=== PATIENT | female | born 1950 | race Caucasian/White ===

== ENCOUNTER → 2024-08-29 | Outpatient (CLI) | payer MEDICARE, OTHER, SELFPAY ==
[2024-08-29 14:13] LABS: Albumin, Serum 4.5 gm/dL (3.4-4.8); Anion Gap 4 (7-16); BUN/Creatinine Ratio 19 Ratio (12-20); Blood Urea Nitrogen 25 mg/dL (9-23); Calcium 9.6 mg/dL (8.3-10.6); Calcium (Corrected) 9.6 mg/dL (8.5-10.1); Carbon Dioxide 30.8 mMol/L (20.0-31.0); Chloride 103 mMol/L (98-107); Creatinine (Component) 1.3 mg/dL (0.6-1.3); Glucose 79 mg/dL (74-106); Osmolality,Calculated 279 (275-295); Phosphorous 4.2 mg/dL (2.4-5.1); Sodium 138 mMol/L (136-145); eGFR 43 See Note
== END | disposition home or self-care (01) ==
LOC: COPL 12:22
PROVIDERS: PCP Nurse Practitioner Family; Referring Provider Internal Medicine; Visit Provider Internal Medicine
DX: I12.9 Hypertensive chronic kidney disease with stage 1 through stage 4 chronic kidney disease, or unspecified chronic kidney disease (principal); N18.31 Chronic kidney disease, stage 3a; D63.1 Anemia in chronic kidney disease; R53.83 Other fatigue; R30.0 Dysuria; R35.0 Frequency of micturition; E55.9 Vitamin D deficiency, unspecified
CPT/HCPCS: 36415; 80069

== ENCOUNTER 2024-09-08 15:54 | Emergency (ER) | payer MEDICARE, OTHER, SELFPAY ==
[2024-09-08 15:56] VITALS: BMI 25.6
[2024-09-08 16:04] VITALS: BP 152/81; PULSE 66; RESP 20; TEMP 36.8; O2SAT 95
[2024-09-08 16:25] VITALS: BP 147/97; PULSE 60; RESP 15; TEMP 37; O2SAT 97
--- NOTE | 2024-09-08 16:28 | EDNOTE_ITS ---
ED Dizzyness RME/HPI General Chief Complaint: Dizziness Stated Complaint: Dizziness/weakness Time Seen by Provider: 09/08/24 16:12 Arrival date/time: 09/08/24 15:54 Limitations: no limitations RME / HPI RME / HPI Narrative: Patient has no significant complaints today. States she has not been resting much lately due to her needing surgery. Today came back to the care home facility that her and her reside and by mistake went into another patient's bathroom to make a phone call, thinking that is her 's bathroom. The care home facility nursing staff decided to route her to emergency department for evaluation. Patient states she suffers from chronic left-sided abdominal pain, but it is not bothering her. Also has orthostatic dizziness which is chronic as well and has not changed. I took over the care from Dr. Barba at 6 PM on 09/08/2024, see his notes for complete H&P and ED course. I reviewed all diagnostic test results. My interpretation of the EKG is sinus rhythm with nonspecific ST-T changes. My interpretation of the chest x-ray is no acute findings. My review of the head CT report is no acute findings. Blood tests and urine tests are unremarkable. Patient remained stable. Recommended more outpatient workup. Based on my best medical judgment, made decision no further evaluation or treatment indicated at this time. Patient understands and agrees to the discharge instructions customized and printed, see below. Simeon Hart MD Related Data Home Medications ?Medication ?Instructions ?Recorded ?Confirmed folic acid 1 mg tablet 1 mg PO QDAY SUPPLEMENT #0 tabs 10/25/13 07/17/24 hydrocodone 10 mg-acetaminophen 1 tab PO Q6H PRN Pain ##180 04/11/17 07/17/24 325 mg tablet levothyroxine 75 mcg tablet 75 mcg PO QDAY ##0 04/13/17 07/17/24 (Synthroid) tiotropium bromide 18 mcg capsule 1 cap inhalation QDAY #0 puffs 08/03/17 07/17/24 with inhalation device (Spiriva with HandiHaler) fentanyl 50 mcg/hr transdermal 50 mcg topical Q72H 06/25/18 07/17/24 patch fluoxetine 40 mg capsule (Prozac) 60 mg PO QDAY 02/28/19 07/17/24 amlodipine 10 mg tablet 5 mg PO QDAY 01/11/20 07/17/24 docusate sodium 100 mg tablet 100 mg PO QDAY 07/17/24 07/17/24 ergocalciferol (vitamin D2) 1,250 1,250 mcg PO QMONTH 07/17/24 07/17/24 mcg (50,000 unit) capsule (Drisdol) lubiprostone 24 mcg capsule 24 mcg PO BID PRN Constipation 07/17/24 07/17/24 Allergies Allergy/AdvReac Type Severity Reaction Status Date / Time Cephalosporins Allergy Severe Rash Verified 09/08/24 16:01 iodine Allergy Severe RASH, HIVES Verified 09/08/24 16:01 levofloxacin Allergy Severe DESTROYS Verified 09/08/24 16:01 FEET TENDONS Penicillins Allergy Severe Rash Verified 09/08/24 16:01 Sulfa (Sulfonamide Allergy Severe Rash Verified 09/08/24 16:01 Antibiotics) cefazolin Allergy Unknown RASH, Verified 09/08/24 16:01 DIFFICULTY BREATHING Review of Systems Review of Systems Systems Reviewed: All systems reviewed, normal except as documented Past Medical History Past Medical History NEUROLOGIC: Positive Neurological Disorders, Transient Ischemic Attacks (TIA) and Peripheral Neuropathy CARDIAC: Positive Cardiac Disorders, Cardiac Arrhythmia, Hypercholesterolemia, Congestive Heart Failure (CHF but per pt, it's gone away now; i don't take meds for it. ), Edema, Deep Vein Thrombosis and Hypertension RESPIRATORY: Positive Chronic Obstructive Pulmonary Disease (COPD), Asthma (COPD), Bronchitis and Pneumonia GASTROINTESTINAL: Positive Gastrointestinal Disorders, Diverticulitis, Diverticulosis, Obstructive Bowel and Gastroesophageal Reflux Disease GENITOURINARY: Positive Genitourinary Disorders and Renal Disease (stage 3/4 kidney disease) REPRODUCTIVE: Positive Previous Pregnancies MUSCULOSKELETAL: Positive Musculoskeletal Disorders ENT: Positive Cataracts and Deafness (pt uses hearing aid bilaterally) ENDOCRINE: Positive Endocrine Disorders and Hypothyroidism HEMATOLOGIC: Positive Clotting Problems PSYCHO/SOCIAL: Positive Depression and Anxiety OTHER HISTORY: Positive Hospitalization, Falls and Measles Family History FAMILY HISTORY: Positive Family Respiratory Disorders, Family Cardiac Disorders, Family Endocrine Disorders (per pt, my grandmother had diabetes. ) and Family Cancer (per pt , my sisters had uterine cancer. ) Surgical History SURGICAL: Positive Pacemaker, Abdominal Surgery, Bowel Surgery, Lumpectomy and Hysterectomy Social History SMOKING STATUS: Never smoker SUBSTANCE USE: does not use ED Exam General Limitations: Present no limitations General appearance: Present alert and in no apparent distress Head Head exam: Present atraumatic, normocephalic and normal inspection Eye Eye exam: Present normal appearance, PERRL and EOMI ENT ENT exam: Present normal exam and normal oropharynx Neck Neck exam: Present normal inspection and full ROM Chest Chest inspection: Present normal inspection and symmetric chest wall rise Respiratory Respiratory exam: Present normal lung sounds bilaterally Cardiovascular Cardiovascular exam: Present regular rate and normal rhythm Abdominal Exam Abdominal exam: Present soft and normal bowel sounds Extremities Exam Extremities exam: Present normal inspection and full ROM Back Exam Back exam: Present normal inspection and full ROM Neurological Exam Neurological exam: Present alert, CN II-XII intact and normal gait Psychiatric Psychiatric exam: Present normal affect and normal mood Skin Skin exam: Present warm and dry Course Course Course Narrative: 1800: Patient signed out to Dr. Hart, pending labs and final disposition. Quality Measures none Orders Category Date Time Status CT Screening NOW Care 09/08/24 18:53 Active It Lead STAT Care 09/08/24 16:32 Completed Continuous Pulse Oximetry ONCE Care 09/08/24 16:32 Active EKG (ED ONLY) *Do not use* NOW Care 09/08/24 16:32 Completed Insert IV STAT Care 09/08/24 16:32 Active Straight [In and Out Catheter] X1 Care 09/08/24 18:[address] head/brain w con Stat Exams 09/08/24 18:[address] head/brain wo con Stat Exams 09/08/24 20:14 Completed EKG (ED Only) Stat Exams 09/08/24 16:32 Draft XR chest 1V portable Stat Exams 09/08/24 16:32 Completed B-Type Natriuretic Peptide Stat Lab 09/08/24 17:40 Completed CBC Stat Lab 09/08/24 17:40 Completed Comprehensive Metabolic Panel Stat Lab 09/08/24 17:40 Completed Drug Screen,Urine Stat Lab 09/08/24 19:00 Completed Magnesium Stat Lab 09/08/24 17:40 Completed Troponin I Stat Lab 09/08/24 17:40 Completed VBG [Venous Blood Gas] Stat Lab 09/08/24 17:40 Completed Vital Signs Vital signs: Vital Signs Temperature 98.2 F 09/08/24 16:04 Pulse Rate 66 09/08/24 16:04 Respiratory Rate 20 09/08/24 16:04 Blood Pressure 152/81 H 09/08/24 16:04 Pulse Oximetry (%) 95 09/08/24 16:04 Oxygen Delivery Method Room Air 09/08/24 16:04 Pulse ox is 95% on room air which is adequate. Dizziness MDM Narrative MDM Narrative:: Catie Rosales am scribing for and in the presence of Dr. Barba. Patient data External records reviewed:: [facility] previous records (I reviewed ED visit on 08/15/2024) Clinical information provided by:: patient Social determinants that could affect healthcare access:: none Patient has the following chronic illnesses:: diverticulosis with multiple abdominal surgeries, hypertension, hyperlipidemia, DVT of left upper extremity, COPD, chronic pain, hypothyroidism How is presenting disease/condition affected by chronic disease/condition?: exacerbated by Evaluation data The following diagnostics were reviewed and interpreted by me:: lab results, radiology exam(s) and EKG tracing(s) (Atrial paced rhythm, rate 65, nonspecific ST and T-wave changes ) Lab and/or radiology exams considered but not ordered:: None Interpretation Summary: CBC within normal limits. Remainder of labs pending during sign out Medications / Prescriptions Medications or Prescriptions considered but not ordered:: None Medication administrations:: See above Consultations Consultation(s) initiated? (list below): No Diagnosis Most likely diagnosis given after review of the tests above:: Dizziness Admission Indicated Admission indicated?: not indicated Explain why admission is indicated or not indicated:: 1800: Patient signed out to Dr. Hart, pending labs and final disposition. Admission Request Was there a request for admission?: No Disposition Plan Disposition Plan: other (specify) (Patient signed out to Dr. Hart ) Discharge Plan Plan Patient Disposition: HOME (Self Care) Prescriptions/Referrals Prescriptions/Med Rec: No Action folic acid 1 MG tablet 1 mg PO QDAY Qty: 0 hydrocodone-acetaminophen 10-325 mg Tablet 1 tab PO Q6H PRN (Reason: Pain) Qty: 180 Hold Instructions: Resume on 07/18/24. levothyroxine [Synthroid] 75 mcg Tablet 75 mcg PO QDAY Qty: 0 tiotropium bromide [Spiriva with HandiHaler] 18 mcg Capsule, W/Inhalation Device 1 cap INHALATION QDAY Qty: 0 fentanyl 50 mcg/hr Patch 72 Hour 50 mcg Topical Q72H amlodipine 10 mg tablet 5 mg PO QDAY fluoxetine [Prozac] 40 mg Capsule 60 mg PO QDAY ergocalciferol (vitamin D2) [Drisdol] 1,250 mcg (50,000 unit) Capsule 1,250 mcg PO QMONTH docusate sodium 100 mg Tablet 100 mg PO QDAY lubiprostone 24 mcg Capsule 24 mcg PO BID PRN (Reason: Constipation) Referrals: No Primary/Family,Physician [Referring Provider] - In 1 week Problem List Clinical Impression: Dizziness Patient/Caregiver Discharge Instructions Discharge Activity: activity as tolerated Education Materials: ED Dizziness, Uncertain Cause Additional Instructions: Discharge instructions from Dr. Hart: 1. You were evaluated here today because the hospital nursing staff thought you seemed confused. 2. After extensive evaluation, there is no life-threatening condition. Such as stroke or heart attack. And the blood and urine test were completely normal. 3. See a private doctor on 09/11/2024 for recheck and further care. Ask for help with more investigation not available here, such as brain MRI and referrals to see specialists (such as neurologist). 4. Seek immediate medical care with any concerns. Print Language: Hungarian Stand Alone Forms: [facility] Award Info., Patient Portal Info Letter
[2024-09-08 16:29] VITALS: BP 125/75; BP 130/75; BP 141/71; PULSE 60; PULSE 67
--- NOTE | 2024-09-08 16:32 | EKG_ITS ---
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
--- NOTE | 2024-09-08 16:32 | XR_ITS ---
Examination: AP chest single view Technique: AP portable upright chest single view Exam date and time: September 08, 2024 1648 hrs. Comparison January 11, 2020 Indications: Onset chest pain today Findings: Normal heart size Mild to moderate elevation right hemidiaphragm Mild vascular congestion No lobar pneumonia or pulmonary edema Right subclavian Port-A-Cath tip SVC Cardiac leads satisfactory position Impression: Mild vascular congestion
[2024-09-08 17:54] LABS: Base Excess, Venous 0 (-3-3); O2 Saturation, Venous 76 % (96-97); PCO2, Venous 47 mmHg (36-56); PO2, Venous 40 mmHg (15-58); pH, Venous 7.35 (7.33-7.66)
[2024-09-08 17:58] LABS: Basophils # (Auto) 0.1 Thou/mm3 (0.0-0.2); Basophils % (Auto) 1 % (0-2.5); Eosinophils % (Auto) 1 % (0-10); Hematocrit 39.1 % (36.0-46.0); Hemoglobin 13.2 g/dL (12.0-16.0); Immature Granulocytes % (Auto) 0 % (0-0); Immature Granulocytes Auto 0.02 Thou/mm3 (0.00-0.00); Lymphocytes # (Auto) 2.5 Thou/mm3 (1.0-4.8); Lymphocytes % (Auto) 31 % (10-50); Mean Corpuscular HGB Conc 33.8 g/dl (31.0-37.0); Mean Corpuscular Hemoglobin 32.5 pg (25.0-35.0); Mean Corpuscular Volume 96 fL (80-100); Monocytes # (Auto) 0.8 Thou/mm3 (0.0-0.8); Monocytes % (Auto) 9 % (0-12); Neutrophils # (Auto) 4.7 Thou/mm3 (1.8-7.7); Neutrophils % (Auto) 59 % (37-80); Nucleated Red Blood Cell % 0 /100 WBC (0); Platelet Count 253 Thou/mm3 (140-440); RDW Standard Deviation 47.5 fL (36.4-46.3); Red Blood Count 4.06 Miln/mm3 (4.00-5.20)
[2024-09-08 18:09] VITALS: BP 157/83; PULSE 64; RESP 16; TEMP 36.6; O2SAT 99
[2024-09-08 18:16] LABS: B-Type Natriuretic Peptide 137 pg/mL (0-100)
[2024-09-08 18:19] LABS: Alanine Aminotransferase 15 U/L (10-49); Albumin, Serum 4.8 gm/dL (3.4-4.8); Albumin/Globulin Ratio 1.8 (1.2-2.2); Alkaline Phosphatase 93 U/L (46-116); Anion Gap 7 (7-16); Aspartate Amino Transferase 38 U/L (0-34); BUN/Creatinine Ratio 14 Ratio (12-20); Bilirubin,Total 0.6 mg/dL (0.3-1.2); Blood Urea Nitrogen 20 mg/dL (9-23); Calcium 9.9 mg/dL (8.3-10.6); Calcium (Corrected) 9.9 mg/dL (8.5-10.1); Carbon Dioxide 25.8 mMol/L (20.0-31.0); Chloride 105 mMol/L (98-107); Creatinine (Component) 1.4 mg/dL (0.6-1.3); Estimated Creatinine Clearance 30.9 mL/min (>60); Globulin 2.7 gm/dL (2.3-3.5); Glucose 101 mg/dL (74-106); Osmolality,Calculated 278 (275-295); Potassium 5.3 mMol/L (3.4-5.1); Sodium 138 mMol/L (136-145); Total Protein 7.5 gm/dL (5.7-8.2); Troponin I < 0.020 ng/mL (0.0-0.045); eGFR 39 See Note
[2024-09-08 18:52] VITALS: BP 133/81; PULSE 89; RESP 20; TEMP 36.8; O2SAT 95
[2024-09-08 19:58] LABS: Amphetamine/Methamp Scrn,U Negative (Negative); Barbiturate Screen,Urine Negative (Negative); Benzodiazepines Screen,Urine Negative (Negative); Benzoylecgonine Screen, Ur Negative (Negative); Fentanyl Screen,Urine Positive (Negative); Opiate Screen,Urine Positive (Negative); THC Screen,Urine Negative (Negative)
--- NOTE | 2024-09-08 20:14 | XR_ITS ---
Examination: CT brain head without contrast. 2-D sagittal coronal reconstructions Date and time of exam:September 08, 2024 2049 hrs. Indications: Onset dizziness altered mental status weakness today CTDI: vol (mGy):45.3 DLP: (mGycm):887 Technique: Multiple CT axial sections of the brain have been obtained, 5 mm slice thickness. Contrast has not been administered. 2-D sagittal, coronal reconstructions have been obtained Low dose protocols were performed. One or more of the following dose reduction techniques were used; automated exposure control, adjustment of the mA and/or KV according to patient size, use of iterative reconstruction technique. Findings: No significant ventricular enlargement. Intra-axial or extra-axial hemorrhage density is not seen. No mass effect or midline shift Basal cisterns are not remarkable. Fourth ventricle is midline. Cranial vault intact. Impression: Negative for acute hemorrhage, mass effect or midline shift Advise clinical correlation and follow-up accordingly
[2024-09-08 21:27] VITALS: BP 143/82; PULSE 14; PULSE 66; RESP 97; TEMP 37.1; O2SAT 96
== END 2024-09-08 21:58 | disposition home or self-care (01) ==
PROVIDERS: Emergency Medicine; Emergency Provider Emergency Medicine; PCP Family Medicine
DX: R42 Dizziness and giddiness (principal); R53.1 Weakness; I45.89 Other specified conduction disorders; Z95.0 Presence of cardiac pacemaker; E78.00 Pure hypercholesterolemia, unspecified; I50.9 Heart failure, unspecified; I11.0 Hypertensive heart disease with heart failure
CPT/HCPCS: 36415; 70450; 71045; 80053; 80307; 82803; 83735; 83880; 84484; 85025; 93005; 99284

== ENCOUNTER 2024-09-11 14:20 | Outpatient (RCR) | payer MEDICARE, OTHER, SELFPAY | END 2024-09-16 23:59 | disposition home or self-care (01) | LOC: SCTC 14:20 | PROVIDERS: PCP Family Medicine; Referring Provider Family Medicine; Visit Provider Internal Medicine Hematology & Oncology | DX: Z45.2 Encounter for adjustment and management of vascular access device (principal); Z86.718 Personal history of other venous thrombosis and embolism | CPT/HCPCS: 96523; A4216; J1642 ==

== ENCOUNTER 2024-09-21 21:02 | Emergency (ER) | payer MEDICARE, OTHER, SELFPAY ==
[2024-09-21 21:04] VITALS: BP 163/96; PULSE 72; RESP 17; TEMP 37.6; O2SAT 97
[2024-09-21 21:57] VITALS: PULSE 106; RESP 18; O2SAT 98; BMI 25.4
[2024-09-21 22:11] VITALS: BP 195/107; PULSE 71; RESP 18; TEMP 36.8; O2SAT 96
[2024-09-21 23:39] VITALS: BP 185/101; PULSE 80; RESP 18; O2SAT 99
--- NOTE | 2024-09-21 23:41 | EDNOTE_ITS ---
Lower Extremity Injury RME/HPI General Chief Complaint: Extremity Injury, Lower Stated Complaint: ABD PAIN Arrival date/time: 09/21/24 21:02 Limitations: no limitations RME / HPI RME / HPI Narrative: Dr. Cortés's Main ED Evaluation: 73yo female presents to the ED for a chief complaint of burning pain to her BLE. Patient has a history of nerve damage and normally takes 4 Norcos daily, but states she ran out. She states she had given her Norcos due to him being in severe pain before he was admitted to the hospital. She states she was spacing out her Norcos and has only been taking one per day. She states she doesn't have a f/u appointment with her pain provider until 09/29/24. Denies any falls, injuries or loss of consciousness. She denies any fever, chills, cough, chest pain or any other associated symptoms. She notes she is staying with a friend. PMHx: diverticulosis with multiple abdominal surgeries, hypertension, hyperlipidemia, DVT of left upper extremity, COPD, chronic pain, hypothyroidism Related Data Home Medications ?Medication ?Instructions ?Recorded ?Confirmed folic acid 1 mg tablet 1 mg PO QDAY SUPPLEMENT #0 tabs 10/25/13 07/17/24 hydrocodone 10 mg-acetaminophen 1 tab PO Q6H PRN Pain ##180 04/11/17 07/17/24 325 mg tablet levothyroxine 75 mcg tablet 75 mcg PO QDAY ##0 04/13/17 07/17/24 (Synthroid) tiotropium bromide 18 mcg capsule 1 cap inhalation QDAY #0 puffs 08/03/17 07/17/24 with inhalation device (Spiriva with HandiHaler) fentanyl 50 mcg/hr transdermal 50 mcg topical Q72H 06/25/18 07/17/24 patch fluoxetine 40 mg capsule (Prozac) 60 mg PO QDAY 02/28/19 07/17/24 amlodipine 10 mg tablet 5 mg PO QDAY 01/11/20 07/17/24 docusate sodium 100 mg tablet 100 mg PO QDAY 07/17/24 07/17/24 ergocalciferol (vitamin D2) 1,250 1,250 mcg PO QMONTH 07/17/24 07/17/24 mcg (50,000 unit) capsule (Drisdol) lubiprostone 24 mcg capsule 24 mcg PO BID PRN Constipation 07/17/24 07/17/24 Allergies Allergy/AdvReac Type Severity Reaction Status Date / Time Cephalosporins Allergy Severe Rash Verified 09/08/24 16:01 iodine Allergy Severe RASH, HIVES Verified 09/08/24 16:01 levofloxacin Allergy Severe DESTROYS Verified 09/08/24 16:01 FEET TENDONS Penicillins Allergy Severe Rash Verified 09/08/24 16:01 Sulfa (Sulfonamide Allergy Severe Rash Verified 09/08/24 16:01 Antibiotics) cefazolin Allergy Unknown RASH, Verified 09/08/24 16:01 DIFFICULTY BREATHING Review of Systems Review of Systems Systems Reviewed: All systems reviewed, normal except as documented Past Medical History Past Medical History NEUROLOGIC: Positive Neurological Disorders, Transient Ischemic Attacks (TIA) and Peripheral Neuropathy; Negative Seizures CARDIAC: Positive Cardiac Disorders, Cardiac Arrhythmia, Hypercholesterolemia, Edema, Deep Vein Thrombosis and Hypertension; Negative Congestive Heart Failure RESPIRATORY: Positive Asthma, Bronchitis and Pneumonia; Negative Chronic Obstructive Pulmonary Disease (COPD) GASTROINTESTINAL: Positive Gastrointestinal Disorders, Diverticulitis, Diverticulosis, Obstructive Bowel and Gastroesophageal Reflux Disease GENITOURINARY: Positive Genitourinary Disorders and Renal Disease REPRODUCTIVE: Positive Previous Pregnancies MUSCULOSKELETAL: Positive Musculoskeletal Disorders ENT: Positive Cataracts and Deafness ENDOCRINE: Positive Endocrine Disorders and Hypothyroidism; Negative Diabetes Mellitus Type 1 or Diabetes Mellitus Type 2 HEMATOLOGIC: Positive Clotting Problems; Negative Blood Disorders or Sickle Cell Disease PSYCHO/SOCIAL: Positive Depression and Anxiety OTHER HISTORY: Positive Hospitalization, Falls and Measles; Negative Shingles, Blood Transfusions, Anesthesia Reactions or Cancer Family History FAMILY HISTORY: Positive Family Respiratory Disorders, Family Cardiac Disorders and Family Cancer Surgical History SURGICAL: Positive Pacemaker, Abdominal Surgery, Bowel Surgery, Lumpectomy and Hysterectomy Social History SMOKING STATUS: Never smoker SUBSTANCE USE: does not use ED Exam General Limitations: Present no limitations General appearance: Present alert, in no apparent distress, anxious and other (is pacing around the room and is upset) Head Head exam: Present atraumatic Eye Eye exam: Present normal appearance, PERRL and EOMI ENT ENT exam: Present normal exam, normal oropharynx and mucous membranes moist Neck Neck exam: Present normal inspection, full ROM and trachea midline Chest Chest inspection: Present normal inspection and symmetric chest wall rise Respiratory Respiratory exam: Present normal lung sounds bilaterally Cardiovascular Cardiovascular exam: Present regular rate, normal rhythm and normal heart sounds Abdominal Exam Abdominal exam: Present soft, normal bowel sounds and other (large); Absent tenderness Extremities Exam Extremities exam: Present full ROM and other (has varicose veins to her BLE, nonbulging); Absent tenderness or pedal edema Back Exam Back exam: Present full ROM and other (kyphotic) Neurological Exam Neurological exam: Present alert, oriented X3 and CN II-XII intact Psychiatric Psychiatric exam: Present normal affect and normal mood Skin Skin exam: Present warm, dry, intact and normal color Course Quality Measures none Orders Category Date Time Status BMP [Basic Metabolic Panel] Stat Lab 09/21/24 23:52 Completed CBC Stat Lab 09/21/24 23:52 Completed HYDROcodone/APAP 10/325 [[place] 10/325] Med 09/21/24 23:42 Discontinued 1 tab PO X1 ONE Morphine Inj Med 09/22/24 00:20 Discontinued 4 mg IVP X1 ONE Morphine Inj [Morphine Sulf Inj] Med 09/21/24 23:52 Active 4 mg IVP Q1H PRN Morphine Inj [Morphine Sulf Inj] Med 09/22/24 00:08 Active 4 mg IVP Q1H PRN Ondansetron Inj [Zofran Inj] Med 09/21/24 23:50 Discontinued 4 mg IV X1 ONE Sodium Chloride 0.9% 500 ml [Ns] 500 ml Med 09/21/24 23:50 Discontinued IV 999 mls/hr fentaNYL (Patch) [Duragesic] Med 09/21/24 23:41 Discontinued 25 mcg TOP X1 ONE Vital Signs Vital signs: Vital Signs Temperature 99.6 F 09/21/24 21:04 Pulse Rate 72 09/21/24 21:04 Respiratory Rate 17 09/21/24 21:04 Blood Pressure 163/96 H 09/21/24 21:04 Pulse Oximetry (%) 97 09/21/24 21:04 Oxygen Delivery Method Room Air 09/21/24 21:04 Pulse ox is 97% on room air, which is normal according to my interpretation. Extremity Injury, Lower Patient data External records reviewed:: [facility] previous records (Per chart review, patient was seen here on 09/08/24 for dizziness.) Clinical information provided by:: patient Social determinants that could affect healthcare access:: none Patient has the following chronic illnesses:: diverticulosis with multiple abdominal surgeries, hypertension, hyperlipidemia, DVT of left upper extremity, COPD, chronic pain, hypothyroidism How is presenting disease/condition affected by chronic disease/condition?: caused by Evaluation data The following diagnostics were reviewed and interpreted by me:: lab results Lab and/or radiology exams considered but not ordered:: none Interpretation Summary: CBC is normal, BMP is normal, according to my interpretation. Medications / Prescriptions Medications or Prescriptions considered but not ordered:: none Medication administrations:: Medication Administration History Morphine Sulfate (Morphine Sulf Inj 4 Mg/Ml Vial) 4 mg IVP Q1H PRN PRN Reason: PAIN Morphine Sulfate (Morphine Sulf Inj 4 Mg/Ml Vial) 4 mg IVP Q1H PRN PRN Reason: LEG CRAMPS Discontinued Medications Hydrocodone Bitart/Acetaminophen (Hydrocodone/Apap 10/325 Tab) 1 tab PO X1 ONE Stop: 09/21/24 23:43 Last Admin: 09/22/24 00:41 Dose: 1 tab Documented By: NOELLE Fentanyl (Fentanyl 25 Mcg Transdermal Patch) 25 mcg TOP X1 ONE; Protocol Stop: 09/21/24 23:42 Last Admin: 09/22/24 02:05 Dose: 25 mcg Documented By: NOELLE Sodium Chloride (Ns) 500 mls @ 999 mls/hr IV .Q31M ONE Stop: 09/22/24 00:20 Last Infusion: 09/22/24 02:13 Dose: Infused Documented By: Admin: 09/22/24 00:31 Dose: 999 mls/hr Documented By: NOELLE Morphine Sulfate (Morphine Sulf Inj 10 Mg/Ml Vial) 4 mg IVP X1 ONE Stop: 09/22/24 00:21 Last Admin: 09/22/24 00:30 Dose: 4 mg Documented By: NOELLE Ondansetron HCl (Ondansetron Inj 2 Mg/Ml Inj 2 Ml) 4 mg IV X1 ONE; Protocol Stop: 09/21/24 23:51 Last Admin: 09/22/24 00:31 Dose: 4 mg Documented By: NOELLE see above Consultations Consultation(s) initiated? (list below): No Diagnosis Extremity Injury, Lower Differential Diagnosis: other (pain control, anxiety, worsening of underlying condition, recurrent DVT) Most likely diagnosis given after review of the tests above:: see below Admission Indicated Admission indicated?: not indicated Admission Request Was there a request for admission?: No Disposition Plan Disposition Plan: Discharge Discharge Attestation Discharge Attestation: The patient and all family members were given an opportunity to ask questions and understood the discharge instructions. Discharge instructions specifically effects, indications for sooner follow up or return to the emergency department, and the expected course of current diagnosis. Patient condition: Stable Discharge Plan Plan Patient Disposition: HOME (Self Care) Patient condition on transfer: Stable Prescriptions/Referrals Prescriptions/Med Rec: No Action folic acid 1 MG tablet 1 mg PO QDAY Qty: 0 hydrocodone-acetaminophen 10-325 mg Tablet 1 tab PO Q6H PRN (Reason: Pain) Qty: 180 Hold Instructions: Resume on 07/18/24. levothyroxine [Synthroid] 75 mcg Tablet 75 mcg PO QDAY Qty: 0 tiotropium bromide [Spiriva with HandiHaler] 18 mcg Capsule, W/Inhalation Device 1 cap INHALATION QDAY Qty: 0 fentanyl 50 mcg/hr Patch 72 Hour 50 mcg Topical Q72H amlodipine 10 mg tablet 5 mg PO QDAY fluoxetine [Prozac] 40 mg Capsule 60 mg PO QDAY ergocalciferol (vitamin D2) [Drisdol] 1,250 mcg (50,000 unit) Capsule 1,250 mcg PO QMONTH docusate sodium 100 mg Tablet 100 mg PO QDAY lubiprostone 24 mcg Capsule 24 mcg PO BID PRN (Reason: Constipation) Referrals: Moon Loyola DOCUMENTATION BILLING CLERK [Primary Care Provider] - In 1 week Problem List Clinical Impression: Chronic pain syndrome Patient/Caregiver Discharge Instructions Education Materials: ED Chronic Pain Print Language: Luxembourgish Stand Alone Forms: [facility] Award Info., Patient Portal Info Letter
[2024-09-22] MEDS: MORPHINE SULF INJ 10 MG/ML VIAL 4 MG IVP ×2 (00:30→05:09)
[2024-09-22] MEDS: ONDANSETRON INJ 2 MG/ML INJ 2 ML 4 MG IV (00:31)
[2024-09-22] MEDS: SODIUM CHLORIDE 0.9% 500 ML 500 ML 999 ML IV (00:31)
[2024-09-22 00:34] LABS: Basophils # (Auto) 0.1 Thou/mm3 (0.0-0.2); Basophils % (Auto) 1 % (0-2.5); Eosinophils # (Auto) 0.2 Thou/mm3 (0.0-0.5); Eosinophils % (Auto) 2 % (0-10); Hematocrit 44.2 % (36.0-46.0); Hemoglobin 14.8 g/dL (12.0-16.0); Immature Granulocytes % (Auto) 0 % (0-0); Immature Granulocytes Auto 0.02 Thou/mm3 (0.00-0.00); Lymphocytes # (Auto) 1.9 Thou/mm3 (1.0-4.8); Lymphocytes % (Auto) 23 % (10-50); Mean Corpuscular HGB Conc 33.5 g/dl (31.0-37.0); Mean Corpuscular Hemoglobin 32.5 pg (25.0-35.0); Mean Corpuscular Volume 97 fL (80-100); Monocytes # (Auto) 0.7 Thou/mm3 (0.0-0.8); Monocytes % (Auto) 8 % (0-12); Neutrophils # (Auto) 5.8 Thou/mm3 (1.8-7.7); Neutrophils % (Auto) 67 % (37-80); Nucleated Red Blood Cell % 0 /100 WBC (0); Platelet Count 279 Thou/mm3 (140-440); RDW Standard Deviation 47.9 fL (36.4-46.3); Red Blood Count 4.56 Miln/mm3 (4.00-5.20); White Blood Count 8.6 Thou/mm3 (3.6-11.0)
[2024-09-22] MEDS: HYDROcodone/APAP 10/325 TAB PO (00:41)
[2024-09-22 00:42] LABS: Anion Gap 8 (7-16); BUN/Creatinine Ratio 14 Ratio (12-20); Blood Urea Nitrogen 17 mg/dL (9-23); Calcium 10.2 mg/dL (8.3-10.6); Chloride 104 mMol/L (98-107); Creatinine (Component) 1.2 mg/dL (0.6-1.3); Estimated Creatinine Clearance 35.9 mL/min (>60); Glucose 115 mg/dL (74-106); Osmolality,Calculated 281 (275-295); Potassium 4.2 mMol/L (3.4-5.1); Sodium 140 mMol/L (136-145); eGFR 48 See Note
[2024-09-22] MEDS: fentaNYL 25 mCg TRANSDERMAL PATCH TOP (02:05)
[2024-09-22 02:14] VITALS: BP 158/82; PULSE 86; RESP 18; TEMP 36.6; O2SAT 97
[2024-09-22 02:46] VITALS: BP 121/68; PULSE 64; RESP 16; O2SAT 95
[2024-09-22 04:05] VITALS: BP 120/73; PULSE 72; RESP 18; TEMP 36.6; O2SAT 95
[2024-09-22 04:48] VITALS: BP 113/67; PULSE 69; RESP 18; TEMP 36.6; O2SAT 94
--- NOTE | 2024-09-22 04:49 | PC.NURSE ---
Pt asleep. Arouses easily. once awaken pt states she is still haveing pain and is asking for another pain shot.
== END 2024-09-22 05:26 | disposition home or self-care (01) ==
PROVIDERS: Emergency Provider Emergency Medicine; PCP Nurse Practitioner Family
DX: M79.605 Pain in left leg (principal); M79.604 Pain in right leg; G89.4 Chronic pain syndrome
CPT/HCPCS: 36415; 80048; 85025; 96374; 96375; 99284; J2270; J2405; J7040; A9270

== ENCOUNTER 2024-11-14 14:00 | Outpatient (RCR) | payer MEDICARE, OTHER, SELFPAY | END 2024-11-17 23:59 | disposition home or self-care (01) | LOC: SCTC 14:00 | PROVIDERS: PCP Nurse Practitioner Family; Referring Provider Nurse Practitioner Family; Visit Provider Internal Medicine Hematology & Oncology | DX: Z45.2 Encounter for adjustment and management of vascular access device (principal); Z86.718 Personal history of other venous thrombosis and embolism | CPT/HCPCS: 36591; A4216; J1642 ==

== ENCOUNTER → 2024-12-06 | Outpatient (CLI) | payer MEDICARE, OTHER, SELFPAY ==
[2024-12-06 16:56] LABS: Albumin, Serum 4.3 gm/dL (3.4-4.8); Anion Gap 9 (7-16); BUN/Creatinine Ratio 18 Ratio (12-20); Blood Urea Nitrogen 22 mg/dL (9-23); Calcium 9.6 mg/dL (8.3-10.6); Calcium (Corrected) 9.6 mg/dL (8.5-10.1); Carbon Dioxide 29.4 mMol/L (20.0-31.0); Chloride 103 mMol/L (98-107); Creatinine (Component) 1.2 mg/dL (0.6-1.3); Glucose 95 mg/dL (74-106); Osmolality,Calculated 284 (275-295); Phosphorous 3.9 mg/dL (2.4-5.1); Potassium 5.1 mMol/L (3.4-5.1); Sodium 141 mMol/L (136-145); eGFR 47 See Note
== END | disposition home or self-care (01) ==
PROVIDERS: PCP Internal Medicine; Referring Provider Internal Medicine; Visit Provider Internal Medicine
DX: I12.9 Hypertensive chronic kidney disease with stage 1 through stage 4 chronic kidney disease, or unspecified chronic kidney disease (principal); N18.31 Chronic kidney disease, stage 3a; D63.1 Anemia in chronic kidney disease; R30.0 Dysuria; R53.83 Other fatigue; R35.0 Frequency of micturition; E55.9 Vitamin D deficiency, unspecified
CPT/HCPCS: 36415; 80069

== ENCOUNTER → 2025-03-07 | Outpatient (CLI) | payer MEDICARE, OTHER, SELFPAY ==
[2025-03-07 15:59] LABS: Collection Type, Urine Clean Catch
[2025-03-07 16:49] LABS: Basophils # (Auto) 0.1 Thou/mm3 (0.0-0.2); Basophils % (Auto) 1 % (0-2.5); Eosinophils # (Auto) 0.3 Thou/mm3 (0.0-0.5); Eosinophils % (Auto) 3 % (0-10); Hematocrit 39.9 % (36.0-46.0); Hemoglobin 13.2 g/dL (12.0-16.0); Immature Granulocytes % (Auto) 0 % (0-0); Immature Granulocytes Auto 0.03 Thou/mm3 (0.00-0.00); Lymphocytes # (Auto) 2.3 Thou/mm3 (1.0-4.8); Lymphocytes % (Auto) 27 % (10-50); Mean Corpuscular HGB Conc 33.1 g/dl (31.0-37.0); Mean Corpuscular Volume 97 fL (80-100); Monocytes # (Auto) 0.6 Thou/mm3 (0.0-0.8); Monocytes % (Auto) 8 % (0-12); Neutrophils # (Auto) 5.1 Thou/mm3 (1.8-7.7); Neutrophils % (Auto) 60 % (37-80); Nucleated Red Blood Cell % 0 /100 WBC (0); Platelet Count 268 Thou/mm3 (140-440); RDW Standard Deviation 44.4 fL (36.4-46.3); Red Blood Count 4.12 Miln/mm3 (4.00-5.20); White Blood Count 8.5 Thou/mm3 (3.6-11.0)
[2025-03-07 16:55] LABS: Bilirubin,Urine Negative (Negative); Blood,Urine Negative (Negative); Clarity,Urine Clear (Clear/Hazy); Color,Urine Lt-Yellow (Lt Yel-Yel); Culture Indicated,Urine Not Indicated; Glucose, Urine Negative (Negative); Hyaline Casts,Urine < 1 /hpf (0-1); Ketones,Urine Negative (Negative); Leukocyte Esterase,Urine Negative (Negative); Nitrite,Urine Negative (Negative); PH,Urine 7.5 (5.0-7.0); Protein,Urine Trace (Neg - Trace); RBC,Urine 1 /hpf (0-3); Specific Gravity,Urine 1.019 (1.001-1.035); Squamous Epithelial Cell,Urine < 1 /hpf (0-5); Urobilinogen,Urine Negative mg/dL (0.0-1.0); WBC,Urine < 1 /hpf (0-5)
[2025-03-07 17:21] LABS: Alanine Aminotransferase 10 U/L (10-49); Albumin, Serum 4.4 gm/dL (3.4-4.8); Albumin/Globulin Ratio 1.6 (1.2-2.2); Alkaline Phosphatase 95 U/L (46-116); Anion Gap 8 (7-16); Aspartate Amino Transferase 27 U/L (0-34); BUN/Creatinine Ratio 15 Ratio (12-20); Bilirubin,Total 0.5 mg/dL (0.3-1.2); Blood Urea Nitrogen 19 mg/dL (9-23); Calcium 8.9 mg/dL (8.3-10.6); Calcium (Corrected) 8.9 mg/dL (8.5-10.1); Carbon Dioxide 30.4 mMol/L (20.0-31.0); Cardiac Risk Estimate 4.4 RATIO (3.7-5.6); Chloride 102 mMol/L (98-107); Cholesterol 233 mg/dL (132-200); Creatinine (Component) 1.3 mg/dL (0.6-1.3); Globulin 2.7 gm/dL (2.3-3.5); Glucose 94 mg/dL (74-106); HDL Cholesterol 53 mg/dL (40-60); LDL Cholesterol,Calculated 135 mg/dL (0-130); Osmolality,Calculated 281 (275-295); Phosphorous 3.6 mg/dL (2.4-5.1); Sodium 140 mMol/L (136-145); Thyroid Stimulating Hormone 7.26 uIU/mL (0.55-4.78); Total Protein 7.1 gm/dL (5.7-8.2); Triglycerides 227 mg/dL (30-150); eGFR 43 See Note
== END | disposition home or self-care (01) ==
LOC: COPL 15:38
PROVIDERS: PCP Nurse Practitioner Family; Referring Provider Internal Medicine; Visit Provider Internal Medicine
DX: Z00.00 Encounter for general adult medical examination without abnormal findings (principal); E03.9 Hypothyroidism, unspecified; I12.9 Hypertensive chronic kidney disease with stage 1 through stage 4 chronic kidney disease, or unspecified chronic kidney disease; N18.31 Chronic kidney disease, stage 3a; D63.1 Anemia in chronic kidney disease; E55.9 Vitamin D deficiency, unspecified; R35.0 Frequency of micturition; R53.83 Other fatigue; R30.0 Dysuria
CPT/HCPCS: 36415; 80053; 80061; 81001; 84100; 84443; 85025

== ENCOUNTER 2025-03-19 14:31 | Outpatient (RCR) | payer MEDICARE, OTHER, SELFPAY ==
[2025-03-19 16:29] LABS: Basophils # (Auto) 0.1 Thou/mm3 (0.0-0.2); Basophils % (Auto) 1 % (0-2.5); Eosinophils # (Auto) 0.3 Thou/mm3 (0.0-0.5); Eosinophils % (Auto) 5 % (0-10); Hematocrit 37.5 % (36.0-46.0); Hemoglobin 12.8 g/dL (12.0-16.0); Immature Granulocytes % (Auto) 0 % (0-0); Immature Granulocytes Auto 0.02 Thou/mm3 (0.00-0.00); Lymphocytes # (Auto) 1.9 Thou/mm3 (1.0-4.8); Lymphocytes % (Auto) 30 % (10-50); Mean Corpuscular HGB Conc 34.1 g/dl (31.0-37.0); Mean Corpuscular Hemoglobin 32.7 pg (25.0-35.0); Mean Corpuscular Volume 96 fL (80-100); Monocytes # (Auto) 0.6 Thou/mm3 (0.0-0.8); Monocytes % (Auto) 9 % (0-12); Neutrophils # (Auto) 3.5 Thou/mm3 (1.8-7.7); Neutrophils % (Auto) 55 % (37-80); Nucleated Red Blood Cell % 0 /100 WBC (0); Platelet Count 256 Thou/mm3 (140-440); RDW Standard Deviation 44.5 fL (36.4-46.3); Red Blood Count 3.91 Miln/mm3 (4.00-5.20); White Blood Count 6.3 Thou/mm3 (3.6-11.0)
[2025-03-19 16:51] LABS: Alanine Aminotransferase 12 U/L (10-49); Albumin, Serum 4.2 gm/dL (3.4-4.8); Albumin/Globulin Ratio 1.8 (1.2-2.2); Alkaline Phosphatase 92 U/L (46-116); Anion Gap 12 (7-16); Aspartate Amino Transferase 25 U/L (0-34); BUN/Creatinine Ratio 17 Ratio (12-20); Bilirubin,Total 0.3 mg/dL (0.3-1.2); Blood Urea Nitrogen 22 mg/dL (9-23); Calcium 8.7 mg/dL (8.3-10.6); Calcium (Corrected) 8.7 mg/dL (8.5-10.1); Carbon Dioxide 29.5 mMol/L (20.0-31.0); Chloride 103 mMol/L (98-107); Creatinine (Component) 1.3 mg/dL (0.6-1.3); Globulin 2.4 gm/dL (2.3-3.5); Glucose 101 mg/dL (74-106); Osmolality,Calculated 290 (275-295); Potassium 4.1 mMol/L (3.4-5.1); Sodium 144 mMol/L (136-145); Total Protein 6.6 gm/dL (5.7-8.2); eGFR 43 See Note
--- NOTE | 2025-03-22 09:57 | CTCFLWUP_ITS ---
Patient: APRIL ESPINOSA : 1950 Page 2 of 2 FOLLOW UP NOTE DATE OF SERVICE: 03/20/2025 NAME: APRIL ESPINOSA ACCOUNT: [id number] : 1950 AGE: 74 INTERVAL HISTORY: No new complaints ONCOLOGY HISTORY: DIAGNOSIS: unprovoked left proximal upper extremity DVT (09/01/2019). Started on Eliquis which was discontinued on 08/27/2021 History of right upper extremity DVT 10 years ago. Patient is allergic to iodine. Ms. Espinosa has pacemaker in place currently being followed by Dr. Martinez. REASON FOR TODAY?S VISIT: This is office follow-up visit. Ms. Espinosa is here at [facility] ([facility]] cancer Center. She is clinically doing well. Denies any new complaints. Denies any cough, chest pain, abdominal pain or leg cramps. Did not have any new DVT since last visit. Has good appetite and good energy levels. Ambulating well without any help. HISTORY OF PRESENT ILLNESS: April Espinosa is a 74-year-old ENG speaking female with following history. 2009: Patient developed unprovoked right upper extremity DVT. She was treated with clot busters here at [facility]. After that she was treated with warfarin for about 5 years. 09/01/2019: Left upper extremity pain and swelling. Doppler ultrasound of the left upper extremity?occlusive deep vein thrombosis in the entire basilic vein. Brachial, cephalic, subclavian, axillary, jugular veins are open. She was treated with alteplase and discharged home on Eliquis. 09/02/2019: Unilateral left leg duplex scan?negative for DVT. During the VQ study on the same day patient developed chest pain with difficulty breathing. The study was discontinued. CODE MARIUSZ was called. Patient was transferred to telemetry. As per discharge summary patient was thought to have a panic attack. 02/06/2020: CT scan of the neck, chest, abdomen and pelvis without contrast. Patient is allergic to iodine. 03/13/2020: Right breast ultrasound did not show any solid mass. 05/10/2020: Factor V Leyden mutation negative, prothrombin 2020 mutation negative, protein C, protein S, Antithrombin III activity and antigen levels are in the normal range. 05/10/2020: Left upper extremity ultrasound 05/10/2020: Right breast diagnostic mammogram showed a 6 mm well marginated oval mass in the upper outer quadrant of right breast. 01/21/2021: Left upper extremity venous Doppler ultrasound? 08/22/2020: Left upper extremity Doppler ultrasound study? 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 amlodipine - 5 mg 1 tab Daily 2. fentanyl - 25 mcg/hr 1 Patch Every 72 Hours 3. folic acid - 1 mg 1 tab Daily 4. levothyroxine - 75 mcg 1 tab Daily 5. lubiprostone - 24 mcg 1 Capsule Twice a Day 6. Nasonex - 50 mcg/actuation 2 spray Daily 7. nitroglycerin - 0.4 mg 1 tab As directed 8. Iliff - 10-325 mg 1 tab Every 6 Hours 9. ondansetron - 8 mg 1 tab Every 12 Hours 10. PROzac - 40 mg 1 Capsule Daily 11. valACYclovir - 500 mg 2 tab Twice a Day Medications Last Reconciled by Matilde Mendoza MA on 03/20/2024 ALLERGIES: PENICILLINS; SULFA(SULFONAMIDE ANTIBIOTICS); CEPHALOSPORINS; iodine; levofloxacin REVIEW OF SYSTEMS: A complete 14-point review of systems was performed and is negative except as noted in interval history. PHYSICAL EXAMINATION: VITAL SIGNS: PAIN: 0 - No pain ECOG Performance Status: 0 - Asymptomatic and fully active GENERAL APPEARANCE: Appears well, in no apparent distress, appropriately interactive. HEENT: Normocephalic, no temporal wasting, normal conjunctiva, no scleral icterus, normal hearing, lips without lesions, neck normal range of motion. CARDIOVASCULAR: Not assessed. PULMONARY: Normal respiratory effort, no respiratory distress or use of accessory muscles, speaking in full sentences, no tachypnea. EXTREMITIES: No pedal edema or cyanosis. SKIN: Normal skin appearance. NEUROLOGIC: Alert and oriented x4. PSHYCHIATRIC: Appropriate affect, mood normal, behavior normal, intact thought and speech. LABORATORY DATA: I have personally reviewed and interpreted each of the patient?s relevant lab tests, abnormal findings are below: Date 03/07/25 03/19/25 ??WHITE?BLOOD?COUNT?(Thou/mm3) 8.5 6.3 ??RED?BLOOD?COUNT?(Miln/mm3) 4.12 3.91?L ??HEMOGLOBIN?(gm/dl) 13.2 12.8 ??HEMATOCRIT?(%) 39.9 37.5 ??PLATELET?COUNT?(Thou/mm3) 268 256 ??NEUTROPHILS?%,?AUTO?(%) 60 55 ??LYMPH?%,?AUTO?(%) 27 30 ??NEUTROPHILS,?AUTO?(Thou/mm3) 5.1 3.5 ??GLUCOSE,RANDOM?(mg/dL) 94 101 ??BLOOD?UREA?NITROGEN?(mg/dL) 19 22 ??CREATININE?(mg/dL) 1.30 1.30 ??SODIUM?(mmol/L) 140 144 ??POTASSIUM?(mmol/L) 5.0 4.1 ??CHLORIDE?(mmol/L) 102 103 ??CrCl?(CandG)?(ml/min) 36.68 35.88 ??AST/SGOT?(Unit/L) 27 25 ??ALT/SGPT?(Unit/L) 10 12 ??ALKALINE?PHOSPHATASE?(Unit/L) 95 92 ??BILIRUBIN,?TOTAL?(mg/dL) 0.5 0.3 ??PROTEIN?TOTAL?(gm/dl) 7.1 6.6 ??ALBUMIN,?SERUM?(gm/dl) 4.4 4.2 ??GLOBULIN?(gm/dl) 2.7 2.4 ??ALBUMIN/GLOBULIN?RATIO 1.6 1.8 ??CALCIUM,?SERUM?(mg/dL) 8.9 8.7 ??CALCIUM?SERUM?(CORRECTED)?(mg/dL) 8.9 8.7 ASSESSMENT/PLAN: 1. History of left upper extremity DVT (09/01/2019) treated with Eliquis for about 2 years. Eliquis was discontinued on 08/27/2021 History of right upper extremity DVT unprovoked about 10 years ago treated with what appears to be Alteplase followed by warfarin and aspirin. Patient took warfarin for about 5 years and stopped that medication. History of multiple abdominal surgeries. Last surgery was done about 10 years ago. No specific intervention today. I will see her back in clinic in 1 year for follow-up. ORDERS: Order # Description [id number] Geodetic Technician RETURN TO CLINIC: BILLING AND COMPLIANCE: I reviewed external records from providers outside my specialty as summarized above. I spent a total of 50 minutes on this patient?s care on the day of their visit excluding time spent related to any billed procedures. This time includes time spent with the patient as well as time spent documenting in the medical record, reviewing patients records and tests, obtaining history, placing orders, communicating with other healthcare professionals, counseling the patient, family or caregiver, and/or care coordination for the diagnoses above. Electronically Signed by: Gurmeet Rivas MD T: 9:55 AM CC: PCP: Osvaldo Villalba Referring: Osvaldo Villalba This document was completed utilizing speech recognition software. Grammatical errors, random word insertions, pronoun errors, and incomplete sentences are an occasional consequence of this system due to software limitations, ambient noise, and hardware issues. Any formal questions or concerns about the content, text or information contained within the body of this dictation should be directly addressed to the provider for clarification.
== END 2025-04-16 23:59 | disposition home or self-care (01) ==
LOC: SCTC 14:31
PROVIDERS: PCP Nurse Practitioner Family; Referring Provider Internal Medicine; Visit Provider Internal Medicine Hematology & Oncology
DX: Z09 Encounter for follow-up examination after completed treatment for conditions other than malignant neoplasm (principal); Z86.718 Personal history of other venous thrombosis and embolism
CPT/HCPCS: 36591; 80053; 85025; A4216; J1642

== ENCOUNTER → 2025-03-22 | Outpatient (CLI) | payer MEDICARE, OTHER, SELFPAY ==
--- NOTE | 2025-03-22 15:11 | XR_ITS ---
Examination: Thoracic spine 3 views Technique one AP lateral coned lateral upper dorsal spine 3 views Date and time: March 22, 2025 1521 hours INDICATIONS: Back pain beginning 2 months ago. FINDINGS: Significant osteopenia Thoracic dextroscoliosis 10 degrees Moderate diffuse thoracic disc narrowing No acute thoracic fracture Intact pedicles IMPRESSION: Moderate diffuse thoracic degenerative disc disease
== END | disposition home or self-care (01) ==
LOC: CDIM 15:00
PROVIDERS: PCP Family Medicine; Referring Provider Nurse Practitioner Family; Visit Provider Nurse Practitioner Family
DX: M51.34 Other intervertebral disc degeneration, thoracic region (principal)
CPT/HCPCS: 72070

== ENCOUNTER 2025-04-17 12:55 | Outpatient (RCR) | payer MEDICARE, OTHER, SELFPAY | END 2025-05-17 23:59 | disposition home or self-care (01) | LOC: SCTC 12:55 | PROVIDERS: PCP Family Medicine; Referring Provider Family Medicine; Visit Provider Internal Medicine Hematology & Oncology | DX: Z86.718 Personal history of other venous thrombosis and embolism (principal); Z95.0 Presence of cardiac pacemaker | CPT/HCPCS: 99424; 99425 ==

== ENCOUNTER 2025-04-20 18:37 | Emergency (ER) | payer MEDICARE, OTHER, SELFPAY ==
[2025-04-20 18:48] VITALS: BP 166/98; PULSE 91; RESP 18; TEMP 37.1; O2SAT 96; BMI 24.5
--- NOTE | 2025-04-20 19:03 | PD.EDBACK ---
ED Back Injury Pain RME/HPI General Chief Complaint: Back Pain/Injury Stated Complaint: Legs are burning X 2 weeks, back pain Time Seen by Provider: 04/20/25 18:41 Arrival date/time: 04/20/25 18:37 RME / HPI RME / HPI Narrative: This section includes all my notes and documentations, including HPI, PE, and ED course. Simeon Hart MD HPI: 74 y/o female with Hx of Anxiety, TIA, Peripheral Neuropathy, DVT, HTN here with severe pain. Has chronic pain. But in the past couple weeks, she reports severe low back pain and burning pain in the legs (L > R). Reports numbness and tingling in the legs. Can't walk anymore. Uncertain about paralysis in the lower extremities. Reports losing control of the bladder and bowels. No other complaints. ROS: All negative except as documented in HPI. Physical Exam: General: Alert and oriented. In severe pain. Eyes: Conjunctivae and lids clear. ENT: No nasal congestion. Neck: Supple. Heart: RRR. Lungs: No respiratory distress. Good air movement. No rhonchi, wheezing, rales. Abdomen: Soft and nontender. Normal bowel sounds. No distension. No rebound or guarding. Back: Equivocal lumbar spinal tenderness. Legs: No clubbing, cyanosis, edema. Skin: Warm and dry. Neuro: Alert and oriented X 3. Equivocal left foot drop. I reviewed all diagnostic test results: My interpretation of the CXR is NAD. My review of the L-Spine CT report is: L5-S1 3 mm and lumbar disc bulge with significant bilateral neural foraminal stenosis, moderate left and advanced right L5 ganglionic compression. Suspicious for discitis osteomyelitis at the L2-L3 level. My review of the T-Spine CT report is no acute findings. Blood tests and urine tests unremarkable. At this point, diagnoses include: Lumbar spinal stenosis, Osteomyelitis of the lumber spine, and intractable pain. Treatment here included: IVF, Zofran, Diazepam, Dilaudid, and Vancomycin. At 6 AM on 04/21/2025, the care of the patient was transferred to Dr. Barba. Simeon Hart MD Related Data Home Medications ?Medication ?Instructions ?Recorded ?Confirmed folic acid 1 mg tablet 1 mg PO QDAY SUPPLEMENT #0 tabs 10/25/13 07/17/24 hydrocodone 10 mg-acetaminophen 1 tab PO Q6H PRN Pain ##180 04/11/17 07/17/24 325 mg tablet Held on 07/17/24. Instructions: Resume on 07/18/24. levothyroxine 75 mcg tablet 75 mcg PO QDAY ##0 04/13/17 07/17/24 (Synthroid) tiotropium bromide 18 mcg capsule 1 cap inhalation QDAY #0 puffs 08/03/17 07/17/24 with inhalation device (Spiriva with HandiHaler) fentanyl 50 mcg/hr transdermal 50 mcg topical Q72H 06/25/18 07/17/24 patch fluoxetine 40 mg capsule (Prozac) 60 mg PO QDAY 02/28/19 07/17/24 amlodipine 10 mg tablet 5 mg PO QDAY 01/11/20 07/17/24 docusate sodium 100 mg tablet 100 mg PO QDAY 07/17/24 07/17/24 ergocalciferol (vitamin D2) 1,250 1,250 mcg PO QMONTH 07/17/24 07/17/24 mcg (50,000 unit) capsule (Drisdol) lubiprostone 24 mcg capsule 24 mcg PO BID PRN Constipation 07/17/24 07/17/24 Previous Rx's ?Medication ?Instructions ?Recorded hydrocodone 10 mg-acetaminophen 1 tab PO Q6H PRN pain #20 tabs 09/22/24 325 mg tablet Allergies Allergy/AdvReac Type Severity Reaction Status Date / Time Cephalosporins Allergy Severe Rash Verified 04/20/25 18:44 iodine Allergy Severe RASH, HIVES Verified 04/20/25 18:44 levofloxacin Allergy Severe DESTROYS Verified 04/20/25 18:44 FEET TENDONS Penicillins Allergy Severe Rash Verified 04/20/25 18:44 Sulfa (Sulfonamide Allergy Severe Rash Verified 04/20/25 18:44 Antibiotics) cefazolin Allergy Unknown RASH, Verified 04/20/25 18:44 DIFFICULTY BREATHING Review of Systems Review of Systems Systems Reviewed: All systems reviewed, normal except as documented Past Medical History Past Medical History NEUROLOGIC: Positive Neurological Disorders, Transient Ischemic Attacks (TIA) and Peripheral Neuropathy CARDIAC: Positive Cardiac Disorders, Cardiac Arrhythmia, Hypercholesterolemia, Edema, Deep Vein Thrombosis and Hypertension RESPIRATORY: Positive Asthma, Bronchitis and Pneumonia GASTROINTESTINAL: Positive Diverticulitis, Diverticulosis, Obstructive Bowel and Gastroesophageal Reflux Disease GENITOURINARY: Positive Genitourinary Disorders and Renal Disease REPRODUCTIVE: Positive Previous Pregnancies MUSCULOSKELETAL: Positive Musculoskeletal Disorders ENT: Positive Cataracts and Deafness ENDOCRINE: Positive Endocrine Disorders and Hypothyroidism HEMATOLOGIC: Positive Clotting Problems PSYCHO/SOCIAL: Positive Depression and Anxiety OTHER HISTORY: Positive Hospitalization, Falls and Measles Family History FAMILY HISTORY: Positive Family Respiratory Disorders, Family Cardiac Disorders and Family Cancer Surgical History SURGICAL: Positive Pacemaker, Abdominal Surgery, Bowel Surgery, Lumpectomy and Hysterectomy ED Exam Narrative Physical exam: Refer to HPI above Course Quality Measures none Orders Category Date Time Status May Access Port-A-Cath NOW Care 04/20/25 20:00 Ordered Saline [Insert IV] NOW Care 04/20/25 19:[address] lumbar spine wo con Stat Exams 04/20/25 19:[address] thoracic spine wo con Stat Exams 04/20/25 19:10 Completed XR chest 1V portable Stat Exams 04/20/25 21:11 Completed Amylase Stat Lab 04/20/25 20:11 Completed Bilirubin,Direct Stat Lab 04/20/25 20:11 Completed Blood Culture (Lab) Stat Lab 04/20/25 22:02 Received C-Reactive Protein Stat Lab 04/20/25 20:11 Completed CBC Stat Lab 04/20/25 20:11 Completed CMP [Comprehensive Metabolic Panel] Stat Lab 04/20/25 20:11 Completed ESR [Sed Rate (ESR)] Stat Lab 04/20/25 20:11 Completed Lactate (Lactic Acid) Stat Lab 04/20/25 22:02 Completed Lipase Stat Lab 04/20/25 20:11 Completed Magnesium Stat Lab 04/20/25 20:11 Completed PT [Prothrombin Time with INR] Stat Lab 04/20/25 20:11 Completed PTT [Partial Thromboplastin Time] Stat Lab 04/20/25 20:11 Completed Procalcitonin Stat Lab 04/20/25 20:11 Completed UA, C/S IF [Urinalysis, C/S if Indicated] Stat Lab 04/20/25 19:17 Completed Diazepam Inj [Valium Inj] Med 04/20/25 19:11 Discontinued 2.5 mg IVP X1 ONE Diazepam Inj [Valium Inj] Med 04/20/25 23:51 Discontinued 5 mg IVP X1 ONE HYDROmorphone INJ [Dilaudid Inj] Med 04/20/25 20:55 Discontinued 1 mg IVP X1 ONE HYDROmorphone INJ [Dilaudid Inj] Med 04/21/25 00:48 Discontinued 1 mg IVP X1 ONE Ondansetron Inj [Zofran Inj] Med 04/20/25 19:11 Discontinued 4 mg IVP X1 ONE Sodium Chloride 0.9% 1000 ml [Ns] 1,000 ml Med 04/20/25 19:11 Active IV 100 mls/hr Vancomycin Inj 1,000 mg Med 04/20/25 21:09 Discontinued Sodium Chloride 0.9% 500 ml [Ns] 500 ml IV X1 Vital Signs Vital signs: Vital Signs Temperature 98.7 F 04/20/25 18:48 Pulse Rate 91 04/20/25 18:48 Respiratory Rate 18 04/20/25 18:48 Blood Pressure 166/98 H 04/20/25 18:48 Pulse Oximetry (%) 96 04/20/25 18:48 Oxygen Delivery Method Room Air 04/20/25 18:48 Back Pain / Injury MDM Narrative MDM Narrative:: Scribe Attestation: Susi Rosales am scribing for and in the presence of Dr. Hart. Provider Notation: Although this document has been carefully reviewed, there may still be some phonetic and other typographical errors.? These errors are purely grammatical due to imperfections in the software program and should not be construed in any way to? compromise the substance of the patient's medical care during this visit. 74 y/o female with Hx of Anxiety, TIA, Peripheral Neuropathy, DVT, HTN here with severe pain. Has chronic pain. But in the past couple weeks, she reports severe low back pain and burning pain in the legs (L > R). Reports numbness and tingling in the legs. Can't walk anymore. Uncertain about paralysis in the lower extremities. Reports losing control of the bladder and bowels. No other complaints. Patient data External records reviewed:: [facility] previous records (Reviewed prior ED records from . Patient was seen for Chronic pain syndrome.) Clinical information provided by:: patient Social determinants that could affect healthcare access:: none Patient has the following chronic illnesses:: Transient Ischemic Attacks (TIA), Peripheral Neuropathy, Cardiac Arrhythmia, Hypercholesterolemia, Edema, Deep Vein Thrombosis, Hypertension, Asthma, Bronchitis, Diverticulitis, Diverticulosis, Obstructive Bowel, Gastroesophageal Reflux Disease, Renal Disease, Cataracts, Deafness, Hypothyroidism, Depression and Anxiety How is presenting disease/condition affected by chronic disease/condition?: exacerbated by Evaluation data The following diagnostics were reviewed and interpreted by me:: lab results and radiology exam(s) Lab and/or radiology exams considered but not ordered:: None Interpretation Summary: I reviewed all diagnostic test results: My interpretation of the CXR is NAD. My review of the L-Spine CT report is: L5-S1 3 mm and lumbar disc bulge with significant bilateral neural foraminal stenosis, moderate left and advanced right L5 ganglionic compression. Suspicious for discitis osteomyelitis at the L2-L3 level. My review of the T-Spine CT report is no acute findings. Blood tests and urine tests unremarkable. Medications / Prescriptions Medications or Prescriptions considered but not ordered:: None Medication administrations:: Medication Administration History Sodium Chloride (Ns) 1,000 mls @ 100 mls/hr IV .Q10H ONE Stop: 04/21/25 05:10 Last Admin: 04/20/25 20:13 Dose: 100 mls/hr Documented By: BD Discontinued Medications Diazepam (Diazepam Inj 5 Mg/Ml Vial 2 Ml) 2.5 mg IVP X1 ONE Stop: 04/20/25 19:12 Last Admin: 04/20/25 20:13 Dose: 2.5 mg Documented By: BD Diazepam (Diazepam Inj 5 Mg/Ml Vial 2 Ml) 5 mg IVP X1 ONE Stop: 04/20/25 23:52 Last Admin: 04/21/25 00:08 Dose: 5 mg Documented By: BD Hydromorphone HCl (Hydromorphone Inj 2 Mg/Ml Vial) 1 mg IVP X1 ONE Stop: 04/20/25 20:56 Last Admin: 04/20/25 21:32 Dose: 1 mg Documented By: BD Hydromorphone HCl (Hydromorphone Inj 2 Mg/Ml Vial) 1 mg IVP X1 ONE Stop: 04/21/25 00:49 Last Admin: 04/21/25 02:20 Dose: 1 mg Documented By: BD Vancomycin HCl 1,000 mg/ (Sodium Chloride) 500 mls @ 150 mls/hr IV X1 ONE Stop: 04/21/25 00:28 Last Infusion: 04/21/25 01:00 Dose: Infused Documented By: Admin: 04/20/25 21:31 Dose: 150 mls/hr Documented By: BD Ondansetron HCl (Ondansetron Inj 2 Mg/Ml Inj 2 Ml) 4 mg IVP X1 ONE; Protocol Stop: 04/20/25 19:12 Last Admin: 04/20/25 20:13 Dose: 4 mg Documented By: BD Treatment here included: IVF, Zofran, Diazepam, Dilaudid, and Vancomycin. Consultations Consultation(s) initiated? (list below): No Diagnosis Differential diagnosis back pain/injury: lumbar radiculopathy, sciatica, strain of lumbar region, pyelonephritis, thoracic back pain, AAA and discitis Most likely diagnosis given after review of the tests above:: At this point, diagnoses include: Lumbar spinal stenosis, Osteomyelitis of the lumber spine, and intractable pain. Admission Indicated Admission indicated?: not indicated Explain why admission is indicated or not indicated:: Pending MRI. Admission Request Was there a request for admission?: No Disposition Plan Disposition Plan: other (specify) (At 6 AM on 04/21/2025, the care of the patient was transferred to Dr. Barba. ) Discharge Plan Prescriptions/Referrals Prescriptions/Med Rec: No Action folic acid 1 MG tablet 1 mg PO QDAY Qty: 0 hydrocodone-acetaminophen 10-325 mg Tablet 1 tab PO Q6H PRN (Reason: Pain) Qty: 180 levothyroxine [Synthroid] 75 mcg Tablet 75 mcg PO QDAY Qty: 0 tiotropium bromide [Spiriva with HandiHaler] 18 mcg Capsule, W/Inhalation Device 1 cap INHALATION QDAY Qty: 0 fentanyl 50 mcg/hr Patch 72 Hour 50 mcg Topical Q72H amlodipine 10 mg tablet 5 mg PO QDAY fluoxetine [Prozac] 40 mg Capsule 60 mg PO QDAY ergocalciferol (vitamin D2) [Drisdol] 1,250 mcg (50,000 unit) Capsule 1,250 mcg PO QMONTH docusate sodium 100 mg Tablet 100 mg PO QDAY lubiprostone 24 mcg Capsule 24 mcg PO BID PRN (Reason: Constipation) hydrocodone-acetaminophen 10-325 mg tablet 1 tab PO Q6H MDD 4 PRN (Reason: pain) Qty: 20 0RF Referrals: Apoorva Diggs MD [Primary Care Provider] - In 1 week Problem List Clinical Impression: Intractable pain, Lumbar spinal stenosis, Osteomyelitis of lumbar spine Patient/Caregiver Discharge Instructions Print Language: Congolese
--- NOTE | 2025-04-20 19:10 | XR_ITS ---
Examination: CT thoracic spine. Without contrast. 2-D sagittal reconstructions. 2-D coronal reconstructions. 3-D reconstructions. Date and time of exam: April 20, 2025 1928 hours INDICATIONS: Severe back pain radiating down the left leg CTDI: vol (mGy):19 DLP: (mGycm):627 Technique: Multiple 1.25 mm axial sections of the thoracic spine intravenous contrast have been obtained. 2-D sagittal and coronal reconstructions have been obtained. 3-D reconstructions have been obtained. Low dose protocols were performed. One or more of the following dose reduction techniques were used; automated exposure control, adjustment of the mA and/or KV according to patient size, use of iterative reconstruction technique. Findings: Severe osteopenia No thoracic vertebral body compression fracture Thoracic pedicles laminae transverse and posterior spinous processes intact Mild diffuse thoracic disc narrowing Axial images demonstrate no focal thoracic disc protrusion IMPRESSION: Mild diffuse thoracic degenerative disc disease No focal thoracic disc protrusion
--- NOTE | 2025-04-20 19:11 | XR_ITS ---
Examination: CT lumbar spine, without contrast. 2-D sagittal reconstructions. 2-D coronal reconstructions. 3-D reconstructions. Date and time of exam:Reviewed hours INDICATIONS: Low back pain with left foot drop beginning 2 weeks ago CTDI: vol (mGy):19 DLP: (mGycm):607 Technique: Multiple 1.25 mm axial sections of the lumbar spine without intravenous contrast have been obtained. 2-D sagittal and coronal reconstructions have been obtained. 3-D reconstructions have been obtained. Low dose protocols were performed. One or more of the following dose reduction techniques were used; automated exposure control, adjustment of the mA and/or KV according to patient size, use of iterative reconstruction technique. Findings: Prominent osteopenia Significant disc narrowing L2-L3 with cortical erosions involving contiguous endplates L2-L3 no disc protrusion L1-L2 no disc protrusion with cortical erosions contiguous margins Lumbar pedicles lamina transverse and posterior spinous processes intact L5-S1 3 mm central lumbar disc bulge with significant bilateral neural foraminal stenosis, moderate left and advanced right L5 ganglionic compression L4-L5 no disc protrusion L3-L4 no disc protrusion L2-L3 no disc protrusion IMPRESSION: L5-S1 3 mm and lumbar disc bulge with significant bilateral neural foraminal stenosis, moderate left and advanced right L5 ganglionic compression Suspicious for discitis osteomyelitis at the L2-L3 level
--- NOTE | 2025-04-20 19:16 | PC.NURSE ---
pt did not need in and out was able to urinate on own
[2025-04-20 19:27] LABS: Collection Type, Urine Clean Catch
[2025-04-20 19:38] LABS: Bilirubin,Urine Negative (Negative); Blood,Urine Negative (Negative); Clarity,Urine Clear (Clear/Hazy); Color,Urine Colorless (Lt Yel-Yel); Culture Indicated,Urine Not Indicated; Glucose, Urine Negative (Negative); Ketones,Urine Negative (Negative); Leukocyte Esterase,Urine Negative (Negative); Nitrite,Urine Negative (Negative); PH,Urine 7.0 (5.0-7.0); Protein,Urine 1+ (Neg - Trace); RBC,Urine < 1 /hpf (0-3); Specific Gravity,Urine 1.010 (1.001-1.035); Squamous Epithelial Cell,Urine 1 /hpf (0-5); Urobilinogen,Urine Negative mg/dL (0.0-1.0); WBC,Urine < 1 /hpf (0-5)
--- NOTE | 2025-04-20 19:51 | PC.NURSE ---
pt not wanting iv wants to access port a cath notified
[2025-04-20] MEDS: ONDANSETRON INJ 2 MG/ML INJ 2 ML 4 MG IVP (20:13)
[2025-04-20] MEDS: DIAZEPAM INJ 5 MG/ML VIAL 2 ML 2.5 MG IVP (20:13)
[2025-04-20] MEDS: SODIUM CHLORIDE 0.9% 1000 ML 1,000 ML 100 ML IV (20:13)
[2025-04-20 20:34] LABS: Basophils # (Auto) 0.1 Thou/mm3 (0.0-0.2); Basophils % (Auto) 1 % (0-2.5); Eosinophils # (Auto) 0.1 Thou/mm3 (0.0-0.5); Eosinophils % (Auto) 1 % (0-10); Hematocrit 38.8 % (36.0-46.0); Hemoglobin 13.0 g/dL (12.0-16.0); Immature Granulocytes Auto 0.02 Thou/mm3 (0.00-0.00); Lymphocytes # (Auto) 2.5 Thou/mm3 (1.0-4.8); Lymphocytes % (Auto) 27 % (10-50); Mean Corpuscular HGB Conc 33.5 g/dl (31.0-37.0); Mean Corpuscular Hemoglobin 31.9 pg (25.0-35.0); Mean Corpuscular Volume 95 fL (80-100); Monocytes # (Auto) 0.8 Thou/mm3 (0.0-0.8); Monocytes % (Auto) 8 % (0-12); Neutrophils # (Auto) 5.7 Thou/mm3 (1.8-7.7); Neutrophils % (Auto) 62 % (37-80); Nucleated Red Blood Cell # 0.00 Thou/mm3 (0.00-0.00); Nucleated Red Blood Cell % 0 /100 WBC (0); Platelet Count 246 Thou/mm3 (140-440); RDW Standard Deviation 45.0 fL (36.4-46.3); Red Blood Count 4.07 Miln/mm3 (4.00-5.20); White Blood Count 9.1 Thou/mm3 (3.6-11.0)
[2025-04-20 20:55] LABS: INR 1.0 (0.9-1.3); Partial Thromboplastin Time 29.6 Seconds (22.0-36.0); Prothrombin Time 10.5 Seconds (9.0-12.2)
[2025-04-20 21:08] LABS: Alanine Aminotransferase 8 U/L (10-49); Albumin, Serum 4.5 gm/dL (3.4-4.8); Anion Gap 7 (7-16); Aspartate Amino Transferase 26 U/L (0-34); BUN/Creatinine Ratio 15 Ratio (12-20); Bilirubin,Direct 0.1 mg/dL (0.0-0.3); Bilirubin,Total 0.4 mg/dL (0.3-1.2); Blood Urea Nitrogen 18 mg/dL (9-23); Calcium 9.6 mg/dL (8.3-10.6); Calcium (Corrected) 9.6 mg/dL (8.5-10.1); Carbon Dioxide 26.7 mMol/L (20.0-31.0); Chloride 107 mMol/L (98-107); Creatinine (Component) 1.2 mg/dL (0.6-1.3); Estimated Creatinine Clearance 33.4 mL/min (>60); Globulin 2.8 gm/dL (2.3-3.5); Glucose 100 mg/dL (74-106); Magnesium 2.4 mg/dL (1.6-2.6); Osmolality,Calculated 283 (275-295); Potassium 4.8 mMol/L (3.4-5.1); Sodium 141 mMol/L (136-145); Total Protein 7.3 gm/dL (5.7-8.2); eGFR 47 See Note
[2025-04-20 21:09] LABS: Albumin/Globulin Ratio 1.6 (1.2-2.2); Alkaline Phosphatase 95 U/L (46-116); Lipase 58 U/L (12-53)
--- NOTE | 2025-04-20 21:11 | XR_ITS ---
Examination: AP chest single view Technique one AP portable upright chest single view April 20, 2025 2118 hours INDICATIONS: Shortness of breath today. FINDINGS: Normal heart size Minor atelectasis left base No pneumonia or pulmonary edema Cardiac satisfactory position Right subclavian Port-A-Cath tip satisfactory position IMPRESSION: No pneumonia or pulmonary edema
[2025-04-20 21:14] VITALS: BP 171/101; PULSE 67; RESP 19; TEMP 37.1; O2SAT 100
[2025-04-20 21:29] LABS: Sed Rate (ESR) 20 mm/hr (0-30)
[2025-04-20] MEDS: Vancomycin Inj 1,000 MG in SODIUM CHLORIDE 0.9% 500 ML 500 ML 150 MG IV (21:31)
[2025-04-20] MEDS: HYDROmorphone INJ 2 MG/ML VIAL 1 MG IVP (21:32)
[2025-04-20 22:14] LABS: Lactate (Lactic Acid) 1.1 mMol/L (0.4-2.0)
[2025-04-20 22:16] LABS: Procalcitonin 0.09 ng/ml (0.0-0.49)
--- NOTE | 2025-04-20 23:45 | PC.NURSE ---
PT WAS REQUESTING PAIN MEDICATION AND ANXIETY MEDICATION AND IF SHE CAN HAVE IT SCHEDULED AND HOW OFTEN SHE CAN GET IT ADVISED DR. LIZARRAGA PT IS REQUESTING MEDICATION
[2025-04-20 23:50] LABS: Amylase 100 U/L (30-118); C-Reactive Protein < 0.5 mg/dL (0.0-0.9)
[2025-04-21] VITALS (10 sets, daily range): BP systolic 128–185; BP diastolic 59–94; PULSE 62–107; RESP 16–20; TEMP 36.7–36.9; O2SAT 93–100
[2025-04-21] MEDS: DIAZEPAM INJ 5 MG/ML VIAL 2 ML IVP (00:08)
--- NOTE | 2025-04-21 00:30 | PC.NURSE ---
PATIENT SCREAMING AND YELLING FROM ROOM, I ATTEMPTED TO GO INTO THE ROOM 4 DIFFERENT TIMES WHILE PRIMARY NURSE WAS IN ANOTHER ROOM DOING CONSCIOUS SEDATION. PT REFUSED TO TALK TO ME OR ANSWER MY QUESTIONS. I EXPLAINED HER THAT SHE NEED TO TELL ME WHATS GOING ON SO I CAN HELP HER. PT DID NOT GIVE ANY VERBAL RESPONSE OTHER THAN YELLING AND MOANING. PRIMARY RN MADE AWARE
[2025-04-21] MEDS: HYDROmorphone INJ 2 MG/ML VIAL 1 MG IVP ×2 (02:20→15:34)
--- NOTE | 2025-04-21 02:25 | PC.NURSE ---
WENT IN TO CHECK PT SHE WAS YELLING OUT THE DOOR, SHE STATED THAT SHE WAS YELLING EARLIER AND NO ONE CAME IN TO CHECK ON HER ADVISED THAT NURSES CAME IN TO CHECK ON HER SHE WAS CRYING AND YET SHE REFUSED TO COMMUNICATE WITH OTHER NURSE WHEN ASKED WHAT SHE WAS NEEDING. AT THIS TIME PT WAS REQUESTING PAIN MEDICATION ADVISED THAT I WILL GET HER PAIN MEDICATION.
--- NOTE | 2025-04-21 04:04 | PC.NURSE ---
WHILE ON LUNCH PT ASKED RN FOR PAIN MEDS ASIA ADVISED PT THAT PAIN MEDS WERE GIVEN PRIOR TO ME GOING TO LUNCH, PT CONTINUED TO STATE THAT WAS NOT GIVEN. I WENT IN TO CHECK PT ADVISED THAT PAIN MEDICATIONS WERE GIVEN SHE STATED YOU WENT TO GET THEM BUT DID NOT GIVEN THEM ADVISED THAT I GAVE THEM PRIOR TO LUNCH, SHE CONTINUED TO ASK FOR THE MEDICATION ADVISED THAT IT WAS GIVEN IN PORT A CATH PRIOR TO LUNCH.
[2025-04-21] MEDS: HYDROmorphone INJ 2 MG/ML VIAL IVP ×2 (05:04→12:06)
--- NOTE | 2025-04-21 05:10 | PC.NURSE ---
GAVE PT PAIN MEDICATION WITH ALEX OLMSTEAD PRESENT AT BEDSIDE
--- NOTE | 2025-04-21 07:55 | PC.NURSE ---
Pt awake/alert, denies any pain at this time, vss on tele. Called MRI at this time, they will come get pt for img.
--- NOTE | 2025-04-21 08:43 | PC.NURSE ---
COPY OF PACEMAKER CARD WAS GIVEN TO MERI IN MRI SO HE CAN GET CLEARANCE FROM DR DURAN TO DO MRI.
--- NOTE | 2025-04-21 10:19 | PC.CC ---
Addendum entered by Anna Adames RN 04/21/25 17:52: Connected Dr. Barba to [facility], made aware by Charge Nurse Charlee that transfer is no longer needed and is cancelled Addendum entered by Anna Adames RN 04/21/25 17:00: [facility] has asked Dr. Disla to preform more test and give results will wait for call back Addendum entered by Anna Adames RN 04/21/25 15:53: Rossana from [facility] called back to speak to Dr. Disla Addendum entered by Anna Adames RN 04/21/25 15:21: Spoke to Genoveva at [facility] she states Dr. Davila declined patient due to needing a higher level of care. Addendum entered by Anna Adames RN 04/21/25 15:13: Spoke to Rossana at [facility] transfer center, chart faxed, images shared, call transferred to Dr. Disla Addendum entered by Anna Adames RN 04/21/25 15:05: Spoke to ER charge nurse who states Lori said patient can be seen outpatient, Dr. Disla still wants to transfer patient and said he did nt talk to [facility], called [facility] and left Addendum entered by Anna Adames RN 04/21/25 13:27: Angela from [facility] called back and asked to connect with the ER doctor so he could talk to Neurosurgery Addendum entered by Anna Adames RN 04/21/25 12:25: Genoveva called back from [facility] and is speaking to Dr. Hart Addendum entered by Anna Adames RN 04/21/25 11:54: Spoke to Genoveva at [facility], chart faxed will wait for call back Addendum entered by Anna Adames RN 04/21/25 11:51: [id number] called back at this time and said they have no beds available and patient will be put on wait list Addendum entered by Anna Adames RN 04/21/25 11:13: Clinicals given to Angela at this time Original Note: 1012- Spoke to Henry at [facility], face sheet faxed will wait for call back 1000- Dr. Hart asked for patient to be transferred for HLOC for Neurosurgery for Dx: Lumbar spinal stenosis with foot drop and lumbar osteomyelitis, patient unable to get MRI due to pacemaker.
--- NOTE | 2025-04-21 11:26 | EDNOTE_ITS ---
Emergency Room Addendum <Tameka Wallace - Last Filed: 04/21/25 12:05> Addendum Narrative: I took over the care on 04/05/2025.? See previous notes for complete H & P and ED course. I reviewed all diagnostic test results: My interpretation of the CXR is NAD. My review of the L-Spine CT report is: L5-S1 3 mm and lumbar disc bulge with significant bilateral neural foraminal stenosis, moderate left and advanced right L5 ganglionic compression. Suspicious for discitis osteomyelitis at the L2-L3 level. My review of the T-Spine CT report is no acute findings. Blood tests and urine tests unremarkable. At this point, diagnoses include Lumbar spinal stenosis, Osteomyelitis of the lumber spine, and intractable pain. Treatment here included: IVF, Zofran, Diazepam, Dilaudid, and Vancomycin. Significant improvement Patient signed out to Dr. Barba at 1230 hours, pending MRI. Simeon Hart MD <Simeon Hart MD - Last Filed: 04/21/25 12:14> Addendum Narrative: I reviewed all diagnostic test results: My interpretation of the CXR is NAD. My review of the L-Spine CT report is: L5-S1 3 mm and lumbar disc bulge with si gnificant bilateral neural foraminal stenosis, moderate left and advanced right L5 ganglionic compression. Suspicious for discitis osteomyelitis at the L2-L3 level. My review of the T-Spine CT report is no acute findings. Blood tests and urine tests unremarkable. Diagnoses include Lumbar spinal stenosis, Osteomyelitis of the lumber spine, and intractable pain. Treatment here included: IVF, Zofran, Diazepam, Dilaudid, and Vancomycin. Patient needs MRI but her pacemaker not compatible with our MRI. Our transfer nurse is looking for a facility for the patient. At 12:30 PM, the care of the patient was transferred to Dr. Barba. Simeon Hart MD
--- NOTE | 2025-04-21 12:17 | PC.NURSE ---
PT WAS COMPLAINING OF PAIN, THIS RN REQUEST PAIN MED FROM MD, GAVE VERBAL FOR 2MG OF DILAUDID. PT MEDICATED, PT REPORTS HER FENTANYL PATCH FELL OFF, THIS RN LOOKED FOR IT, TURNED PT LOOKED UNDER HER NO PATCH FOUND.
--- NOTE | 2025-04-21 12:24 | EDNOTE_ITS ---
Emergency Room Addendum <Tameka Wallace - Last Filed: 04/21/25 12:24> Addendum Narrative: 1230: Care assumed from Dr. Hart, the previous shift emergency physician. Past medical, surgical, social and family history reviewed. Vitals and home medications reviewed. I will assume the care of the patient at this time. Please refer to the emergency department record for history and examination from initial visit.? Physical exam by me shows patient under no acute distress at this time. <Brian Barba MD - Last Filed: 04/21/25 13:44> Addendum Narrative: 1230: Care assumed from Dr. Hart, the previous shift emergency physician. Past medical, surgical, social and family history reviewed. Vitals and home medications reviewed. I will assume the care of the patient at this time. Please refer to the emergency department record for history and examination from initial visit.? Physical exam by me shows patient under no acute distress at this time. DW patient. Her back symptoms are chronic. She has been referred to neurosurgery as out patient by her PCP. Neurosurgeon at [facility] stated that this condition does not require immadiate surgical intervention. Patient states her pacemaker is compatible with MRI. In that case prior arrangements should be planned as out patient. At this time the patient is stable for DC.
[2025-04-21 12:49] LABS: Basophils # (Auto) 0.1 Thou/mm3 (0.0-0.2); Basophils % (Auto) 1 % (0-2.5); Eosinophils # (Auto) 0.2 Thou/mm3 (0.0-0.5); Eosinophils % (Auto) 3 % (0-10); Hematocrit 35.9 % (36.0-46.0); Hemoglobin 12.1 g/dL (12.0-16.0); Immature Granulocytes Auto 0.01 Thou/mm3 (0.00-0.00); Lymphocytes # (Auto) 2.2 Thou/mm3 (1.0-4.8); Lymphocytes % (Auto) 32 % (10-50); Mean Corpuscular HGB Conc 33.7 g/dl (31.0-37.0); Mean Corpuscular Hemoglobin 32.6 pg (25.0-35.0); Mean Corpuscular Volume 97 fL (80-100); Monocytes # (Auto) 0.7 Thou/mm3 (0.0-0.8); Monocytes % (Auto) 11 % (0-12); Neutrophils # (Auto) 3.8 Thou/mm3 (1.8-7.7); Neutrophils % (Auto) 54 % (37-80); Nucleated Red Blood Cell # 0.00 Thou/mm3 (0.00-0.00); Nucleated Red Blood Cell % 0 /100 WBC (0); Platelet Count 175 Thou/mm3 (140-440); RDW Standard Deviation 46.8 fL (36.4-46.3); Red Blood Count 3.71 Miln/mm3 (4.00-5.20); White Blood Count 7.0 Thou/mm3 (3.6-11.0)
[2025-04-21 13:22] LABS: Alanine Aminotransferase 10 U/L (10-49); Albumin, Serum 4.0 gm/dL (3.4-4.8); Albumin/Globulin Ratio 1.7 (1.2-2.2); Alkaline Phosphatase 80 U/L (46-116); Anion Gap 11 (7-16); Aspartate Amino Transferase 25 U/L (0-34); BUN/Creatinine Ratio 13 Ratio (12-20); Bilirubin,Total 0.5 mg/dL (0.3-1.2); Blood Urea Nitrogen 15 mg/dL (9-23); Calcium 9.0 mg/dL (8.3-10.6); Calcium (Corrected) 9.0 mg/dL (8.5-10.1); Carbon Dioxide 25.6 mMol/L (20.0-31.0); Chloride 109 mMol/L (98-107); Creatinine (Component) 1.2 mg/dL (0.6-1.3); Estimated Creatinine Clearance 33.4 mL/min (>60); Globulin 2.4 gm/dL (2.3-3.5); Glucose 88 mg/dL (74-106); Osmolality,Calculated 290 (275-295); Potassium 4.3 mMol/L (3.4-5.1); Sodium 146 mMol/L (136-145); Total Protein 6.4 gm/dL (5.7-8.2); eGFR 47 See Note
--- NOTE | 2025-04-21 17:22 | PC.NURSE ---
MD REQUESTED PRE AND POST VOID BLADDER SCAN, OF RIGHT NOW PT DOES NOT FEEL THE URGE TO PEE, PROVIDER WANTED ONE NOW, PT HAS 57ML IN BLADDER CURRENTLY AT THIS TIME, MD UPDATED.
--- NOTE | 2025-04-21 18:22 | PC.NURSE ---
THIS RN WENT IN TO DISCHARGE PT, PT REQUEST FENTANYL PATCH TO BE APPLIED PRIOR TO DISCHARGE, THIS RN CALLED PHARMACY, PHARMACY STATED IS IS AGAINST POLICY TO GIVE IT PRIOR TO DISCHARGE, ONLY IF SHE WERE TO BE ADMITTED WOULD THEY BE ABLE TO DISPENSE IT. PT UPSET AND REFUSING TO LEAVE, STATES YOU HAVE TO ADMIT ME THEN THIS RN TOLD , WENT AND SPOKE TO PT WELL AND TOLD HER HE CANNOT ADMIT HER AT THIS TIME, AND HE CANNOT GIVE HER THE PATCH, IT IS PROTOCOL. PT CONTINUES TO REFUSE TO DISCHARGE. AGRICULTURAL ADVISER MADE AWARE, REPORTS PT CAN HAVE A FEW MINUTES TO PROCESS SHE IS BEING DISCHARGED. THIS RN ASKED MD FOR HEP TO DE-ACCESS PORT, PROVIDER TO PUT IN NEW ORDER
--- NOTE | 2025-04-21 18:40 | PC.NURSE ---
PT CRYING LOUDLY, BECAUSE SHE CANNOT GET HER FENTANYL PATCH.
--- NOTE | 2025-04-21 19:38 | PC.NURSE ---
called house sup fentanyl patch
--- NOTE | 2025-04-21 19:42 | PC.NURSE ---
called pharmacy to verify use of heparin advised it was for her port a cath
[2025-04-21] MEDS: HEPARIN SOD LOCK SYR 100 UNIT/ML 500 UNIT IV (19:45)
[2025-04-21] MEDS: fentaNYL 25 mCg TRANSDERMAL PATCH TOP (20:38)
--- NOTE | 2025-04-21 21:49 | PC.NURSE ---
PT LEFT NORCO BOTTLE IN ROOM CALLED HE WILL COME TO GET MEDICATION
== END 2025-04-21 20:43 | disposition home or self-care (01) ==
PROVIDERS: Emergency Medicine; Emergency Provider Emergency Medicine; PCP Family Medicine
DX: M48.061 Spinal stenosis, lumbar region without neurogenic claudication (principal); M46.26 Osteomyelitis of vertebra, lumbar region; M51.372 Other intervertebral disc degeneration, lumbosacral region with discogenic back pain and lower extremity pain; G95.29 Other cord compression; R06.02 Shortness of breath; M54.6 Pain in thoracic spine
CPT/HCPCS: 36415; 71045; 72128; 72131; 80053; 81001; 82150; 82248; 83605; 83690; 83735; 84145; 85025; 85610; 85652; 85730; 86140; 87040; 96361; 96365; 96366; 96375; 96376; 99285; J1171; J1642; J2405; J3360; J3370; J7030; J7999

== ENCOUNTER 2025-04-25 13:26 | Inpatient (IN) | payer MEDICARE, OTHER, SELFPAY ==
[2025-04-25 14:09] VITALS: PULSE 70; RESP 18; O2SAT 98; BMI 24.1
[2025-04-25 14:13] VITALS: BP 189/98; PULSE 69; RESP 18; TEMP 37; O2SAT 99
--- NOTE | 2025-04-25 14:13 | EKG_ITS ---
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: : 1950 Requested By: ED Temporary Provider Order Number: [id number] Reading MD: ED Temporary Provider Measurements Intervals [place] Rate: 66 P: 136 IA: 178 QRS: -48 QRSD: 128 T: 9 QT: 456 QTc: 479 Interpretive Statements ELECTRONIC ATRIAL PACEMAKER LEFT ANTERIOR FASCICULAR BLOCK [QRS AXIS <= -45, QR IN I, RS IN II] MODERATE VOLTAGE CRITERIA FOR LVH, CONSIDER NORMAL VARIANT [MEETS CRITERIA IN ONE OF: R(aVL), S(V1), R(V5), R(V5/V6)+S(V1)] Compared to ECG 09/08/2024 17:18:40 Left anterior fascicular block now present Intraventricular conduction delay no longer present Myocardial infarct finding no longer present /store/S0/[id number].pdf
--- NOTE | 2025-04-25 14:53 | EKG_ITS ---
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1950 Requested By: Gideon Trimble Order Number: [id number] Reading MD: Gideon Trimble Measurements Intervals [place] Rate: 68 P: 152 NE: 175 QRS: -50 QRSD: 129 T: 23 QT: 453 QTc: 482 Interpretive Statements ELECTRONIC ATRIAL PACEMAKER LEFT ANTERIOR FASCICULAR BLOCK [QRS AXIS <= -45, QR IN I, RS IN II] MODERATE VOLTAGE CRITERIA FOR LVH, CONSIDER NORMAL VARIANT [MEETS CRITERIA IN ONE OF: R(aVL), S(V1), R(V5), R(V5/V6)+S(V1)] POSSIBLE LATERAL MYOCARDIAL INFARCTION , OF INDETERMINATE AGE [30 ms Q WAVE IN I/aVL/V5/V6] Compared to ECG 09/08/2024 17:18:40 Left anterior fascicular block now present Intraventricular conduction delay no longer present Myocardial infarct finding still present /store/S0/[id number].pdf
--- NOTE | 2025-04-25 14:55 | PD.EDABDPN ---
ED Abdominal Pain RME/HPI General Chief Complaint: Abdominal Pain Stated complaint: ABDOMINAL PAIN Time seen by provider: 04/25/25 14:30 Arrival date/time: 04/25/25 13:26 This is a case of 74-year-old female with Hx of Anxiety, TIA, Peripheral Neuropathy, DVT, HTN pacemaker 3 abdominal surgeries secondary to diverticulitis and small bowel obstruction came in in the emergency room due to abdominal pain for 2 days with nausea vomiting denies any constipation diarrhea or blood in stool denies any chest pain no shortness of breath persistence of the symptoms this patient decided to start consult here in the emergency room Limitations: no limitations Related Data Home Medications ?Medication ?Instructions ?Recorded ?Confirmed folic acid 1 mg tablet 1 mg PO QDAY SUPPLEMENT #0 tabs 10/25/13 07/17/24 hydrocodone 10 mg-acetaminophen 1 tab PO Q6H PRN Pain ##180 04/11/17 07/17/24 325 mg tablet Held on 07/17/24. Instructions: Resume on 07/18/24. levothyroxine 75 mcg tablet 75 mcg PO QDAY ##0 04/13/17 07/17/24 (Synthroid) tiotropium bromide 18 mcg capsule 1 cap inhalation QDAY #0 puffs 08/03/17 07/17/24 with inhalation device (Spiriva with HandiHaler) fentanyl 50 mcg/hr transdermal 50 mcg topical Q72H 06/25/18 07/17/24 patch fluoxetine 40 mg capsule (Prozac) 60 mg PO QDAY 02/28/19 07/17/24 amlodipine 10 mg tablet 5 mg PO QDAY 01/11/20 07/17/24 docusate sodium 100 mg tablet 100 mg PO QDAY 07/17/24 07/17/24 ergocalciferol (vitamin D2) 1,250 1,250 mcg PO QMONTH 07/17/24 07/17/24 mcg (50,000 unit) capsule (Drisdol) lubiprostone 24 mcg capsule 24 mcg PO BID PRN Constipation 07/17/24 07/17/24 Previous Rx's ?Medication ?Instructions ?Recorded hydrocodone 10 mg-acetaminophen 1 tab PO Q6H PRN pain #20 tabs 09/22/24 325 mg tablet clindamycin HCl 300 mg capsule 300 mg PO Q6H #30 caps 04/21/25 Allergies Allergy/AdvReac Type Severity Reaction Status Date / Time Cephalosporins Allergy Severe Rash Verified 04/20/25 18:44 iodine Allergy Severe RASH, HIVES Verified 04/20/25 18:44 levofloxacin Allergy Severe DESTROYS Verified 04/20/25 18:44 FEET TENDONS Penicillins Allergy Severe Rash Verified 04/20/25 18:44 Sulfa (Sulfonamide Allergy Severe Rash Verified 04/20/25 18:44 Antibiotics) cefazolin Allergy Unknown RASH, Verified 04/20/25 18:44 DIFFICULTY BREATHING Review of Systems Review of Systems Systems Reviewed: All systems reviewed, normal except as documented Constitutional Constitutional: Reports system reviewed and no additional complaints, except as documented, Reports as per HPI, Denies anorexia, Denies body ache(s), Denies chills and Denies fever(s) ENT Ears, Nose, Mouth, and Throat: Denies dysphagia and Denies odynophagia Cardiovascular Cardiovascular: Reports system reviewed and no additional complaints, except as documented, Reports as per HPI, Denies chest pain and Denies dyspnea Respiratory Respiratory: Reports system reviewed and no additional complaints, except as documented, Reports as per HPI and Denies dyspnea Gastrointestinal Gastrointestinal: Reports system reviewed and no additional complaints, except as documented, Reports as per HPI, Reports abdominal pain, Denies belching, Denies bloating, Denies change in bowel habits, Denies change in stool character, Denies coffee ground emesis, Denies constipation, Denies cramping, Denies diarrhea, Denies dyspepsia, Denies dysphagia, Denies early satiety, Denies excessive flatus, Denies fecal incontinence, Denies heartburn, Denies hematemesis, Denies hematochezia, Denies loose stools, Denies melena, Reports nausea, Denies odynophagia, Denies tenesmus and Reports vomiting Genitourinary Genitourinary: Reports system reviewed and no additional complaints, except as documented and Denies dysuria Musculoskeletal Musculoskeletal: Reports system reviewed and no additional complaints, except as documented and Reports as per HPI Neurologic Neurologic: Reports as per HPI Past Medical History Past Medical History NEUROLOGIC: Positive Neurological Disorders, Transient Ischemic Attacks (TIA) and Peripheral Neuropathy; Negative Seizures CARDIAC: Positive Cardiac Disorders, Cardiac Arrhythmia, Hypercholesterolemia, Edema, Deep Vein Thrombosis and Hypertension; Negative Congestive Heart Failure RESPIRATORY: Positive Asthma, Bronchitis and Pneumonia; Negative Chronic Obstructive Pulmonary Disease (COPD) GASTROINTESTINAL: Positive Gastrointestinal Disorders, Diverticulitis, Diverticulosis, Obstructive Bowel and Gastroesophageal Reflux Disease GENITOURINARY: Positive Genitourinary Disorders and Renal Disease REPRODUCTIVE: Positive Previous Pregnancies MUSCULOSKELETAL: Positive Musculoskeletal Disorders ENT: Positive Cataracts and Deafness ENDOCRINE: Positive Endocrine Disorders and Hypothyroidism; Negative Diabetes Mellitus Type 1 or Diabetes Mellitus Type 2 HEMATOLOGIC: Positive Clotting Problems; Negative Blood Disorders or Sickle Cell Disease PSYCHO/SOCIAL: Positive Depression and Anxiety OTHER HISTORY: Positive Hospitalization, Falls and Measles; Negative Shingles, Blood Transfusions, Anesthesia Reactions or Cancer Family History FAMILY HISTORY: Positive Family Respiratory Disorders, Family Cardiac Disorders and Family Cancer Surgical History SURGICAL: Positive Pacemaker, Abdominal Surgery, Bowel Surgery, Lumpectomy and Hysterectomy Social History SMOKING STATUS: Unknown if ever smoked SUBSTANCE USE: does not use ED Exam General Limitations: Present no limitations General appearance: Present alert, in no apparent distress and other (Patient is awake alert oriented not in distress nontoxic looking well-hydrated well nourished) Head Head exam: Present atraumatic and normocephalic Eye Eye exam: Present normal appearance, PERRL and EOMI ENT ENT exam: Present normal exam, normal oropharynx and mucous membranes moist Neck Neck exam: Present normal inspection, full ROM and trachea midline; Absent tenderness, meningismus, lymphadenopathy or thyromegaly Chest Chest inspection: Present normal inspection and symmetric chest wall rise Respiratory Respiratory exam: Present normal lung sounds bilaterally; Absent respiratory distress, wheezes, stridor, accessory muscle use or prolonged expiratory phase Cardiovascular Cardiovascular exam: Present regular rate, normal rhythm and normal heart sounds; Absent bradycardia, tachycardia, irregular rhythm, systolic murmur or diastolic murmur Abdominal Exam Abdominal exam: Present soft, tenderness (Mild tenderness periumbilical area and epigastric area patient have a surgical scar midline of the abdomen no CVA tenderness) and normal bowel sounds; Absent distention, guarding, rebound, rigidity, diminished bowel sounds, hyperactive bowel sounds, hypoactive bowel sounds, organomegaly, psoas sign, obturator sign, Hernandez's sign, Rovsing's sign, tenderness at McBurney's Point or hernia Extremities Exam Extremities exam: Present normal inspection and full ROM Back Exam Back exam: Present normal inspection and full ROM Neurological Exam Neurological exam: Present alert, oriented X3, CN II-XII intact, normal gait and reflexes normal; Absent motor sensory deficit Psychiatric Psychiatric exam: Present normal affect and normal mood Skin Skin exam: Present warm, dry, intact and normal color Course Quality Measures none Orders Category Date Time Status COVID-19 Screening Questionnaire NOW Care 04/25/25 19:[address] Screening NOW Care 04/25/25 14:53 Active Decision to Admit X1 Care 04/25/25 19:27 Active EKG (ED ONLY) *Do not use* NOW Care 04/25/25 14:13 Completed EKG (ED ONLY) *Do not use* NOW Care 04/25/25 14:53 Completed Consult to Cardiology Stat Cons 04/25/25 19:[address] abdomen pelvis wo con Stat Exams 04/25/25 16:51 Completed EKG (ED Only) Stat Exams 04/25/25 14:13 Draft EKG (ED Only) Stat Exams 04/25/25 14:53 Ordered US gall bladder Stat Exams 04/25/25 19:31 Ordered Amylase Stat Lab 04/25/25 15:08 Completed BNP [B-Type Natriuretic Peptide] Stat Lab 04/25/25 17:45 Completed CBC Stat Lab 04/25/25 15:08 Completed Comprehensive Metabolic Panel Stat Lab 04/25/25 15:08 Completed Lactic Acid [Lactate (Lactic Acid)] Stat Lab 04/25/25 15:08 Completed Lactic Acid, 3 HR Stat Lab 04/25/25 18:40 Completed Lipase Stat Lab 04/25/25 15:08 Completed Troponin I Routine Lab 04/25/25 17:45 Completed Troponin I Stat Lab 04/25/25 15:08 Completed Urinalysis Stat Lab 04/25/25 15:37 Completed Aspirin Med 04/25/25 15:54 Discontinued 325 mg PO X1 ONE Morphine Inj Med 04/25/25 17:30 Active 2 mg IVP Q30M PRN Morphine Inj Med 04/25/25 14:53 Discontinued 2 mg IVP X1 ONE Ondansetron Inj [Zofran Inj] Med 04/25/25 14:53 Discontinued 4 mg IVP X1 ONE Pantoprazole Inj [Protonix Inj] Med 04/26/25 09:00 Active 40 mg IVP QDAY Sodium Chloride 0.9% 1000 ml [Ns] 1,000 ml Med 04/25/25 14:54 Discontinued IV 999 mls/hr Vital Signs Vital signs: Vital Signs Temperature 98.6 F 04/25/25 14:13 Pulse Rate 69 04/25/25 14:13 Respiratory Rate 18 04/25/25 14:13 Blood Pressure 189/98 H 04/25/25 14:13 Pulse Oximetry (%) 99 04/25/25 14:13 Oxygen Delivery Method Room Air 04/25/25 14:13 Patient is afebrile not tachycardic not tachypneic patient blood pressure is 189/98 oxygen saturation is 99% in room air Abdominal Pain MDM MDM Narrative MDM Narrative:: This is a case of 74-year-old female with Hx of Anxiety, TIA, Peripheral Neuropathy, DVT, HTN pacemaker 3 abdominal surgeries secondary to diverticulitis and small bowel obstruction came in in the emergency room due to abdominal pain for 2 days with nausea vomiting denies any constipation diarrhea or blood in stool denies any chest pain no shortness of breath persistence of the symptoms this patient decided to start consult here in the emergency room physical examination patient is awake alert oriented not in distress nontoxic looking vital signs stable except blood pressure noted to be 189/89 not tachycardic not tachypneic not hypoxic and afebrile lungs sound is clear no crackles no rales no retraction no stridor heart normal rate regular rhythm no murmur abdomen mild tenderness in the epigastric area periumbilical area no guarding no rebound no rigidity negative psoas negative straight or negative Rovsing's negative McBurney's negative Hernandez sign negative CVA tenderness there is a scar midline on the abdomen secondary to the abdominal surgery the rest of the physical examination and neurological exam is normal and unremarkable initial impression was gastritis test patient was given Zofran and Pepcid patient also was given total of morphine 4 mg for pain blood test showed leukocytosis at 13.3 thus lactic acid was ordered it was noted to be 2.2 troponin was elevated noted 1.290-second troponin is 3.387 and BNP is 501 lipase is slightly elevated at 6.5 EKG is showed a pacing no ST elevation CT scan showed distended gallbladder and nephrolithiasis pending ultrasound of the gallbladder based on my physical examination history result of the blood test and the imaging decision to admit the patient was made I spoke to the vice president of software development on-call Dr. Martinez discussed patient condition history and physical examination results of the troponin and the rest of the blood test I was told to place the patient on heparin drip admit as myocardial infarction and call hospitalist to admit the patient spoke to Dr. Samuel discussed patient condition history and physical examination relayed the result in order of Dr. Martinez accept patient admission discussed with the treatment plan with the patient and agreed with admission Patient data External records reviewed:: [facility] previous records Clinical information provided by:: patient and family Social determinants that could affect healthcare access:: none Patient has the following chronic illnesses:: None How is presenting disease/condition affected by chronic disease/condition?: no chronic disease Evaluation data The following diagnostics were reviewed and interpreted by me:: lab results and radiology exam(s) Lab and/or radiology exams considered but not ordered:: Reviewed Interpretation Summary: Reviewed Medications / Prescriptions Medications or Prescriptions considered but not ordered:: Given Medication administrations:: Medication Administration History Morphine Sulfate (Morphine Sulf Inj 10 Mg/Ml Vial) 2 mg IVP Q30M PRN PRN Reason: ABDOMINAL CRAMPING Last Admin: 04/25/25 18:35 Dose: 2 mg Documented By: EF Pantoprazole Sodium (Pantoprazole Inj 40 Mg Vial) 40 mg IVP QDAY KATI Stop: 05/26/25 08:59 Discontinued Medications Aspirin (Aspirin 325 Mg Tablet) 325 mg PO X1 ONE Stop: 04/25/25 15:55 Last Admin: 04/25/25 16:16 Dose: 325 mg Documented By: EF Sodium Chloride (Ns) 1,000 mls @ 999 mls/hr IV .Q1H1M ONE Stop: 04/25/25 15:54 Last Infusion: 04/25/25 16:38 Dose: Infused Documented By: Admin: 04/25/25 15:37 Dose: 999 mls/hr Documented By: EF Morphine Sulfate (Morphine Sulf Inj 10 Mg/Ml Vial) 2 mg IVP X1 ONE Stop: 04/25/25 14:54 Last Admin: 04/25/25 15:37 Dose: 2 mg Documented By: EF Ondansetron HCl (Ondansetron Inj 2 Mg/Ml Inj 2 Ml) 4 mg IVP X1 ONE; Protocol Stop: 04/25/25 14:54 Last Admin: 04/25/25 15:36 Dose: 4 mg Documented By: EF Given Consultations Consultation(s) initiated? (list below): No Consultation #1 (Physician, Specialty, Details): Spoke to Dr. Martinez discussed patient condition history and physical examination relayed the EKG and troponin result ordered to admit the patient by hospitalist and start the patient on heparin drip Consultation #2 (Physician, Specialty, Details): Dr Samuel hospitalist accept patient admission Diagnosis Differential diagnosis abdominal pain: abdominal pain, acute appendicitis, calculus of kidney, diverticulitis, gastroenteritis, pancreatitis and small bowel obstruction Most likely diagnosis given after review of the tests above:: Abdominal pain myocardial infarction Admission Indicated Admission indicated?: indicated Explain why admission is indicated or not indicated:: Myocardial infarction Admission Request Was there a request for admission?: Yes Admission Attestation Admission request attestation: Discussed case with [] from Hospitalist service regarding admission. Discussed patients ED course, exam findings, labs, and radiology results. The Hospitalist [agrees,declines] to accept the patient for admission. Disposition Plan Disposition Plan: Admit Discharge Plan Plan Patient Disposition: Admit Acute Care w/in Hospital Prescriptions/Referrals Prescriptions/Med Rec: No Action folic acid 1 MG tablet 1 mg PO QDAY Qty: 0 hydrocodone-acetaminophen 10-325 mg Tablet 1 tab PO Q6H PRN (Reason: Pain) Qty: 180 levothyroxine [Synthroid] 75 mcg Tablet 75 mcg PO QDAY Qty: 0 tiotropium bromide [Spiriva with HandiHaler] 18 mcg Capsule, W/Inhalation Device 1 cap INHALATION QDAY Qty: 0 fentanyl 50 mcg/hr Patch 72 Hour 50 mcg Topical Q72H amlodipine 10 mg tablet 5 mg PO QDAY fluoxetine [Prozac] 40 mg Capsule 60 mg PO QDAY ergocalciferol (vitamin D2) [Drisdol] 1,250 mcg (50,000 unit) Capsule 1,250 mcg PO QMONTH docusate sodium 100 mg Tablet 100 mg PO QDAY lubiprostone 24 mcg Capsule 24 mcg PO BID PRN (Reason: Constipation) hydrocodone-acetaminophen 10-325 mg tablet 1 tab PO Q6H MDD 4 PRN (Reason: pain) Qty: 20 0RF clindamycin HCl 300 mg capsule 300 mg PO Q6H Qty: 30 0RF Referrals: Moon Loyola, [employer] [Primary Care Provider] - In 1 week Problem List Clinical Impression: Abdominal pain, Elevated troponin, Myocardial infarction, Nephrolithiasis Patient/Caregiver Discharge Instructions Education Materials: Abdominal Pain, Identifying Kidney Stones, Your Heart Is at Risk Print Language: Kinyarwanda Stand Alone Forms: [place] Award Info., Patient Portal Info Letter WM/LIFESTYLE CONSULTANT Supervising Physician PA/LIFESTYLE CONSULTANT Supervising Physician: Dr cuello
[2025-04-25 15:18] LABS: Lactate (Lactic Acid) 2.1 mMol/L (0.4-2.0)
[2025-04-25 15:21] LABS: Basophils # (Auto) 0.1 Thou/mm3 (0.0-0.2); Basophils % (Auto) 0 % (0-2.5); Eosinophils # (Auto) 0.0 Thou/mm3 (0.0-0.5); Eosinophils % (Auto) 0 % (0-10); Hematocrit 40.6 % (36.0-46.0); Hemoglobin 14.0 g/dL (12.0-16.0); Immature Granulocytes Auto 0.04 Thou/mm3 (0.00-0.00); Lymphocytes # (Auto) 1.5 Thou/mm3 (1.0-4.8); Lymphocytes % (Auto) 12 % (10-50); Mean Corpuscular HGB Conc 34.5 g/dl (31.0-37.0); Mean Corpuscular Hemoglobin 33.1 pg (25.0-35.0); Mean Corpuscular Volume 96 fL (80-100); Monocytes # (Auto) 0.6 Thou/mm3 (0.0-0.8); Monocytes % (Auto) 5 % (0-12); Neutrophils # (Auto) 11.0 Thou/mm3 (1.8-7.7); Neutrophils % (Auto) 83 % (37-80); Nucleated Red Blood Cell # 0.00 Thou/mm3 (0.00-0.00); Nucleated Red Blood Cell % 0 /100 WBC (0); Platelet Count 301 Thou/mm3 (140-440); RDW Standard Deviation 45.7 fL (36.4-46.3); Red Blood Count 4.23 Miln/mm3 (4.00-5.20); White Blood Count 13.3 Thou/mm3 (3.6-11.0)
[2025-04-25 15:28] VITALS: BP 177/99; PULSE 68; RESP 18; TEMP 36.6; O2SAT 98
[2025-04-25] MEDS: ONDANSETRON INJ 2 MG/ML INJ 2 ML 4 MG IVP ×2 (15:36→20:50)
[2025-04-25] MEDS: MORPHINE SULF INJ 10 MG/ML VIAL 2 MG IVP ×4 (15:37→20:49)
[2025-04-25] MEDS: SODIUM CHLORIDE 0.9% 1000 ML 1,000 ML 999 ML IV (15:37)
[2025-04-25 15:42] LABS: Collection Type, Urine Clean Catch
[2025-04-25 15:48] LABS: Alanine Aminotransferase 32 U/L (10-49); Albumin, Serum 4.8 gm/dL (3.4-4.8); Albumin/Globulin Ratio 1.7 (1.2-2.2); Alkaline Phosphatase 97 U/L (46-116); Amylase 73 U/L (30-118); Anion Gap 12 (7-16); Aspartate Amino Transferase 100 U/L (0-34); BUN/Creatinine Ratio 10 Ratio (12-20); Bilirubin,Total 0.5 mg/dL (0.3-1.2); Blood Urea Nitrogen 12 mg/dL (9-23); Calcium 9.4 mg/dL (8.3-10.6); Calcium (Corrected) 9.4 mg/dL (8.5-10.1); Carbon Dioxide 25.4 mMol/L (20.0-31.0); Chloride 101 mMol/L (98-107); Creatinine (Component) 1.2 mg/dL (0.6-1.3); Estimated Creatinine Clearance 33.2 mL/min (>60); Globulin 2.9 gm/dL (2.3-3.5); Glucose 141 mg/dL (74-106); Lipase 65 U/L (12-53); Osmolality,Calculated 277 (275-295); Potassium 4.5 mMol/L (3.4-5.1); Sodium 138 mMol/L (136-145); Total Protein 7.7 gm/dL (5.7-8.2); eGFR 47 See Note
[2025-04-25 15:50] LABS: Troponin I 1.290 ng/mL (0.0-0.045)
[2025-04-25 15:54] LABS: Bilirubin,Urine Negative (Negative); Blood,Urine 2+ (Negative); Clarity,Urine Clear (Clear/Hazy); Color,Urine Lt-Yellow (Lt Yel-Yel); Glucose, Urine Negative (Negative); Hyaline Casts,Urine < 1 /hpf (0-1); Ketones,Urine Trace (Negative); Leukocyte Esterase,Urine Negative (Negative); Nitrite,Urine Negative (Negative); PH,Urine 7.5 (5.0-7.0); Protein,Urine 3+ (Neg - Trace); RBC,Urine 1 /hpf (0-3); Specific Gravity,Urine 1.018 (1.001-1.035); Squamous Epithelial Cell,Urine 1 /hpf (0-5); Urobilinogen,Urine Negative mg/dL (0.0-1.0); WBC,Urine 3 /hpf (0-5)
--- NOTE | 2025-04-25 16:51 | XR_ITS ---
Examination: CT abdomen and pelvis without contrast. Coronal 3-D reconstructions. Sagittal 2-D reconstructions. Date and time of exam:April 25, 2025, 1855 hours Comparison August 15, 2024. INDICATIONS: Generalized abdominal pain beginning 2 days ago CTDI: vol (mGy): 6.80 DLP: (mGycm): 375 Technique: Axial images of the abdomen have been obtained, 3 mm slice thickness Intravenous contrast material has not been administered. Low dose protocols were performed. One or more of the following dose reduction techniques were used; automated exposure control, adjustment of the mA and/or KV according to patient size, use of iterative reconstruction technique. Findings: Mild pneumonia left base No focal liver lesions Distended gallbladder no gallstones noted, gallbladder wall does not appear thickened Spleen is not enlarged No pancreatic or adrenal mass Moderate renal parenchymal scar formation with perinephric stranding 2 mm calculus lower pole right kidney, no hydronephrosis or ureteral calculi No pericecal inflammatory change No bowel obstruction Colonic sutures in the sigmoid region Colonic diverticulosis, no diverticulitis Absent uterus No pelvic mass Prominent osteopenia, significant degenerative disc disease L2-3 Intact urinary bladder Moderate narrowing hip joints IMPRESSION: Distended gallbladder, recommend gallbladder sonography follow-up Moderate renal parenchymal scar formation Perinephric stranding, consider urinary tract infection 2 mm lower pole nonobstructing right renal calculus, hydronephrosis or ureteral calculi No CT findings of appendicitis bowel obstruction or diverticulitis
[2025-04-25 18:07] VITALS: BP 185/100; PULSE 73; RESP 18; TEMP 36.6; O2SAT 95
[2025-04-25 18:14] LABS: Reflex Lactate? Y
[2025-04-25 18:33] LABS: B-Type Natriuretic Peptide 501 pg/mL (0-100)
[2025-04-25 18:35] LABS: Troponin I 3.387 ng/mL (0.0-0.045)
[2025-04-25 18:51] LABS: Lactic Acid, 3 HR 2.2 mMol/L (0.4-2.0)
--- NOTE | 2025-04-25 19:31 | XR_ITS ---
Examination: Abdomen sonogram, Limited Date and time of exam: April 25, 2025 2010 hours INDICATIONS: Epigastric pain and vomiting beginning 2 days ago Technique: Real-time jasso scale transabdominal sonographic images of the upper abdomen obtained. Findings: Distended gallbladder No gallstones Gallbladder wall 0.43 cm no edema Common bile duct 0.5 cm Pancreatic head 2.6 cm Liver 12 .6 cm no liver lesions Normal hepatopedal portal venous flow Patent IVC IMPRESSION: Negative for gallstones Gallbladder wall is thickened, clinical correlation is advised, consider HIDA scan or MRCP follow-up to exclude cholecystitis
--- NOTE | 2025-04-25 19:55 | PD.RESHP ---
Documentation for date of: 04/25/25 HPI History of Present Illness Chief complaint: Chest and abdominal discomfort History of present illness: 74-year-old female with past medical history pacemaker placement for bradycardia, PAD, hypertension, hypothyroidism, anxiety/depression presenting to the ED with episode of chest discomfort and abdominal pain radiating to the flank on the right. Patient's is bedside and provided additional history regarding the patient's status. She states that earlier in the morning of 04/25 she felt a sharp hammer like sensation in her chest which only lasted for several minutes but has been mildly persistent since coming to the ED. She has also been having some abdominal discomfort with some nausea but denies having any hematemesis, melena or hematochezia. Patient follows Dr. Martinez outpatient and had a pacemaker placed. Patient also had PAD workup with angioplasty; ever, she states that her left leg has been troublesome as of late and she has difficulty ambulating. Medical history: As stated above Surgical history: Pacemaker placement, angioplasty of lower extremity, Hysterectomy and hernia repair Allergies: Cephalosporin, penicillin causes rash, iodine and levofloxacin, sulfa, cefazolin causes rash and difficulty breathing Medications: Pending official med rec Family history: Noncontributory Social history: Patient lives with in [place], denies any alcohol, tobacco or illicit drug use ROS: All 12 systems assessed and the patient denies unless otherwise stated in the HPI In the ED, patient presented in hypertensive emergency blood pressure 189/98, heart rate of 69, respiratory 18, afebrile satting 99 on room air. Pertinent lab findings include WBC of 13.3, hemoglobin 14, BUN 12, creatinine 1.24 glucose 141, lactic acid 2.4 magnesium 2.4, AST 100, ALT 32, troponin initially 1.29 increased to 3.387 increased to 5.723, BNP 501, TSH 2.74. Urinalysis shows no signs of urinary tract infection. EKG shows atrially pacemaker, left anterior fascicular block but no concerning ST changes noted. CT abdomen pelvis showed distended gallbladder, moderate renal parenchymal scar formation, mild perinephric stranding, 2 mm lower pole nonobstructing right kidney renal calculi and gallbladder ultrasound showed no gallstones but there is some wall thickening. Patient will be admitted for NSTEMI type I with cardiology consultation and IV heparin drip, possible left heart catheterization for coronary artery disease. Exam Vital Signs Temp Pulse Resp BP Pulse Ox O2 Del Method 97.9 F 73 18 185/100 H 95 Room Air 04/25/25 18:07 04/25/25 18:07 04/25/25 18:07 04/25/25 18:07 04/25/25 18:07 04/25/25 18:07 Narrative Exam Physical Exam: GENERAL: Awake, answering questions appropriately, appears stated age, frail appearing HEENT: NC/AT. Moist mucosa. PERRLA/EOMI. CARDIO: Heart RRR, no obvious murmurs, no JVD. PULM: No coughing or visible SOB. Lungs CTA B/L. GI: Abdomen soft, tenderness to palpation on right upper quadrant and epigastric region, no guarding or rebound tenderness. [place]gmi apparent SKIN/MSK/EXT: No wounds/discoloration/rashes/edema/amputations. +Pedal pulses present B/L. NEURO: Oriented x3, Moves extremities x4, no focal neurologic deficits noted Results: Labs 04/25/25 15:08 04/25/25 15:08 Labs: Short CBC 04/25/25 Range/Units 15:08 WBC 13.3 H D (3.6-11.0) Thou/mm3 Hgb 14.0 (12.0-16.0) g/dL Hct 40.6 (36.0-46.0) % Plt Count 301 D (140-440) Thou/mm3 BMP 04/25/25 15:08 Sodium 138 Potassium 4.5 Chloride 101 Carbon Dioxide 25.4 BUN 12 Creatinine 1.2 Glucose 141 H Calcium 9.4 Cardiac Enzymes 04/25/25 04/25/25 Range/Units 15:08 17:45 Troponin I 1.290 H* 3.387 H* D (0.0-0.045) ng/mL Liver Function 04/25/25 Range/Units 15:08 Total Bilirubin 0.5 (0.3-1.2) mg/dL AST 100 H (0-34) U/L ALT 32 (10-49) U/L Alkaline Phosphatase 97 (46-116) U/L Albumin 4.8 (3.4-4.8) gm/dL Urine 04/25/25 Range/Units 15:37 Urine Color Lt-Yellow (Lt Yel-Yel) Urine Clarity Clear (Clear/Hazy) Urine pH 7.5 H (5.0-7.0) Ur Specific [place] 1.018 (1.001-1.035) Urine Protein 3+ A (Neg - Trace) Urine Glucose (UA) Negative (Negative) Quality Measures Quality Measures none Advance care planning discussed with:: patient Medications Home Medications and Allergies Home Medications ?Medication ?Instructions ?Recorded ?Confirmed ?Type folic acid 1 mg tablet 1 mg PO QDAY SUPPLEMENT #0 tabs 10/25/13 07/17/24 History hydrocodone 10 mg-acetaminophen 1 tab PO Q6H PRN Pain ##180 04/11/17 07/17/24 History 325 mg tablet Held on 07/17/24. Instructions: Resume on 07/18/24. levothyroxine 75 mcg tablet 75 mcg PO QDAY ##0 04/13/17 07/17/24 History (Synthroid) tiotropium bromide 18 mcg capsule 1 cap inhalation QDAY #0 puffs 08/03/17 07/17/24 History with inhalation device (Spiriva with HandiHaler) fentanyl 50 mcg/hr transdermal 50 mcg topical Q72H 06/25/18 04/25/25 History patch fluoxetine 40 mg capsule (Prozac) 60 mg PO QDAY 02/28/19 07/17/24 History amlodipine 10 mg tablet 5 mg PO QDAY 01/11/20 07/17/24 History docusate sodium 100 mg tablet 100 mg PO QDAY 07/17/24 07/17/24 History ergocalciferol (vitamin D2) 1,250 1,250 mcg PO QMONTH 07/17/24 07/17/24 History mcg (50,000 unit) capsule (Drisdol) lubiprostone 24 mcg capsule 24 mcg PO BID PRN Constipation 07/17/24 07/17/24 History Allergies Allergy/AdvReac Type Severity Reaction Status Date / Time Cephalosporins Allergy Severe Rash Verified 04/20/25 18:44 iodine Allergy Severe RASH, HIVES Verified 04/20/25 18:44 levofloxacin Allergy Severe DESTROYS Verified 04/20/25 18:44 FEET TENDONS Penicillins Allergy Severe Rash Verified 04/20/25 18:44 Sulfa (Sulfonamide Allergy Severe Rash Verified 04/20/25 18:44 Antibiotics) cefazolin Allergy Unknown RASH, Verified 04/20/25 18:44 DIFFICULTY BREATHING Visit Medications Acetaminophen (Acetaminophen 325 Mg Tablet) 650 mg PO Q6H PRN PRN Reason: Pain 1-3 and/or Fever >100.1 Stop: 05/25/25 19:48 Hydrocodone Bitart/Acetaminophen (Hydrocodone/Apap 10/325 Tab) 1 tab PO Q4H PRN PRN Reason: PAIN SCALE 4-6 (Moderate Stop: 04/30/25 19:48 Aspirin (Aspirin Ec 81 Mg Tabec) 81 mg PO QDAY KATI Stop: 05/26/25 08:59 Clopidogrel Bisulfate (Clopidogrel Bisulfate 75 Mg Tablet) 300 mg PO X1 ONE Stop: 04/25/25 19:50 Clopidogrel Bisulfate (Clopidogrel Bisulfate 75 Mg Tablet) 75 mg PO QDAY [facility] Stop: 05/26/25 08:59 Heparin Sodium (Porcine) (Heparin Sod Inj 5000 Unit/Ml Vial) 3,500 unit 60 unit/kg (3500 unit) IV X1 ONE; Protocol Stop: 04/25/25 19:50 Heparin Sodium/Dextrose (Heparin In D5w Ivpb) 25,000 unit in 250 mls @ 6.967 mls/hr IV .Q24H KATI; Protocol Stop: 05/09/25 19:59 Morphine Sulfate (Morphine Sulf Inj 10 Mg/Ml Vial) 2 mg IVP Q30M PRN PRN Reason: ABDOMINAL CRAMPING Last Admin: 04/25/25 19:32 Dose: 2 mg Morphine Sulfate (Morphine Sulf Inj 10 Mg/Ml Vial) 1 mg IVP Q6H PRN PRN Reason: PAIN SCALE 7-10 (Severe Stop: 04/30/25 19:48 Ondansetron HCl (Ondansetron Inj 2 Mg/Ml Inj 2 Ml) 4 mg IVP Q6H PRN; Protocol PRN Reason: NAUSEA OR VOMITING Stop: 05/25/25 19:48 Pantoprazole Sodium (Pantoprazole Inj 40 Mg Vial) 40 mg IVP QDAY KATI Stop: 05/26/25 08:59 Sennosides (Senna Tablet) 1 tab PO QDAY PRN; Protocol PRN Reason: constipation Stop: 05/25/25 19:48 Discontinued Medications Aspirin (Aspirin 325 Mg Tablet) 325 mg PO X1 ONE Stop: 04/25/25 15:55 Last Admin: 04/25/25 16:16 Dose: 325 mg Sodium Chloride (Ns) 1,000 mls @ 999 mls/hr IV .Q1H1M ONE Stop: 04/25/25 15:54 Last Infusion: 04/25/25 16:38 Dose: Infused Morphine Sulfate (Morphine Sulf Inj 10 Mg/Ml Vial) 2 mg IVP X1 ONE Stop: 04/25/25 14:54 Last Admin: 04/25/25 15:37 Dose: 2 mg Ondansetron HCl (Ondansetron Inj 2 Mg/Ml Inj 2 Ml) 4 mg IVP X1 ONE; Protocol Stop: 04/25/25 14:54 Last Admin: 04/25/25 15:36 Dose: 4 mg Assessment & Plan Plan 74-year-old female with past medical history pacemaker placement for bradycardia, PAD, hypertension, hypothyroidism, anxiety/depression presenting to the ED with episode of chest discomfort and abdominal pain radiating to the flank on the right will be admitted for NSTEMI type I with cardiology consultation and IV heparin drip, possible left heart catheterization for coronary artery disease. #NSTEMI type I #Pacemaker placement #History of PAD As noted above, patient has history of vasculopathy as noted by peripheral artery disease Follows with Dr. Martinez outpatient and has had angioplasty in the past, pacemaker placement for bradycardia Presenting with chest/abdominal pain with NBA score of 98?points 4?% Probability of from admission to 6 months Presented in hypertensive emergency as noted below with troponin leak, troponin initially 1.29 increased to 3.387 increased to 5.723, BNP 501 EKG shows atrially pacemaker, left anterior fascicular block but no concerning ST changes noted. Dr. Martinez was consulted in the ED and requested admission Plan: IV heparin drip DAPT with aspirin and Plavix Beta-jessee initiated, metoprolol tartrate 25 mg p.o. twice daily Will keep n.p.o. for possible left heart catheterization Morphine initiated as the patient is having active chest pain Continue trending troponin Nitro PRN TTE ordered #Hypertension #Hypertensive emergency As noted above patient presented with blood pressure 189/98; given IV Lopressor 5 mg x 1 There is evidence of endorgan dysfunction with a troponin leak Patient is on home antihypertensives, pending med rec Plan: Initiated beta-jessee therapy Restart home medications when appropriate #Gallbladder wall thickening #Possible cholecystitis? #Urinary tract infection? As noted above patient has some abdominal pain, lower back pain with no CVA tenderness Mild leukocytosis with a WBC of 13.3, lactic acid 2.4 but no fever or symptoms of dysuria, increased urinary frequency U/A unremarkable CT abdomen pelvis showed distended gallbladder, moderate renal parenchymal scar formation, mild perinephric stranding, 2 mm lower pole nonobstructing right kidney renal calculi and gallbladder ultrasound showed no gallstones but there is some wall thickening. Plan: Started patient on IV ceftriaxone 1 g daily and Flagyl 500 p.o. every 12 to cover for both urinary and intra-abdominal infection Follow-up on HIDA scan #Hypothyroidism Chronic medical problem, pending official med rec Plan: Restart patient's home medication #Anxiety/depression Chronic medical problem, pending official med rec Plan: Restart patient's home medication Health Maintenance: Lines: PIV Diet: N.p.o. after midnight Bowel: Not needed GI prophylaxis: Protonix DVT prophylaxis: On IV heparin drip Dispo: Pending cardiology consultation for NSTEMI, possible left heart cath Code: Full Patient seen and assessed with attending Dr. Carmen Wolf DO PGY-2 Internal Medicine - [facility] Attending Provider Attestation/Addendum After examination of the patient and review of the clinical data I feel that this patient needs admission to the hospital for further treatment/evaluation. I have discussed and was present for the essential components of the history, physical examination, diagnosis, and treatment plan with the resident. I agree with the patient's care as documented by the resident and amended herein by me. Eladio Morales DO. Although this document has been carefully reviewed, there may still be some phonetic and other typographical errors. These errors are purely grammatical due to imperfections in the software program and should not be construed in any way to compromise the substance of the patient's medical care during this visit. Patient seen and evaluated in the ED. Patient is a 74-year-old female with a significant past medical history of DVT, anxiety, TIA, peripheral neuropathy, hypertension, has a pacemaker, history of SBO and diverticulitis, presented to the ED for chest discomfort, and right-sided abdominal pain radiating to the flank. Patient subsequently admitted for NSTEMI, possible urinary tract infection, possible cholecystitis and hypertensive emergency. In the ED, BP was 189/98, patient was afebrile, on room air SpO2 99%. WBC was 13.3, sodium 138, potassium 4.5, bicarb 25.4, A1c 4.7, lactic acid 2.4, troponin elevated at 5.723, BNP 501, LDL 101, lipase 65, TSH WNL. UA significant for 2+ blood, 3+ protein. Initial EKG demonstrated a paced rhythm, a CTAP was performed demonstrating a distended gallbladder, perinephric stranding, and a 2 mm lower pole nonobstructing right renal calculus, no hydronephrosis seen. No pelvic masses were noted. A gallbladder ultrasound was also obtained, was negative for gallstones however did also demonstrate a thickened gallbladder wall. Cardiology, Dr. Martinez was consulted from the ED. Patient was given a liter of fluids, morphine, and aspirin 325 mg in the ED as well. Patient admitted to telemetry for type I NSTEMI, possible complicated UTI, possible cholecystitis and hypertensive emergency which has improved. For the patient's NSTEMI, the patient was started on a heparin drip, cardiology has been consulted, continue aspirin, the patient placed on Plavix, statin and beta-jessee. Will trend the patient's troponin which has been increasing steadily, the latest is 5.5. Monitor the patient's BP allowing for a max of 25% decrease in MAP over the first 24 hours. Echo has been ordered, as needed morphine and sublingual nitro also ordered. Patient n.p.o. after midnight for any possible PCI, unclear if cath will be performed tomorrow however. Patient has also been started on ceftriaxone and Flagyl will cover both a possible urine source of infection and/or cholecystitis. UA was negative however imaging did demonstrate perinephric stranding and the patient did have some flank pain. Pain source could be renal related or possible from the gallbladder. A HIDA scan has been ordered and is pending. Will continue to monitor closely
[2025-04-25] MEDS: CLOPIDOGREL BISULFATE 75 MG TABLET 300 MG PO (20:49)
[2025-04-25 21:56] VITALS: BP 168/106; PULSE 79; RESP 17; O2SAT 95
[2025-04-25 22:01] VITALS: BP 168/104; PULSE 80
[2025-04-25] MEDS: METOPROLOL TARTRATE INJ 1 MG/ML AMP 5 ML 5 MG IVP (22:01)
[2025-04-25] MEDS: ATORVASTATIN CALCIUM 20 MG TABLET 80 MG PO (22:01)
--- NOTE | 2025-04-25 22:32 | XR_ITS ---
Examination: LORY, hepatobiliary radioisotope scan Gallbladder ejection fraction study. Date and time of exam: April 26, 2025 1028 hours INDICATIONS: Upper abdominal pain this week, thickened gallbladder wall on gallbladder sonogram April 25, 2025 Technique: 5.5 mCi of 99M Hepatolite administered. Serial imaging then obtained from immediate through 60 minutes. 1.2 mcg selective catheter Kinevac administered for gallbladder ejection fraction study. Findings: Radioisotope activity within the liver is reasonably homogenous. Gallbladder, common bile duct small bowel activity noted Impression: Gallbladder activity Abnormal gallbladder ejection fraction, 3%, normal greater than 35%
[2025-04-25 22:34] LABS: Lactate (Lactic Acid) 2.4 mMol/L (0.4-2.0)
[2025-04-25 22:48] LABS: Partial Thromboplastin Time 20.5 Seconds (22.0-36.0)
[2025-04-25 22:55] LABS: Troponin I 5.723 ng/mL (0.0-0.045)
[2025-04-25 23:22] LABS: Cardiac Risk Estimate 2.9 RATIO (3.7-5.6); Cholesterol 186 mg/dL (132-200); HDL Cholesterol 64 mg/dL (40-60); LDL Cholesterol,Calculated 101 mg/dL (0-130); Thyroid Stimulating Hormone 2.74 uIU/mL (0.55-4.78); Triglycerides 103 mg/dL (30-150)
[2025-04-25 23:33] LABS: Glucose Estimated Average 88 mg/dL (80-131); Hemoglobin A1C 4.7 % Hgb (4.8-6.0)
[2025-04-25] MEDS: HEPARIN SOD INJ 5000 UNIT/ML VIAL 3500 UNIT IV (23:39)
[2025-04-25] MEDS: Heparin/D5w 25K 250 ML Ivpb 25,000 UNIT/250 ML BAG 6.967 UNIT IV (23:45)
[2025-04-26] VITALS (10 sets, daily range): BP systolic 101–170; BP diastolic 52–106; PULSE 64–82; RESP 16–93; TEMP 36.1–37.1; O2SAT 94–97
--- NOTE | 2025-04-26 00:37 | PC.NURSE ---
Was contacted by pharmacy to verify if would like the patient have Ceftriaxone given due to the patient having a cephalosporins allergy. Per patient, she tends to get a rash when she receives any medication that falls into the cephalosporins class. Nurse contacted hospitalist Dr. Samuel and notified him regarding pharmacies concerns regarding give the ceftriaxone medication to patient. Per Dr. Samuel even though she may get a rash it is alright to give medication. Dr. Samuel educated nurse that although rash is an allergy they are looking more symptoms such as if it causes anaphylaxis. Nurse contacted pharmacy after talking to doctor and made them aware of MD decision.
--- NOTE | 2025-04-26 00:45 | PC.NURSE ---
During admission the nurse asked patient if she knew her medication by heart. Patient replied yes to nurse and nurse proceeded to do med rec conciliation. When nurse was going through the patient medications, the patient was unaware of the dosage of her medication. Per Patient, she would have her son come to the hospital in the morning and bring her medications to be reconciled.
[2025-04-26 01:29] LABS: Reflex Lactate? Y
[2025-04-26 02:03] LABS: Lactic Acid, 3 HR 1.7 mMol/L (0.4-2.0)
[2025-04-26] MEDS: MORPHINE SULF INJ 10 MG/ML VIAL 2 MG IVP ×2 (02:05→04:50)
[2025-04-26 03:17] LABS: Troponin I 6.396 ng/mL (0.0-0.045)
--- NOTE | 2025-04-26 03:23 | PC.NURSE ---
Contacted MD. Dr. Samuel regarding patient's criticial level of troponin. Also notified Jimmie Moore of uptrending troponin.
--- NOTE | 2025-04-26 03:58 | PC.NURSE ---
late entry, Dr. Samuel and Dr. Amaral arrived on unit and saw patient.
[2025-04-26] MEDS: NITROGLYCERIN 0.4 MG SUBL BTL #25 SL ×2 (04:32→06:58)
--- NOTE | 2025-04-26 04:33 | EKG_ITS ---
[facility] Test Date: 2025-04-26 Pat Name: APRIL ESPINOSA Department: Room: S261A Gender: Female Grab Operator: KATRINA : 1950 Requested By: Neri Wolf Order Number: [id number] Reading MD: Neri Wolf Measurements Intervals [place] Rate: 76 P: 63 NM: 159 QRS: -64 QRSD: 128 T: -64 QT: 506 QTc: 572 Interpretive Statements SINUS RHYTHM LEFT ANTERIOR FASCICULAR BLOCK MODERATE VOLTAGE CRITERIA FOR LVH, CONSIDER NORMAL VARIANT MODERATE T-WAVE ABNORMALITY, CONSIDER ANTEROLATERAL ISCHEMIA MODERATE T-WAVE ABNORMALITY, CONSIDER INFERIOR ISCHEMIA Compared to ECG 04/25/2025 14:13:42 T-wave abnormality now present Possible ischemia now present Atrial-paced complex(es) or rhythm no longer present /store/S0/[id number]/ecg/[id number].pdf
--- NOTE | 2025-04-26 04:45 | PD.RESEVENT ---
Documentation for date of: 04/26/25 Event Note Event Note: 04/26/2025: Rapid response called sometime around 4:30 AM for patient in room 261. Patient exhibiting chest pain secondary to NSTEMI type I. Patient's airway/breathing/circulation assessed and is currently intact. Patient states that she has substernal pressure without any radiation. Blood pressure was 160/90 with heart rate in the 70s; will not add antihypertensive as patient in hypertensive emergency. Patient continues to be on heparin drip for NSTEMI type I. Ordered EKG which shows new T wave inversions in leads V4?V6. Patient given sublingual nitroglycerin and has IV morphine if pain persists. Will continue to monitor for any acute changes and expect left heart catheterization to take place when cardiology assesses. Neri Wolf, DO PGY-2 Internal Medicine - [facility]
[2025-04-26] MEDS: ONDANSETRON INJ 2 MG/ML INJ 2 ML 4 MG IVP ×2 (04:51→12:43)
[2025-04-26 06:38] LABS: Basophils # (Auto) 0.0 Thou/mm3 (0.0-0.2); Basophils % (Auto) 0 % (0-2.5); Eosinophils # (Auto) 0.0 Thou/mm3 (0.0-0.5); Eosinophils % (Auto) 0 % (0-10); Hematocrit 40.7 % (36.0-46.0); Hemoglobin 14.2 g/dL (12.0-16.0); Immature Granulocytes Auto 0.06 Thou/mm3 (0.00-0.00); Lymphocytes # (Auto) 2.3 Thou/mm3 (1.0-4.8); Lymphocytes % (Auto) 18 % (10-50); Mean Corpuscular HGB Conc 34.9 g/dl (31.0-37.0); Mean Corpuscular Hemoglobin 32.6 pg (25.0-35.0); Mean Corpuscular Volume 93 fL (80-100); Monocytes # (Auto) 1.4 Thou/mm3 (0.0-0.8); Monocytes % (Auto) 10 % (0-12); Neutrophils # (Auto) 9.4 Thou/mm3 (1.8-7.7); Neutrophils % (Auto) 71 % (37-80); Nucleated Red Blood Cell # 0.00 Thou/mm3 (0.00-0.00); Nucleated Red Blood Cell % 0 /100 WBC (0); Platelet Count 266 Thou/mm3 (140-440); RDW Standard Deviation 45.1 fL (36.4-46.3); Red Blood Count 4.36 Miln/mm3 (4.00-5.20); White Blood Count 13.2 Thou/mm3 (3.6-11.0)
[2025-04-26 06:59] LABS: Partial Thromboplastin Time 76.5 Seconds (22.0-36.0)
[2025-04-26 07:11] LABS: Alanine Aminotransferase 29 U/L (10-49); Albumin, Serum 4.4 gm/dL (3.4-4.8); Albumin/Globulin Ratio 1.6 (1.2-2.2); Alkaline Phosphatase 94 U/L (46-116); Anion Gap 15 (7-16); Aspartate Amino Transferase 89 U/L (0-34); BUN/Creatinine Ratio 13 Ratio (12-20); Bilirubin,Total 0.8 mg/dL (0.3-1.2); Blood Urea Nitrogen 17 mg/dL (9-23); Calcium 9.2 mg/dL (8.3-10.6); Calcium (Corrected) 9.2 mg/dL (8.5-10.1); Carbon Dioxide 25.1 mMol/L (20.0-31.0); Chloride 101 mMol/L (98-107); Creatinine (Component) 1.3 mg/dL (0.6-1.3); Estimated Creatinine Clearance 30.9 mL/min (>60); Globulin 2.8 gm/dL (2.3-3.5); Glucose 112 mg/dL (74-106); Magnesium 1.5 mg/dL (1.6-2.6); Osmolality,Calculated 283 (275-295); Phosphorous 4.3 mg/dL (2.4-5.1); Potassium 3.9 mMol/L (3.4-5.1); Sodium 141 mMol/L (136-145); Total Protein 7.2 gm/dL (5.7-8.2); eGFR 43 See Note
[2025-04-26 07:14] LABS: Troponin I 8.266 ng/mL (0.0-0.045)
--- NOTE | 2025-04-26 08:13 | PD.IMCONS ---
HPI Data of Consult Requesting Physician: Ángel Morales DO Primary Care Provider: Moon Loyola NP Consult Narrative History of present illness: This is a 74-year-old female with past medical history pacemaker placement for bradycardia, PAD, hypertension, hypothyroidism, anxiety/depression Patient seen in the emergency room with a complaint of lower retrosternal epigastric pain radiating towards the back and flank on the right side Initial EKG did not show any acute ST-T wave changes Subsequently troponin was positive Today morning it peaked at 8.5 cardiology consultation requested Patient is seen in the telemetry today she appears comfortably lying in bed complains of pain in the back and in the left sided back region EKG repeat shows nonspecific ST-T wave changes Currently patient is being treated with heparin aspirin Plavix cc:: cc: Ángel Morales DO Meds Home Medications and Allergies Home Medications ?Medication ?Instructions ?Recorded ?Confirmed ?Type folic acid 1 mg tablet 1 mg PO QDAY SUPPLEMENT #0 tabs 10/25/13 07/17/24 History hydrocodone 10 mg-acetaminophen 1 tab PO Q6H PRN Pain ##180 04/11/17 07/17/24 History 325 mg tablet Held on 07/17/24. Instructions: Resume on 07/18/24. levothyroxine 75 mcg tablet 75 mcg PO QDAY ##0 04/13/17 07/17/24 History (Synthroid) tiotropium bromide 18 mcg capsule 1 cap inhalation QDAY #0 puffs 08/03/17 07/17/24 History with inhalation device (Spiriva with HandiHaler) fentanyl 50 mcg/hr transdermal 50 mcg topical Q72H 06/25/18 04/25/25 History patch fluoxetine 40 mg capsule (Prozac) 60 mg PO QDAY 02/28/19 07/17/24 History amlodipine 10 mg tablet 5 mg PO QDAY 01/11/20 07/17/24 History docusate sodium 100 mg tablet 100 mg PO QDAY 07/17/24 07/17/24 History ergocalciferol (vitamin D2) 1,250 1,250 mcg PO QMONTH 07/17/24 07/17/24 History mcg (50,000 unit) capsule (Drisdol) lubiprostone 24 mcg capsule 24 mcg PO BID PRN Constipation 07/17/24 07/17/24 History Allergies Allergy/AdvReac Type Severity Reaction Status Date / Time Cephalosporins Allergy Severe Rash Verified 04/20/25 18:44 iodine Allergy Severe RASH, HIVES Verified 04/20/25 18:44 levofloxacin Allergy Severe DESTROYS Verified 04/20/25 18:44 FEET TENDONS Penicillins Allergy Severe Rash Verified 04/20/25 18:44 Sulfa (Sulfonamide Allergy Severe Rash Verified 04/20/25 18:44 Antibiotics) cefazolin Allergy Unknown RASH, Verified 04/20/25 18:44 DIFFICULTY BREATHING Exam Vital Signs Temp Pulse Resp BP Pulse Ox O2 Del Method O2 Flow Rate 96.9 F 71 23 H 164/94 H 96 Nasal Cannula 2 04/26/25 04:35 04/26/25 06:58 04/26/25 04:35 04/26/25 06:58 04/26/25 04:35 04/26/25 04:00 04/26/25 04:00 Routine HEENT Exam Head: Present normocephalic and atraumatic Eye: Present EOMI and PERRL ENT: Present mucous membranes moist Routine Neck Exam Neck: Present supple and trachea midline Routine Respiratory Exam Respiratory: Present chest non-tender, lungs clear, normal breath sounds and no resp distress Routine Cardiovascular Exam Cardiovascular: Present RRR Routine Abdominal Exam Abdominal: Present soft and normoactive bowel sounds Routine Extremities Exam Extremities: Present full ROM Routine Skin Exam Skin: Present intact, dry and warm Routine Neurological Exam Neurological: Present alert, oriented X3 and CN II-XII intact Routine Psychiatric Exam Psychiatric: Present normal affect and normal thought process Results Labs 04/26/25 06:15 04/26/25 06:15 Labs: Short CBC 04/25/25 04/26/25 Range/Units 15:08 06:15 WBC 13.3 H D 13.2 H (3.6-11.0) Thou/mm3 Hgb 14.0 14.2 (12.0-16.0) g/dL Hct 40.6 40.7 (36.0-46.0) % Plt Count 301 D 266 D (140-440) Thou/mm3 BMP 04/25/25 04/26/25 15:08 06:15 Sodium 138 141 Potassium 4.5 3.9 D Chloride 101 101 Carbon Dioxide 25.4 25.1 BUN 12 17 Creatinine 1.2 1.3 Glucose 141 H 112 H Calcium 9.4 9.2 Cardiac Enzymes 04/25/25 04/25/25 04/25/25 Range/Units 15:08 17:45 22:08 Troponin I 1.290 H* 3.387 H* D 5.723 H* D (0.0-0.045) ng/mL 04/26/25 04/26/25 Range/Units 01:48 06:15 Troponin I 6.396 H* D 8.266 H* D (0.0-0.045) ng/mL Liver Function 04/25/25 04/26/25 Range/Units 15:08 06:15 Total Bilirubin 0.5 0.8 (0.3-1.2) mg/dL AST 100 H 89 H (0-34) U/L ALT 32 29 (10-49) U/L Alkaline Phosphatase 97 94 (46-116) U/L Albumin 4.8 4.4 (3.4-4.8) gm/dL Urine 04/25/25 Range/Units 15:37 Urine Color Lt-Yellow (Lt Yel-Yel) Urine Clarity Clear (Clear/Hazy) Urine pH 7.5 H (5.0-7.0) Ur Specific [place] 1.018 (1.001-1.035) Urine Protein 3+ A (Neg - Trace) Urine Glucose (UA) Negative (Negative) Assessment and Plan Assessment and plan (1) Non-ST elevation [place] (NSTEMI): Status: Acute (2) Coronary artery disease: Status: Acute (3) History of permanent cardiac pacemaker placement: Status: Acute (4) Lumbar spinal stenosis: Status: Acute Additional Assessment & Plan Additional Plan: Continue current medical management Patient appears comfortable today Hemodynamically stable Continue aspirin Plavix and heparin drip Patient will require further evaluation with cardiac catheter and coronary angiogram This will be scheduled
[2025-04-26] MEDS: Magnesium Sulfate 2 GM Ivpb 2 GM/50 ML BAG IV (08:29)
--- NOTE | 2025-04-26 09:30 | PC.SS ---
SENIOR ELECTRICAL DESIGNER conducted bedside contact with the patient conduct initial assessment and to discuss discharge planning.? Patient confirmed demographic information.? Patient resides at home with spouse, Julian Obrien .? Patient utilizes a walker to assist with ambulation.? Patient utilizes home oxygen.? Patient describes ability to complete ADL?s independently.? Patient reports possessing ability to operate vehicle. ?Spouse, Julian Obrien, identified as the patient?s surrogate medical decision maker.? Patient?s PCP is Moon Loyola.? Patient?s mortgage loan processor is Dr. Campbell.? Patient?s paper finisher is Dr. Villalba.? The patient does not participate with dialysis.? Patient utilizes [facility] for pharmacy services.? Plan is for the patient to return home at the time of discharge.? If home health recommended preferred agency is [facility].? Patient reports past alignment with [facility]. ?Family will provide transportation on behalf of the patient. ?No further discharge needs identified by the patient.? No further intervention required at this time, clinical social work aide will be available to address any further concerns.? Next of Kin: Julian Obrien D/C Plan: Home
--- NOTE | 2025-04-26 12:26 | EKG_ITS ---
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
[2025-04-26] MEDS: HYDROmorphone INJ 2 MG/ML VIAL 0.5 MG IVP ×3 (12:36→22:51)
[2025-04-26] MEDS: CLOPIDOGREL BISULFATE 75 MG TABLET PO (12:54)
[2025-04-26] MEDS: ASPIRIN EC 81 MG TABEC PO (12:54)
[2025-04-26] MEDS: cefTRIAXone/D5w 1gm IV premix 1 GM/50 ML BAG IV (12:55)
--- NOTE | 2025-04-26 13:20 | ESPR_ITS ---
Documentation for date of: 04/26/25 --------- Patient is a 74-year-old female with a past medical history of CAD (12/19/2009), history of PAD, hypertension, hyperlipidemia, history of bradycardia status post dual-chamber pacemaker (Biotronik), hypothyroidism, history of anxiety and depression, history of hemorrhoids, large mouth diverticulum, history of chronic abdominal pain (initially documented in 2016), history of sigmoid colectomy surgery, previous documented left-sided abdominal pain. Patient was admitted overnight with similar presentation as previous admissions complaining of diffuse abdominal pain rating to left upper quadrant. HIDA scan noted to have an gallbladder ejection fraction of 3%. Patient is not currently a surgical active candidate for any cholecystectomy given possible new diagnosis of NSTEMI pending heart catheterization. Patient also complaining of substernal chest pain which radiates bilaterally. CT abdomen obtained noted for distended gallbladder no gallstones noted. With AST at 89% and ALT at 29. Total T. bili 0.8. Negative Hernandez sign's negative on physical exam. Patient complaining of substernal chest pain that radiates to patient's back. Troponins peaked at 8.266 with EKG noted to 4 left anterior bundle block which has been seen in other EKGs previously, and ST depression. Patient is scheduled for right heart cath tomorrow. Metoprolol to tartrate started. Continue atorvastatin, heparin, continue aspirin and Plavix. Morphine escalated to Dilaudid as patient was still complaining of chest pain. s. Echo noted to show HFrEF. Schedule cath tomorrow with Dr. Martinez. Continue to trend troponin Subjective Subjective Interval history: Patient was seen and examined at bedside. A.m. vitals and labs reviewed. Patient complains of chest pain radiating to the back and left sided abdominal pain which also radiates to the lower back. Denies pain on right side of abdomen, shortness of breathe, headache, dizziness, fever, or chills. Exam Vital Signs Temp Pulse Resp BP Pulse Ox O2 Del Method O2 Flow Rate 98.8 F 64 16 169/101 H 95 Room Air 2 04/26/25 12:00 04/26/25 12:00 04/26/25 12:04/26/25 12:04/26/25 12:00 04/26/25 12:04/26/25 04:00 Narrative Exam General: No acute distress, well nourished, drowsy Eye: PERRL, EOMI, normal conjunctiva, no scleral icterus HENT: Normocephalic, atraumatic, hearing intact to conversation at normal volume, moist oral mucosa Neck: Supple, non-tender, no JVD, no lymphadenopathy Lungs: Non-labored respirations, symmetric chest rise, Clear to auscultate bilaterally Heart: Peripheral pulses intact bilaterally Abdomen: Soft,non-distended, tenderness on the left lower abdominal pain radiating to the back. Musculoskeletal: Normal range of motion and strength Skin: Skin is warm, dry, no rashes or lesions. Psychiatric: Cooperative, appropriate mood and affect Neuro: Cranial nerves II-XII grossly intact. Strength 5/5 throughout. Sensations intact to light touch. Objective Labs 04/28/25 04:54 04/28/25 04:54 Labs: Laboratory Results - last 24 hr 04/25/25 04/25/25 04/25/25 15:08 15:37 17:45 WBC 13.3 H D RBC 4.23 Hgb 14.0 Hct 40.6 MCV 96 MCH 33.1 MCHC 34.5 RDW Std Deviation 45.7 Plt Count 301 D Neut % (Auto) 83 H Lymph % (Auto) 12 White % (Auto) 5 Eos % (Auto) 0 Baso % (Auto) 0 Neut # (Auto) 11.0 H Lymph # (Auto) 1.5 White # (Auto) 0.6 Eos # (Auto) 0.0 Baso # (Auto) 0.1 Immature Gran # (Auto) 0.04 H Absolute Nucleated RBC 0.00 Immature Gran % 0 Nucleated RBC % 0 APTT Sodium 138 Potassium 4.5 Chloride 101 Carbon Dioxide 25.4 Anion Gap 12 BUN 12 Creatinine 1.2 Estim Creat Clear Calc 33.2 L eGFR 47 L BUN/Creatinine Ratio 10 L Glucose [address] Glu mg/dL 88 Hemoglobin A1c 4.7 L Calculated Osmolality 277 Lactic Acid 2.1 H Calcium 9.4 Corrected Calcium 9.4 Phosphorus Magnesium Total Bilirubin 0.5 AST 100 H ALT 32 Alkaline Phosphatase 97 Troponin I 1.290 H* 3.387 H* D B-Natriuretic Peptide 501 H* Total Protein 7.7 Albumin 4.8 Globulin 2.9 Albumin/Globulin Ratio 1.7 Triglycerides Cholesterol LDL Cholesterol, Calc HDL Cholesterol Cholesterol/HDL Ratio Amylase 73 Lipase 65 H TSH Ur Collection Type Clean Catch Urine Color Lt-Yellow Urine Clarity Clear Urine pH 7.5 H Ur Specific [place] 1.018 Urine Protein 3+ A Urine Glucose (UA) Negative Urine Ketones Trace Urine Blood 2+ A Urine Nitrite Negative Urine Bilirubin Negative Urine Urobilinogen (Auto) Negative Ur Leukocyte Esterase Negative Urine RBC 1 Urine WBC 3 Ur Squamous Epith Cells 1 Urine Bacteria None Hyaline Casts < 1 04/25/25 04/25/25 04/25/25 18:40 22:08 22:27 WBC RBC Hgb Hct MCV MCH MCHC RDW Std Deviation Plt Count Neut % (Auto) Lymph % (Auto) White % (Auto) Eos % (Auto) Baso % (Auto) Neut # (Auto) Lymph # (Auto) White # (Auto) Eos # (Auto) Baso # (Auto) Immature Gran # (Auto) Absolute Nucleated RBC Immature Gran % Nucleated RBC % APTT 20.5 L Sodium Potassium Chloride Carbon Dioxide Anion Gap BUN Creatinine Estim Creat Clear Calc eGFR BUN/Creatinine Ratio Glucose Estimated Ave Glu mg/dL Hemoglobin A1c Calculated Osmolality Lactic Acid 2.2 H 2.4 H Calcium Corrected Calcium Phosphorus Magnesium Total Bilirubin AST ALT Alkaline Phosphatase Troponin I 5.723 H* D B-Natriuretic Peptide Total Protein Albumin Globulin Albumin/Globulin Ratio Triglycerides 103 Cholesterol 186 LDL Cholesterol, Calc 101 HDL Cholesterol 64 H Cholesterol/HDL Ratio 2.9 L Amylase Lipase TSH 2.74 Ur Collection Type Urine Color Urine Clarity Urine pH Ur Specific [place] Urine Protein Urine Glucose (UA) Urine Ketones Urine Blood Urine Nitrite Urine Bilirubin Urine Urobilinogen (Auto) Ur Leukocyte Esterase Urine RBC Urine WBC Ur Squamous Epith Cells Urine Bacteria Hyaline Casts 04/26/25 04/26/25 01:48 06:15 WBC 13.2 H RBC 4.36 Hgb 14.2 Hct 40.7 MCV 93 MCH 32.6 MCHC 34.9 RDW Std Deviation 45.1 Plt Count 266 D Neut % (Auto) 71 Lymph % (Auto) 18 White % (Auto) 10 Eos % (Auto) 0 Baso % (Auto) 0 Neut # (Auto) 9.4 H Lymph # (Auto) 2.3 White # (Auto) 1.4 H Eos # (Auto) 0.0 Baso # (Auto) 0.0 Immature Gran # (Auto) 0.06 H Absolute Nucleated RBC 0.00 Immature Gran % 1 H Nucleated RBC % 0 APTT 76.5 H D Sodium 141 Potassium 3.9 D Chloride 101 Carbon Dioxide 25.1 Anion Gap 15 BUN 17 Creatinine 1.3 Estim Creat Clear Calc 30.9 L eGFR 43 L BUN/Creatinine Ratio [address]ucose [address] Glu mg/dL Hemoglobin A1c Calculated Osmolality 283 Lactic Acid 1.7 Calcium 9.2 Corrected Calcium 9.2 Phosphorus 4.3 Magnesium 1.5 L Total Bilirubin 0.8 AST 89 H ALT 29 Alkaline Phosphatase 94 Troponin I 6.396 H* D 8.266 H* D B-Natriuretic Peptide Total Protein 7.2 Albumin 4.4 Globulin 2.8 Albumin/Globulin Ratio 1.6 Triglycerides Cholesterol LDL Cholesterol, Calc HDL Cholesterol Cholesterol/HDL Ratio Amylase Lipase TSH Ur Collection Type Urine Color Urine Clarity Urine pH Ur Specific [place] Urine Protein Urine Glucose (UA) Urine Ketones Urine Blood Urine Nitrite Urine Bilirubin Urine Urobilinogen (Auto) Ur Leukocyte Esterase Urine RBC Urine WBC Ur Squamous Epith Cells Urine Bacteria Hyaline Casts Quality Measures Quality Measures none Advance care planning discussed with:: patient Assessment & Plan Assessment Current Active Medications: Generic Name Dose Route Start Last Admin Trade Name Freq PRN Reason Stop Dose Admin Acetaminophen 650 mg 04/25/25 19:49 Acetaminophen 325 Mg Tablet PO 05/25/25 19:48 Q6H PRN Pain 1-3 and/or Fever >100.1 Aspirin 81 mg 04/26/25 09:00 04/26/25 12:54 Aspirin Ec 81 Mg Tabec PO 05/26/25 08:59 81 mg QDAY KATI Administration Atorvastatin Calcium 80 mg 04/25/25 21:00 04/25/25 22:01 Atorvastatin Calcium 20 Mg Tablet PO 05/25/25 20:59 80 mg HS KATI Administration Clopidogrel Bisulfate 75 mg 04/26/25 09:00 04/26/25 12:54 Clopidogrel Bisulfate 75 Mg Tablet PO 05/26/25 08:59 75 mg QDAY KATI Administration Hydromorphone HCl 0.5 mg 04/26/25 12:20 04/26/25 12:36 Hydromorphone Inj 2 Mg/Ml Vial IVP 05/01/25 12:19 0.5 mg Q4HR PRN Administration PAIN SCALE 7-10 (Severe Heparin Sodium/Dextrose 25,000 unit in 250 mls @ 6.967 mls/hr 04/25/25 20:00 04/26/25 07:09 Heparin In D5w Ivpb IV 05/09/25 19:59 12 units/kg/hr .Q24H KATI 6.967 mls/hr Titration Protocol 12 UNITS/KG/HR Ceftriaxone Sodium/Dextrose 1 gm in 50 mls @ 100 mls/hr 04/26/25 09:00 04/26/25 12:55 Rocephin/D5w 1gm Iv Premix IV 05/03/25 08:59 100 mls/hr QDAY KATI Administration Levothyroxine Sodium 75 mcg 04/26/25 06:00 04/26/25 05:17 Levothyroxine Sodium 25 Mcg Tablet PO 05/26/25 05:59 Not Given ACBR KATI Metoprolol Tartrate 25 mg 04/26/25 09:00 04/26/25 12:49 Metoprolol Tartrate 25 Mg Tablet PO 05/26/25 08:59 Not Given BID KATI Metronidazole 500 mg 04/26/25 09:00 04/26/25 12:54 Metronidazole 250 Mg Tablet PO 05/03/25 08:59 500 mg BID KATI Administration Nitroglycerin 0.4 mg 04/25/25 23:03 04/26/25 06:58 Nitroglycerin 0.4 Mg Subl Btl #25 SL 0.4 mg Q5MIN PRN Administration CHEST PAIN Ondansetron HCl 4 mg 04/25/25 19:49 04/26/25 12:43 Ondansetron Inj 2 Mg/Ml Inj 2 Ml IVP 05/25/25 19:48 4 mg Q6H PRN Administration NAUSEA OR VOMITING Protocol Pantoprazole Sodium 40 mg 04/26/25 09:00 04/26/25 12:53 Pantoprazole Inj 40 Mg Vial IVP 05/26/25 08:59 40 mg QDAY KATI Administration Sennosides 1 tab 04/25/25 19:49 Senna Tablet PO 05/25/25 19:48 QDAY PRN constipation Protocol Plan Patient is a 74-year-old female with a past medical history of CAD (12/19/2009), history of PAD, hypertension, hyperlipidemia, history of bradycardia status post dual-chamber pacemaker (Biotronik), hypothyroidism, history of anxiety and depression, history of hemorrhoids, large mouth diverticulum, history of chronic abdominal pain (initially documented in 2016), history of sigmoid colectomy surgery who was admitted overnight to for ACS rule and diffuse abdominal pain. #NSTEMI type I vs II #Pacemaker placement secondary to bradycardia #History of PAD As noted above, patient has history of vasculopathy as noted by peripheral artery disease Follows with Dr. Martinez outpatient and has had angioplasty in the past, pacemaker placement for bradycardia Presenting with chest/abdominal pain with NBA score of 98?points 4?% Probability of from admission to 6 months Presented in hypertensive emergency as noted below with troponin leak, troponin initially 1.29 increased to 3.387 increased to 5.723, BNP 501 EKG shows atrially pacemaker, left anterior fascicular block but no concerning ST changes noted. ECHO (04/26/2025): Indications: NSTEMI, Mild LVH. Takotsubo Appearance. Akinesis In The Mid to Apical Septal, Inferior, Lateral, Anterior, Anteroseptal, and [place]. Estimated EF 25-30%. Grade III DD. Severe LAE. Moderate to Severe MR. Plan: - heparin drip -DAPT with aspirin and Plavix -Beta-jessee initiated, metoprolol tartrate 25 mg p.o. twice daily -Left Heart Catherization schduled tomorrow. Keep NPO. -Discontinued morphine and started Dilaudid 0.4mg IV q4h prn as patient couldn't tolerate chest pain. -Continue trending troponin -Nitro PRN #Congestive Heart Failure #HFrEF, EF 25-30% #Diastolic Dysfunctoion 22 PM Patient presented with chief complaint of worsening chest pressure localized to the left chest and radiating to the right with jaw pain as well. BMP elevated at 501. EKG noted ejection fraction of 25 to 30%. Concern for cardiomyopathy given diastolic grade 3 dysfunction. Vascular congestion not noted. EKG noted for left anterior bundle branch block which has been present in previous EKG, sinus rhythm, possible inferior leads. Echo: BNP 501 (04/25/2025):LV Size Normal. Mild LVH. Takotsubo Appearance. Akinesis In The Mid to Apical Septal, Inferior, Lateral, Anterior, Anteroseptal, and [place]. Estimated EF 25-30%. Grade III DD. Normal RV. RVSP 23mmHg. RAP 5mmHg. Severe LAE Mild MAC.Moderate to Severe MR Mild AOV Sclerosis. Trace AI Mild TRNo Pericardial Effusion. NYHA Class: I Plan: -Pending cardio recommendation, thank you. -does not appear fluid overloaded -work towards GDMT, per cardio recs. -K>4 and Mg >2 -Fluid Restriction and Sodium Restriction 2 g per day AM -Daily Weights, Strict Ins and Outs, Fluid Striction (1800 ml), Sodium Restriction 2 grams per day -Cardiology Consult, appreciate recommendations. #Biliary Dyskinesia #Intractable Abdominal Pain #Chronic Abdominal pain As noted above patient has some abdominal pain, lower back pain with no CVA tenderness Mild leukocytosis with a WBC of 13.3, lactic acid 2.4 but no fever or symptoms of dysuria, increased urinary frequency U/A unremarkable CT abdomen pelvis showed distended gallbladder, moderate renal parenchymal scar formation, mild perinephric stranding, 2 mm lower pole nonobstructing right kidney renal calculi and gallbladder ultrasound showed no gallstones but there is some wall thickening. HIDA scan: Abnormal gallbladder ejection fraction, 3%, normal greater than 35% Plan: -Started patient on IV ceftriaxone 1 g daily and Flagyl 500 p.o. every 12 to cover for both urinary and intra-abdominal infection -Currently patient is not a surgical candidate for cholcystectomy due to active NSTEMI. Patient would need to follow outpatient general surgery for the procedure. #Hypertension #Hypertensive emergency (resolved) As noted above patient presented with blood pressure 189/98; given IV Lopressor 5 mg x 1 There is evidence of endorgan dysfunction with a troponin leak Patient is on home antihypertensives, pending med rec Plan: Initiated beta-jessee therapy Restart home medications when appropriate #Hypothyroidism Chronic medical problem, pending official med rec Plan: Restart patient's home medication #Anxiety/depression Chronic medical problem, pending official med rec Plan: Restart patient's home medication #Incidental prominent osteopenia, significant degenerative disc disease L2-3 Assessment and plan discussed with my attending physician Dr. Roman and Dr. Mcmullen (PGY-2) Dr. Beltran (PGY-1)- Internal medicine resident - The patient's plan was discussed with attending Dr. Jessie Mcmullen MD PGY2 Internal Medicine Attending Provider Attestation/Addendum 71-year-old female with multiple comorbidities including hypertension, hyperlipidemia, sick sinus syndrome status post pacemaker placement and coronary artery disease with PAD who presented with chest discomfort found to have elevated troponins subsequently admitted for cardiac workup. Cardiology was consulted and recommended starting patient on a heparin drip and plan for cardiac catheterization. I reviewed above note and agree with findings and plans. I have also personally examined the patient with medicine team and went over assessment and plan with medical team including trestle mainternance laborer and resident physician.
[2025-04-26 14:06] LABS: Partial Thromboplastin Time 52.2 Seconds (22.0-36.0)
[2025-04-26 15:30] LABS: Troponin I 6.913 ng/mL (0.0-0.045)
--- NOTE | 2025-04-26 19:54 | ECHO_ITS ---
Transthoracic Echo Report Ht (in): 61 Wt (lb): 128 Exam Location: Echo Lab Status: Inpatient Special Needs Bus Driver: Krystle Angel Indications: Procedure Performed: BP: 164 / 94 HR: 71 Technical Quality: Techncially Difficult MEASUREMENTS (Male / Female) Normal Values 2D ECHO LV Diastolic Diameter PLAX 4.7 cm 4.2 - 5.9 / 3.9 - 5.3 cm LV Systolic Diameter PLAX 3.5 cm IVS Diastolic Thickness 1.4 cm 0.6 - 1.0 / 0.6 - 0.9 cm LVPW Diastolic Thickness 1.1 cm 0.6 - 1.0 / 0.6 - 0.9 cm LV Relative Wall Thickness 0.5 LVOT Diameter 1.4 cm LA Volume Index 51.8 cm?/m? 16 - 28 cm?/m? DOPPLER AV Peak Velocity 97.7 cm/s AV Peak Gradient 3.8 mmHg AI Peak Velocity 386.0 cm/s AI Peak Gradient 59.6 mmHg AI Pressure Half Time 826.0 ms LVOT Peak Velocity 82.9 cm/s LVOT Peak Gradient 2.7 mmHg AV Area Cont Eq pk 1.3 cm? MV Area PHT 3.4 cm? MR Peak Velocity 497.0 cm/s MR Peak Gradient 98.8 mmHg MR ERO PISA 0.4 cm? Mitral E Point Velocity 91.2 cm/s Mitral A Point Velocity 43.2 cm/s Mitral E to A Ratio 2.1 LV E' Lateral Velocity 2.3 cm/s Mitral E to LV E' Lateral Ratio 40.0 LV E' Septal Velocity 3.1 cm/s Mitral E to LV E' Septal Ratio 29.0 TR Peak Velocity 234.5 cm/s TR Peak Gradient 22.0 mmHg PV Peak Velocity 81.4 cm/s PV Peak Gradient 2.7 mmHg FINDINGS Left Ventricle The left ventricle size is normal. Mild ventricular septal hypertrophy. Takotsubo appearance of the left ventricle with ankinesis in the apex, mid to apex apical septal, lateral, inferior, anterior, and anteroseptal wall segments. Estimated EF 25-30%. Grade III diastolic dysfunction. Right Ventricle The right ventricle is normal in size and systolic function. The estimated right ventricular systolic pressure, 23 mmHg. RAP 5mmHg. An ICD wire is present in the right ventricular cavity. Left Atrium The left atrial cavity size is severely increased. Right Atrium The right atrium is normal by two-dimensional imaging, color flow and Doppler imaging with no structural abnormalities, no thrombus formation present. Atrial Septum The interatrial septum appears normal with no evidence of a shunt. Aorta The aorta is normal by two-dimensional, color flow and Doppler interrogation. Mitral Valve The mitral valve annulus is mildly calcified without stenosis. The anterior leaflet . There is no significant mitral valve regurgitation, stenosis or prolapse. Mild to moderate eccentric mitral regurgitation noted. Aortic Valve The aortic valve is trileaflet and mildly sclerotic without stenosis. There is trace aortic regurgitation. Tricuspid Valve The tricuspid valve is normal by two-dimensional, color flow and Doppler interrogation. There is mild tricuspid regurgitation. Pulmonic Valve The pulmonic valve is not well visualized. There is trace pulmonic regurgitation. Vessels The pulmonary artery appears normal. The inferior vena cava pulmonary and hepatic veins appear normal. Pericardium The pericardium is normal by two-dimensional imaging. There is no significant pericardial effusion. CONCLUSIONS Indications: NSTEMI LV Size Normal. Mild LVH. Takotsubo Appearance. Akinesis In The Mid to Apical Septal, Inferior, Lateral, Anterior, Anteroseptal, and [place]. Estimated EF 25-30%. Grade III DD. Normal RV. RVSP 23mmHg. RAP 5mmHg. Severe LAE. Mild MAC.Moderate to Severe MR. Mild AOV Sclerosis. Trace AI. Mild TR. No Pericardial Effusion. Michael Martinez (Electronically Signed) Final Date: 26 April 2025 11:26
[2025-04-26] MEDS: ATORVASTATIN CALCIUM 20 MG TABLET 80 MG PO (20:45)
[2025-04-26] MEDS: METOPROLOL TARTRATE 25 MG TABLET PO (20:46)
[2025-04-26 21:38] LABS: Troponin I 6.016 ng/mL (0.0-0.045)
[2025-04-26 21:42] LABS: Partial Thromboplastin Time 56.4 Seconds (22.0-36.0)
[2025-04-27] VITALS (24 sets, daily range): BP systolic 103–181; BP diastolic 69–111; PULSE 7–105; RESP 12–26; TEMP 36.1–36.8; O2SAT 94–99
[2025-04-27 03:25] LABS: Troponin I 4.300 ng/mL (0.0-0.045)
[2025-04-27 06:21] LABS: Basophils # (Auto) 0.1 Thou/mm3 (0.0-0.2); Basophils % (Auto) 1 % (0-2.5); Eosinophils # (Auto) 0.1 Thou/mm3 (0.0-0.5); Eosinophils % (Auto) 1 % (0-10); Hematocrit 39.9 % (36.0-46.0); Hemoglobin 13.7 g/dL (12.0-16.0); Immature Granulocytes Auto 0.04 Thou/mm3 (0.00-0.00); Lymphocytes # (Auto) 2.8 Thou/mm3 (1.0-4.8); Lymphocytes % (Auto) 22 % (10-50); Mean Corpuscular HGB Conc 34.3 g/dl (31.0-37.0); Mean Corpuscular Hemoglobin 32.5 pg (25.0-35.0); Mean Corpuscular Volume 95 fL (80-100); Monocytes # (Auto) 1.6 Thou/mm3 (0.0-0.8); Monocytes % (Auto) 12 % (0-12); Neutrophils # (Auto) 8.4 Thou/mm3 (1.8-7.7); Neutrophils % (Auto) 65 % (37-80); Nucleated Red Blood Cell # 0.00 Thou/mm3 (0.00-0.00); Nucleated Red Blood Cell % 0 /100 WBC (0); Platelet Count 233 Thou/mm3 (140-440); RDW Standard Deviation 46.0 fL (36.4-46.3); Red Blood Count 4.22 Miln/mm3 (4.00-5.20); White Blood Count 12.9 Thou/mm3 (3.6-11.0)
[2025-04-27 06:39] LABS: INR 1.0 (0.9-1.3); Partial Thromboplastin Time 64.9 Seconds (22.0-36.0); Prothrombin Time 10.9 Seconds (9.0-12.2)
[2025-04-27] MEDS: HYDROmorphone INJ 2 MG/ML VIAL 0.5 MG IVP ×4 (06:44→21:33)
[2025-04-27 06:46] LABS: Alanine Aminotransferase 28 U/L (10-49); Albumin, Serum 3.8 gm/dL (3.4-4.8); Albumin/Globulin Ratio 1.5 (1.2-2.2); Alkaline Phosphatase 85 U/L (46-116); Anion Gap 12 (7-16); Aspartate Amino Transferase 71 U/L (0-34); BUN/Creatinine Ratio 14 Ratio (12-20); Bilirubin,Total 0.4 mg/dL (0.3-1.2); Blood Urea Nitrogen 26 mg/dL (9-23); Calcium 8.5 mg/dL (8.3-10.6); Calcium (Corrected) 8.7 mg/dL (8.5-10.1); Carbon Dioxide 25.1 mMol/L (20.0-31.0); Chloride 100 mMol/L (98-107); Creatinine (Component) 1.9 mg/dL (0.6-1.3); Estimated Creatinine Clearance 21.5 mL/min (>60); Globulin 2.6 gm/dL (2.3-3.5); Glucose 97 mg/dL (74-106); Osmolality,Calculated 278 (275-295); Potassium 3.1 mMol/L (3.4-5.1); Sodium 137 mMol/L (136-145); Total Protein 6.4 gm/dL (5.7-8.2); eGFR 27 See Note
--- NOTE | 2025-04-27 07:31 | ESPR_ITS ---
Documentation for date of: 04/27/25 Subjective Subjective Interval history: No acute events overnight. Patient was at cath this morning. Labs and vitals were reviewed. WBC downtrending, 12.9 today. Troponin downtrended earlier this morning, 4.3 potassium was 3.1, repleted. BUN was 26, 17 yesterday. Creatinine 1.9. Likely JOCELYN, will consult nephrology. Will update on patient's condition per her request. Review of systems otherwise negative except what is mentioned above. Exam Vital Signs Temp Pulse Resp BP Pulse Ox O2 Del Method O2 Flow Rate 97.9 F 85 20 115/81 97 Room Air 2 04/27/25 04:00 04/27/25 04:00 04/27/25 04:00 04/27/25 04:00 04/27/25 04:00 04/27/25 04:00 04/26/25 04:00 Narrative Exam Physical Exam General: Awake and in no acute distress. Conversational and non-toxic appearing. HEENT: Normocephalic, atraumatic, mucous membranes moist. Heart: Regular rate and rhythm, normal S1 and S2, no murmurs appreciated. Lungs: Clear to auscultation with no wheezing or crackles. Abdomen: Soft, nondistended, positive bowel sounds. Left lower quadrant tenderness. No guarding or rebound tenderness. Neurologic: Alert and oriented x3, no gross neurological deficit, and patient able to move all 4 extremities. Extremities: No edema. Skin: No rash or ecchymoses. Objective Labs 04/28/25 04:54 04/28/25 04:54 Labs: Laboratory Results - last 24 hr 04/26/25 04/26/25 04/26/25 13:35 14:59 20:51 WBC RBC Hgb Hct MCV MCH MCHC RDW Std Deviation Plt Count Neut % (Auto) Lymph % (Auto) [place] % (Auto) Eos % (Auto) Baso % (Auto) Neut # (Auto) Lymph # (Auto) [place] # (Auto) Eos # (Auto) Baso # (Auto) Immature Gran # (Auto) Absolute Nucleated RBC Immature Gran % Nucleated RBC % PT INR APTT 52.2 H D 56.4 H Sodium Potassium Chloride Carbon Dioxide Anion Gap BUN Creatinine Estim Creat Clear Calc eGFR BUN/Creatinine Ratio Glucose Calculated Osmolality Calcium Corrected Calcium Total Bilirubin AST ALT Alkaline Phosphatase Troponin I 6.913 H* D 6.016 H* D Total Protein Albumin Globulin Albumin/Globulin Ratio 04/27/25 04/27/25 02:54 04:52 WBC 12.9 H RBC 4.22 Hgb 13.7 Hct 39.9 MCV 95 MCH 32.5 MCHC 34.3 RDW Std Deviation 46.0 Plt Count 233 D Neut % (Auto) 65 Lymph % (Auto) 22 [place] % (Auto) 12 Eos % (Auto) 1 Baso % (Auto) 1 Neut # (Auto) 8.4 H Lymph # (Auto) 2.8 [place] # (Auto) 1.6 H Eos # (Auto) 0.1 Baso # (Auto) 0.1 Immature Gran # (Auto) 0.04 H Absolute Nucleated RBC 0.00 Immature Gran % 0 Nucleated RBC % 0 PT 10.9 INR 1.0 APTT 64.9 H Sodium 137 Potassium 3.1 L D Chloride 100 Carbon Dioxide 25.1 Anion Gap 12 BUN 26 H Creatinine 1.9 H D Estim Creat Clear Calc 21.5 L eGFR 27 L BUN/Creatinine Ratio 14 Glucose 97 Calculated Osmolality 278 Calcium 8.5 Corrected Calcium 8.7 Total Bilirubin 0.4 AST 71 H ALT 28 Alkaline Phosphatase 85 Troponin I 4.300 H* D Total Protein 6.4 Albumin 3.8 D Globulin 2.6 Albumin/Globulin Ratio 1.5 Quality Measures Quality Measures none Advance care planning discussed with:: patient Assessment & Plan Assessment Current Active Medications: Generic Name Dose Route Start Last Admin Trade Name Freq PRN Reason Stop Dose Admin Acetaminophen 650 mg 04/25/25 19:49 Acetaminophen 325 Mg Tablet PO 05/25/25 19:48 Q6H PRN Pain 1-3 and/or Fever >100.1 Aspirin 81 mg 04/26/25 09:00 04/26/25 12:54 Aspirin Ec 81 Mg Tabec PO 05/26/25 08:59 81 mg QDAY KATI Administration Atorvastatin Calcium 80 mg 04/25/25 21:00 04/26/25 20:45 Atorvastatin Calcium 20 Mg Tablet PO 05/25/25 20:59 80 mg HS KATI Administration Clopidogrel Bisulfate 75 mg 04/26/25 09:00 04/26/25 12:54 Clopidogrel Bisulfate 75 Mg Tablet PO 05/26/25 08:59 75 mg QDAY KATI Administration Hydromorphone HCl 0.5 mg 04/26/25 12:20 04/27/25 06:44 Hydromorphone Inj 2 Mg/Ml Vial IVP 05/01/25 12:19 0.5 mg Q4HR PRN Administration PAIN SCALE 7-10 (Severe Heparin Sodium/Dextrose 25,000 unit in 250 mls @ 6.967 mls/hr 04/25/25 20:00 04/26/25 22:05 Heparin In D5w Ivpb IV 05/09/25 19:59 12 units/kg/hr .Q24H KATI 6.967 mls/hr Titration Protocol 12 UNITS/KG/HR Ceftriaxone Sodium/Dextrose 1 gm in 50 mls @ 100 mls/hr 04/26/25 09:00 04/26/25 12:55 Rocephin/D5w 1gm Iv Premix IV 05/03/25 08:59 100 mls/hr QDAY KATI Administration Levothyroxine Sodium 75 mcg 04/26/25 06:00 04/27/25 05:17 Levothyroxine Sodium 25 Mcg Tablet PO 05/26/25 05:59 Not Given ACBR KATI Metoprolol Succinate 25 mg 04/27/25 09:00 Metoprolol Succinate Xl 25 Mg Tabcr PO 05/27/25 08:59 QDAY KATI Metronidazole 500 mg 04/26/25 09:00 04/26/25 20:46 Metronidazole 250 Mg Tablet PO 05/03/25 08:59 500 mg BID KATI Administration Nitroglycerin 0.4 mg 04/25/25 23:03 04/26/25 06:58 Nitroglycerin 0.4 Mg Subl Btl #25 SL 0.4 mg Q5MIN PRN Administration CHEST PAIN Ondansetron HCl 4 mg 04/25/25 19:49 04/26/25 12:43 Ondansetron Inj 2 Mg/Ml Inj 2 Ml IVP 05/25/25 19:48 4 mg Q6H PRN Administration NAUSEA OR VOMITING Protocol Pantoprazole Sodium 40 mg 04/26/25 09:00 04/26/25 12:53 Pantoprazole Inj 40 Mg Vial IVP 05/26/25 08:59 40 mg QDAY KATI Administration Potassium Chloride 40 meq 04/27/25 07:29 Potassium Chloride 20 Meq Tabcr PO 04/27/25 07:30 X1 ONE Sennosides 1 tab 04/25/25 19:49 Senna Tablet PO 05/25/25 19:48 QDAY PRN constipation Protocol Plan Patient is a 74-year-old female with a past medical history of CAD (12/19/2009), history of PAD, hypertension, hyperlipidemia, history of bradycardia status post dual-chamber pacemaker (Biotronik), hypothyroidism, history of anxiety and depression, history of hemorrhoids, large mouth diverticulum, history of chronic abdominal pain (initially documented in 2016), history of sigmoid colectomy surgery who was admitted on 04/25/25 for ACS rule out, confirmed to have Takotsubo cardiomyopathy on cardiac cath, and biliary dyskinesia per HIDA. # Takotsubo cardiomyopathy #NSTEMI type II #Pacemaker placement secondary to bradycardia #History of PAD As noted above, patient has history of vasculopathy as noted by peripheral artery disease Follows with Dr. Martinez outpatient and has had angioplasty in the past, pacemaker placement for bradycardia Presenting with chest/abdominal pain with NBA score of 98?points 4?% Probability of from admission to 6 months Presented in hypertensive emergency as noted below with troponin leak, troponin initially 1.29 increased to 3.387 increased to 5.723, BNP 501 EKG shows atrially pacemaker, left anterior fascicular block but no concerning ST changes noted. ECHO (04/26/2025): Indications: NSTEMI, Mild LVH. Takotsubo Appearance. Akinesis In The Mid to Apical Septal, Inferior, Lateral, Anterior, Anteroseptal, and [place]. Estimated EF 25-30%. Grade III DD. Severe LAE. Moderate to Severe MR. Troponin downtrended, 4.3 this morning. Cardiac cath (04/27/2025): No significant coronary lesion, most likely Takotsubo cardiomyopathy. Plan: -Hold heparin drip -Hold aspirin and Plavix -Continue metoprolol tartrate 25 mg p.o. twice daily ? Resume cardiac diet -Continue nitro PRN #HFrEF, EF 25-30% #Diastolic Dysfunctoion 22 PM Patient presented with chief complaint of worsening chest pressure localized to the left chest and radiating to the right with jaw pain as well. BMP elevated at 501. EKG noted ejection fraction of 25 to 30%. Concern for cardiomyopathy given diastolic grade 3 dysfunction. Vascular congestion not noted. EKG noted for left anterior bundle branch block which has been present in previous EKG, sinus rhythm, possible inferior leads. BNP 501 Echo (04/26/2025): Estimated EF 25 to 30%, likely due to Takotsubo cardiomyopathy as above. Note, no previous echocardiogram available for comparison. NYHA Class: I Plan: -Cardiology consulted, appreciate recommendations -work towards GDMT -K>4 and Mg >2 -Fluid Restriction and Sodium Restriction 2 g per day AM -Daily Weights, Strict Ins and Outs, Fluid Striction (1800 ml), Sodium Restriction 2 grams per day #JOCELYN Serum creatinine today was 1.9 (baseline is 1.2). Likely secondary to decreased cardiac output from above. Also possibly secondary to hypertensive emergency on admission. ? Nephrology consulted, appreciate recommendations ? Avoid nephrotoxins ? Monitor renal panel ? Renally dose medications ? Hold LIDYA/ARB/diuretics #Biliary Dyskinesia #Intractable Abdominal Pain #Chronic Abdominal pain As noted above patient has some abdominal pain, lower back pain with no CVA tenderness Mild leukocytosis with a WBC of 13.3, lactic acid 2.4 but no fever or symptoms of dysuria, increased urinary frequency U/A unremarkable CT abdomen pelvis showed distended gallbladder, moderate renal parenchymal scar formation, mild perinephric stranding, 2 mm lower pole nonobstructing right kidney renal calculi and gallbladder ultrasound showed no gallstones but there is some wall thickening. HIDA scan: Abnormal gallbladder ejection fraction, 3%, normal greater than 35% Plan: -Continue IV ceftriaxone 1 g daily and Flagyl 500 p.o. every 12 to cover for both urinary and intra-abdominal infection ?Follow outpatient general surgery for procedure #Incidental prominent osteopenia, significant degenerative disc disease L2-[address] spine 04/20/25: L5-S1 3 mm and lumbar disc bulge with significant bilateral neural foraminal stenosis, moderate left and advanced right L5 ganglionic , Suspicious for discitis osteomyelitis at the L2-L3 level compression. ? Hydromorphone and acetaminophen as needed for pain ? Consider outpatient management #Hypertension #Hypertensive emergency (resolved) As noted above patient presented with blood pressure 189/98; given IV Lopressor 5 mg x 1 There is evidence of end organ dysfunction with a troponin leak Patient is on home antihypertensives, pending med rec Plan: ?Initiated beta-jessee therapy as above ?Restart home medications when appropriate #Hypothyroidism Chronic medical problem, pending official med rec Plan: ?Restart patient's home medication #Anxiety/depression Chronic medical problem, pending official med rec Plan: ?Restart patient's home medication Health Maintenance Disposition: s/p cardiac catheterization, IVF resuscitation DVT prophylaxis: Heparin drip GI prophylaxis: None needed Diet: Cardiac CODE STATUS: Full Patient plan of care was discussed with the senior resident, -, and attending physician, . Verónica Mantilla, PGY-1 Attending Provider Attestation/Addendum 71-year-old female with multiple comorbidities including hypertension, hyperlipidemia, sick sinus syndrome status post pacemaker placement and coronary artery disease with PAD who presented with chest discomfort found to have elevated troponins subsequently admitted for cardiac workup. Cardiology was consulted and recommended starting patient on a heparin drip. In addition, patient underwent cardiac catheterization with findings of heart failure with reduced EF with EF 25-30% and Takotsubo cardiomyopathy. As of now, plan to continue diuresing the patient and appreciate cardiology input. I reviewed above note and agree with findings and plans. I have also personally examined the patient with medicine team and went over assessment and plan with medical team including international specialist and resident physician.
[2025-04-27] MEDS: ASPIRIN EC 81 MG TABEC PO (08:10)
[2025-04-27] MEDS: CLOPIDOGREL BISULFATE 75 MG TABLET PO (08:10)
[2025-04-27] MEDS: SODIUM CHLORIDE 0.9% 1000 ML 1,000 ML 100 ML IV (08:19)
[2025-04-27] MEDS: Heparin/D5w 25K 250 ML Ivpb 25,000 UNIT/250 ML BAG 6.967 UNIT IV (08:19)
[2025-04-27 08:34] LABS: Troponin I 3.078 ng/mL (0.0-0.045)
--- NOTE | 2025-04-27 08:41 | EKG_ITS ---
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
[2025-04-27] MEDS: NITROGLYCERIN 0.4 MG SUBL BTL #25 SL ×2 (08:44→09:13)
[2025-04-27] MEDS: DIAZEPAM 5 MG TABLET PO (08:56)
[2025-04-27] MEDS: ONDANSETRON INJ 2 MG/ML INJ 2 ML 4 MG IVP ×3 (08:59→21:03)
--- NOTE | 2025-04-27 09:18 | PC.NURSE ---
patient arrived in [employer] at approximately 0830. Patient complaining of chest pain 7/10 with nausea and vomiting. Called Dr. Martinez made aware. Patient recvd Nitro per protocol, and new EKG. Per Dr. Martinez EKG looks fine, new orders to continue nitro sublingual recvd. 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 Will continue to monitor.
--- NOTE | 2025-04-27 10:29 | PD.CARDCATH ---
Cardiac Cath Procedure Procedure Narrative Procedure date 04/27/2025 Title of the procedure 1.left heart catheterization 2.left coronary angiogram 3.right coronary angiogram 4.left ventriculogram 5.conscious sedation 6.radiographic interpretation and supervision 7.ultrasound guidance for right radial access Indication for the procedure This is a 74-year-old female with past medical history of borderline hypertension Patient was admitted with chest pain ruled in for non-ST elevation SC with a peak troponin of 8 EKG shows marked T inversions anterolaterally Cardiac catheterization and coronary angio recommended Procedure This is done in the cardiac lab under current electrocardiographic monitoring intermittent blood pressure monitoring Right radial access obtained using modified Seldinger technique and ultrasound guidance TIG 4 catheter used for selective images left coronary artery TIG 4 catheter used for selective in the right coronary artery LV gram was not done due to elevated creatinine of 1.9 Findings Hemodynamics LV gram was not done Coronary anatomy 1.left main coronary artery appears normal 2.left anterior descending artery has minor luminal irregularities in the midsegment 10% Giovanni plaquing 3.right coronary is a dominant vessel gives off PDA posterolateral branches no significant lesion noted Conclusion No significant coronary lesion Together with the patient's presentation the echocardiographic exam patient most likely has Takotsubo cardiomyopathy
--- NOTE | 2025-04-27 10:34 | PD.IMPROG ---
Documentation for date of: 04/27/25 Subjective Subjective Interval history: Patient continues to complain of chest pain Coronary angiogram does not show any coronary artery disease Echo shows severe LV dysfunction with apical hypokinesis suggestive of Takotsubo cardiomyopathy Exam Vital Signs Temp Pulse Resp BP Pulse Ox O2 Del Method O2 Flow Rate 97.5 F 70 18 168/96 H 99 Room Air 2 04/27/25 09:05 04/27/25 09:13 04/27/25 09:05 04/27/25 09:13 04/27/25 09:05 04/27/25 09:05 04/26/25 04:00 Routine HEENT Exam Head: Present normocephalic and atraumatic Eye: Present EOMI and PERRL ENT: Present mucous membranes moist Routine Neck Exam Neck: Present supple and trachea midline Routine Respiratory Exam Respiratory: Present chest non-tender, lungs clear, normal breath sounds and no resp distress Routine Cardiovascular Exam Cardiovascular: Present RRR Routine Abdominal Exam Abdominal: Present soft and normoactive bowel sounds Routine Extremities Exam Extremities: Present full ROM Routine Skin Exam Skin: Present intact, dry and warm Routine Neurological Exam Neurological: Present alert, oriented X3 and CN II-XII intact Routine Psychiatric Exam Psychiatric: Present normal affect and normal thought process Objective Labs 04/27/25 04:52 04/27/25 04:52 Labs: Laboratory Results - last 24 hr 04/26/25 04/26/25 04/26/25 13:35 14:59 20:51 WBC RBC Hgb Hct MCV MCH MCHC RDW Std Deviation Plt Count Neut % (Auto) Lymph % (Auto) [place] % (Auto) Eos % (Auto) Baso % (Auto) Neut # (Auto) Lymph # (Auto) [place] # (Auto) Eos # (Auto) Baso # (Auto) Immature Gran # (Auto) Absolute Nucleated RBC Immature Gran % Nucleated RBC % PT INR APTT 52.2 H D 56.4 H Sodium Potassium Chloride Carbon Dioxide Anion Gap BUN Creatinine Estim Creat Clear Calc eGFR BUN/Creatinine Ratio Glucose Calculated Osmolality Calcium Corrected Calcium Total Bilirubin AST ALT Alkaline Phosphatase Troponin I 6.913 H* D 6.016 H* D Total Protein Albumin Globulin Albumin/Globulin Ratio 04/27/25 04/27/25 04/27/25 02:54 04:52 08:00 WBC 12.9 H RBC 4.22 Hgb 13.7 Hct 39.9 MCV 95 MCH 32.5 MCHC 34.3 RDW Std Deviation 46.0 Plt Count 233 D Neut % (Auto) 65 Lymph % (Auto) 22 [place] % (Auto) 12 Eos % (Auto) 1 Baso % (Auto) 1 Neut # (Auto) 8.4 H Lymph # (Auto) 2.8 [place] # (Auto) 1.6 H Eos # (Auto) 0.1 Baso # (Auto) 0.1 Immature Gran # (Auto) 0.04 H Absolute Nucleated RBC 0.00 Immature Gran % 0 Nucleated RBC % 0 PT 10.9 INR 1.0 APTT 64.9 H Sodium 137 Potassium 3.1 L D Chloride 100 Carbon Dioxide 25.1 Anion Gap 12 BUN 26 H Creatinine 1.9 H D Estim Creat Clear Calc 21.5 L eGFR 27 L BUN/Creatinine Ratio 14 Glucose 97 Calculated Osmolality 278 Calcium 8.5 Corrected Calcium 8.7 Total Bilirubin 0.4 AST 71 H ALT 28 Alkaline Phosphatase 85 Troponin I 4.300 H* D 3.078 H* D Total Protein 6.4 Albumin 3.8 D Globulin 2.6 Albumin/Globulin Ratio 1.5 Assessment & Plan A&P Narrative Most likely Takotsubo cardiomyopathy Coronary angiogram does not show any significant coronary artery disease Optimize heart failure medications Monitor renal function Time Spent With Patient Time: Total time spent is greater than 50% in coordination of care (as documented) at patient's floor/unit and/or counseling patient:
[2025-04-27] MEDS: hydrALAZINE INJ 20 MG/ML VIAL 10 MG IV (11:09)
[2025-04-27 12:29] LABS: Albumin, Serum 4.2 gm/dL (3.4-4.8); Anion Gap 12 (7-16); BUN/Creatinine Ratio 13 Ratio (12-20); Blood Urea Nitrogen 24 mg/dL (9-23); Calcium 8.9 mg/dL (8.3-10.6); Calcium (Corrected) 8.9 mg/dL (8.5-10.1); Carbon Dioxide 26.3 mMol/L (20.0-31.0); Chloride 99 mMol/L (98-107); Creatine Kinase 252 U/L (34-171); Creatinine (Component) 1.8 mg/dL (0.6-1.3); Estimated Creatinine Clearance 22.7 mL/min (>60); Glucose 133 mg/dL (74-106); Osmolality,Calculated 279 (275-295); Phosphorous 2.7 mg/dL (2.4-5.1); Potassium 3.5 mMol/L (3.4-5.1); Sodium 137 mMol/L (136-145); eGFR 29 See Note
[2025-04-27] MEDS: hydrALAZINE INJ 20 MG/ML VIAL 10 MG IVP (12:43)
--- NOTE | 2025-04-27 13:00 | PC.NURSE ---
1200 patient is awake, alert, breathing unlabored, TR band to right wrist with dry blood, no active bleeding or hematoma noted. Report received from Patt QUIJANO. 1230 3ml air removed, no additional air remaining in TR band, BP elevated, will give BP med then remove TR band 1243 hydralazine 10mg given IVP 1300 TR band removed to right wrist, no bleeding or hematoma noted, site covered with tegaderm and coban, report given to Patt QUIJANO
--- NOTE | 2025-04-27 14:17 | PC.SS ---
Rounding note: patient staying due to kidney injury, possible d/c tomorrow. D/c plan is home.
--- NOTE | 2025-04-27 14:19 | ESCONSULT_ITS ---
HPI Data of Consult Patient: known to practice within the last 3 years Consult date: 04/27/25 Requesting Physician: Magnus Roman MD Admitting Provider: Ángel Morales DO Attending Provider: Magnus Roman MD Primary Care Provider: Moon Loyola NP Consult Narrative Reason for consult: JOCELYN History of present illness: Mrs. Obrien is a 73-year-old female with a past medical history of CAD, PAD, hypertension, hyperlipidemia, s/p multiple abdominal surgeries, and status post dual-chamber pacemaker. The patient was admitted for NSTEMI type I on 04/25 after seeking help for chest and abdominal pain that started earlier that morning and and was described as a sharp hammer like sensation in her chest per chart review. Nephrology was consulted due to concerns of acute kidney injury. Patient is well-known to Dr. Villalba. The patient was recently discharged from the ED on 04/20 with complaints of severe low back pain and burning in her legs (L > R) with associated numbness and tingling in her legs. CT spine at that time showed L5-S1 3 mm and lumbar disc bulge with significant bilateral neural foraminal stenosis, moderate left and advanced right L5 ganglionic compression. On initial presentation to the ED on 04/25, the patient had a BUN of 12, creatinine of 1.24, and GFR of 47. Serial troponins were 1.29, 3.387, and 5.723. EKG was not concerning for ST changes. CT abdomen and pelvis showed distended gallbladder and gallbladder ultrasound showed no gallstones, but there was some wall thickening. Patient was admitted for NSTEMI type I with cardiology consultation and IV drip heparin. HIDA scan performed on 04/25 in the evening showed an abnormal gallbladder ejection fraction of 3%. Throughout hospital stay, the patient's troponin continue to rise, peaking at 8.266 on 04/26 in the AM. Echo done on 04/26 in the PM showed mild LVH, with a Takotsubo appearance, and akinesis in multiple regions of the heart. Estimated EF 25 to 30%. Cardiac catheterization was done earlier today. Lab values after cardiac catheterization show BUN 24, creatinine 1.8, GFR 29. The patient's baseline creatinine hovers around 1.2-1.3. During initial visit with the patient, the patient had a significant difficulty with communication. The patient's voice was very soft and sentences were often incomplete. It appeared that the patient was in pain, and the patient endorsed this when asked. The pain is primarily present in her upper abdomen area. Patient also endorses shortness of breath, chest pain, and chills. Patient denies fevers, headaches, cough. Patient stated that she would like her to know her condition, but had significant difficulty stating his cell phone number. Patient's sister in the room provided the patient's home phone of [phone]. Patient's ins/outs recorded as 515/0, however after discussing with nursing staff, has been noted that the patient has been going to the bathroom several times to urinate. cc:: cc: Magnus Roman MD Review of Systems Review of Systems Systems Reviewed: All systems reviewed, normal except as documented Exam Vital Signs Temp Pulse Resp BP Pulse Ox O2 Del Method O2 Flow Rate 97.8 F 86 20 133/90 H 94 L Room Air 2 04/27/25 10:37 04/27/25 13:41 04/27/25 13:41 04/27/25 13:41 04/27/25 13:41 04/27/25 13:41 04/27/25 10:45 Narrative Exam Physical Exam: General: Alert, in acute distress. Skin: Warm, dry, intact, no obvious rash. Head: Normocephalic, atraumatic. Respiratory: Respirations unlabored on room air. Gastrointestinal: Tender with guarding. Extremities: No edema, no cyanosis, no clubbing. 2+ radial pulse bilaterally, 2+ pedal pulse bilaterally. Results Labs 04/28/25 04:54 04/28/25 04:54 Labs: Short CBC 04/27/25 Range/Units 04:52 WBC 12.9 H (3.6-11.0) Thou/mm3 Hgb 13.7 (12.0-16.0) g/dL Hct 39.9 (36.0-46.0) % Plt Count 233 D (140-440) Thou/mm3 BMP 04/27/25 04/27/25 04:52 11:40 Sodium 137 137 Potassium 3.1 L D 3.5 Chloride 100 99 Carbon Dioxide 25.1 26.3 BUN 26 H 24 H Creatinine 1.9 H D 1.8 H Glucose 97 133 H Calcium 8.5 8.9 Cardiac Enzymes 04/26/25 04/26/25 04/27/25 Range/Units 14:59 20:51 02:54 Total Creatine Kinase (34-171) U/L Troponin I 6.913 H* D 6.016 H* D 4.300 H* D (0.0-0.045) ng/mL 04/27/25 04/27/25 Range/Units 08:00 11:40 Total Creatine Kinase 252 H (34-171) U/L Troponin I 3.078 H* D (0.0-0.045) ng/mL Liver Function 04/27/25 04/27/25 Range/Units 04:52 11:40 Total Bilirubin 0.4 (0.3-1.2) mg/dL AST 71 H (0-34) U/L ALT 28 (10-49) U/L Alkaline Phosphatase 85 (46-116) U/L Albumin 3.8 D 4.2 (3.4-4.8) gm/dL Quality Measures Quality Measures none Advance care planning discussed with:: patient and sibling Medications Home Medications and Allergies Home Medications ?Medication ?Instructions ?Recorded ?Confirmed ?Type folic acid 1 mg tablet 1 mg PO QDAY SUPPLEMENT #0 t abs 10/25/13 04/26/25 History levothyroxine 75 mcg tablet 75 mcg PO QDAY ##0 7 04/26/25 History (Synthroid) tiotropium bromide 18 mcg capsule 1 cap inhalation QDA Y #0 puffs 08/03/17 04/26/25 History with inhalation device (Spiriva with HandiHaler) fentanyl 50 mcg/hr transdermal 50 mcg topical Q72H 06/0404/25/25 History patch Held on 04/28/25. Instructions: Resume on 05/04/25. Hold until you follow up with your primary care provider fluoxetine 40 mg capsule (Prozac) 60 mg PO QDAY 04/26/25 History Allergies Allergy/AdvReac Type Severity Reaction Status Date / Time Cephalosporins Allergy Severe Rash Verified 04/27/25 12:09 iodine Allergy Severe RASH, HIVES Verified 04/27/25 12:09 levofloxacin Allergy Severe DESTROYS Verified 04/27/25 12:09 FEET TENDONS Penicillins Allergy Severe Rash Verified 04/27/25 12:09 Sulfa (Sulfonamide Allergy Severe Rash Verified 04/27/25 12:09 Antibiotics) cefazolin Allergy Unknown RASH, Verified 04/27/25 12:09 DIFFICULTY BREATHING Visit Medications Acetaminophen (Acetaminophen 325 Mg Tablet) 650 mg PO Q6H PRN PRN Reason: Pain 1-3 and/or Fever >100.1 Stop: 05/25/25 19:48 Atorvastatin Calcium (Atorvastatin Calcium 20 Mg Tablet) 40 mg PO HS [facility] Stop: 05/27/25 20:59 Hydromorphone HCl (Hydromorphone Inj 2 Mg/Ml Vial) 0.5 mg IVP Q4HR PRN PRN Reason: PAIN SCALE 7-10 (Severe Stop: 05/01/25 12:19 Last Admin: 04/27/25 13:15 Dose: 0.5 mg Ceftriaxone Sodium/Dextrose (Rocephin/D5w 1gm Iv Premix) 1 gm in 50 mls @ 100 mls/hr IV QDAY [facility] Stop: 05/03/25 08:59 Last Admin: 04/26/25 12:55 Dose: 100 mls/hr Sodium Chloride (Ns) 1,000 mls @ 75 mls/hr IV .[id number] [facility] Stop: 05/27/25 11:45 Levothyroxine Sodium (Levothyroxine Sodium 25 Mcg Tablet) 75 mcg PO ACBR [facility] Stop: 05/26/25 05:59 Last Admin: 04/27/25 05:17 Dose: Not Given Metoprolol Succinate (Metoprolol Succinate Xl 25 Mg Tabcr) 25 mg PO QDAY [facility] Stop: 05/27/25 08:59 Metronidazole (Metronidazole 250 Mg Tablet) 500 mg PO BID [facility] Stop: 05/03/25 08:59 Last Admin: 04/26/25 20:46 Dose: 500 mg Nitroglycerin (Nitroglycerin 0.4 Mg Subl Btl #25) 0.4 mg SL Q5MIN PRN PRN Reason: CHEST PAIN Last Admin: 04/27/25 09:13 Dose: 0.4 mg Ondansetron HCl (Ondansetron Inj 2 Mg/Ml Inj 2 Ml) 4 mg IVP Q6H PRN; Protocol PRN Reason: NAUSEA OR VOMITING Stop: 05/25/25 19:48 Last Admin: 04/27/25 08:59 Dose: 4 mg Pantoprazole Sodium (Pantoprazole Inj 40 Mg Vial) 40 mg IVP QDAY [facility] Stop: 05/26/25 08:59 Last Admin: 04/26/25 12:53 Dose: 40 mg Sennosides (Senna Tablet) 1 tab PO QDAY PRN; Protocol PRN Reason: constipation Stop: 05/25/25 19:48 Discontinued Medications Hydrocodone Bitart/Acetaminophen (Hydrocodone/Apap 10/325 Tab) 1 tab PO Q4H PRN PRN Reason: PAIN SCALE 4-6 (Moderate Stop: 04/30/25 19:48 Aspirin (Aspirin 325 Mg Tablet) 325 mg PO X1 ONE Stop: 04/25/25 15:55 Last Admin: 04/25/25 16:16 Dose: 325 mg Aspirin (Aspirin Ec 81 Mg Tabec) 81 mg PO QDAY [facility] Stop: 05/26/25 08:59 Last Admin: 04/27/25 08:10 Dose: 81 mg Atorvastatin Calcium (Atorvastatin Calcium 20 Mg Tablet) 80 mg PO HS [facility] Stop: 05/25/25 20:59 Last Admin: 04/26/25 20:45 Dose: 80 mg Clopidogrel Bisulfate (Clopidogrel Bisulfate 75 Mg Tablet) 300 mg PO X1 ONE Stop: 04/25/25 19:50 Last Admin: 04/25/25 20:49 Dose: 300 mg Clopidogrel Bisulfate (Clopidogrel Bisulfate 75 Mg Tablet) 75 mg PO QDAY [facility] Stop: 05/26/25 08:59 Last Admin: 04/27/25 08:10 Dose: 75 mg Diazepam (Diazepam 5 Mg Tablet) 5 mg PO X1 ONE Stop: 04/27/25 08:56 Last Admin: 04/27/25 08:56 Dose: 5 mg Heparin Sodium (Porcine) (Heparin Sod Inj 5000 Unit/Ml Vial) 3,500 unit 60 unit/kg (3500 unit) IV X1 ONE; Protocol Stop: 04/25/25 19:50 Last Admin: 04/25/25 23:39 Dose: 3,500 unit Hydralazine HCl (Hydralazine Inj 20 Mg/Ml Vial) 10 mg IM X1 ONE Stop: 04/27/25 11:04 Last Admin: 04/27/25 11:12 Dose: Not Given Hydralazine HCl (Hydralazine Inj 20 Mg/Ml Vial) 10 mg IV X1 ONE Stop: 04/27/25 11:04 Last Admin: 04/27/25 11:09 Dose: 10 mg Hydralazine HCl (Hydralazine Inj 20 Mg/Ml Vial) 10 mg IVP X1 ONE Stop: 04/27/25 12:40 Last Admin: 04/27/25 12:43 Dose: 10 mg Hydromorphone HCl (Hydromorphone Inj 2 Mg/Ml Vial) 0.25 mg IVP Q4HR PRN PRN Reason: Pain 7-10 Stop: 05/01/25 02:59 Sodium Chloride (Ns) 1,000 mls @ 999 mls/hr IV .Q1H1M ONE Stop: 04/25/25 15:54 Last Infusion: 04/25/25 16:38 Dose: Infused Heparin Sodium/Dextrose (Heparin In D5w Ivpb) 25,000 unit in 250 mls @ 6.967 mls/hr IV .Q24H [facility]; Protocol Stop: 05/09/25 19:59 Last Titration: 04/27/25 09:07 Dose: 0 units/kg/hr, 0 mls/hr Magnesium Sulfate (Magnesium Sulfate Ivpb) 2 gm in 50 mls @ 25 mls/hr IV X1 ONE Stop: 04/26/25 09:17 Last Admin: 04/26/25 08:29 Dose: 25 mls/hr Sodium Chloride (Ns) 1,000 mls @ 100 mls/hr IV .Q10H [facility] Stop: 05/27/25 08:08 Last Admin: 04/27/25 08:19 Dose: 100 mls/hr Metoprolol Tartrate (Metoprolol Tartrate Inj 1 Mg/Ml Amp 5 Ml) 5 mg IVP X1 ONE Stop: 04/25/25 21:00 Last Admin: 04/25/25 22:01 Dose: 5 mg Metoprolol Tartrate (Metoprolol Tartrate 25 Mg Tablet) 25 mg PO BID [facility] Stop: 05/26/25 08:59 Last Admin: 04/26/25 20:46 Dose: 25 mg Morphine Sulfate (Morphine Sulf Inj 10 Mg/Ml Vial) 2 mg IVP X1 ONE Stop: 04/25/25 14:54 Last Admin: 04/25/25 15:37 Dose: 2 mg Morphine Sulfate (Morphine Sulf Inj 10 Mg/Ml Vial) 2 mg IVP Q30M PRN PRN Reason: ABDOMINAL CRAMPING Last Admin: 04/25/25 20:49 Dose: 2 mg Morphine Sulfate (Morphine Sulf Inj 10 Mg/Ml Vial) 1 mg IVP Q6H PRN PRN Reason: PAIN SCALE 7-10 (Severe Stop: 04/30/25 19:48 Morphine Sulfate (Morphine Sulf Inj 10 Mg/Ml Vial) 2 mg IVP Q4HR PRN PRN Reason: Pain 7-10 Stop: 05/01/25 01:06 Last Admin: 04/26/25 02:05 Dose: 2 mg Morphine Sulfate (Morphine Sulf Inj 10 Mg/Ml Vial) 2 mg IVP Q4HR PRN PRN Reason: Pain 7-10 Stop: 05/01/25 04:32 Last Admin: 04/26/25 04:50 Dose: 2 mg Nitroglycerin (Nitroglycerin 0.4 Mg Subl Btl #25) 0.4 mg SL Q5MIN PRN PRN Reason: CHEST PAIN Last Admin: 04/27/25 08:44 Dose: 0.4 mg Ondansetron HCl (Ondansetron Inj 2 Mg/Ml Inj 2 Ml) 4 mg IVP X1 ONE; Protocol Stop: 04/25/25 14:54 Last Admin: 04/25/25 15:36 Dose: 4 mg Ondansetron HCl (Ondansetron Inj 2 Mg/Ml Inj 2 Ml) 4 mg IVP X1 ONE Stop: 04/27/25 13:06 Last Admin: 04/27/25 13:08 Dose: 4 mg Potassium Chloride (Potassium Chloride 20 Meq Tabcr) 40 meq PO X1 ONE Stop: 04/27/25 07:30 Last Admin: 04/27/25 08:31 Dose: 40 meq Assessment & Plan Plan Mrs. Obrien is a 73-year-old female with a past medical history of CAD, PAD, hypertension, hyperlipidemia, s/p multiple abdominal surgeries, and status post dual-chamber pacemaker. The patient was admitted for NSTEMI type I on 04/25 after seeking help for chest and abdominal pain that started earlier that morning and and was described as a sharp hammer like sensation in her chest per chart review. Nephrology was consulted due to concerns of acute kidney injury. Patient is well-known to Dr. Villalba. #JOCELYN Stage 1 #Suspected due to Takatsubo cardiomyopathy vs hypertensive emergency Peak creatinine 1.9 from baseline 1.2, which fits criteria for JOCELYN of absolute increase in serum creatinine 0.3 or higher and/or increase in serum creatinine 1.5 times baseline or higher within the past 48 hrs. The suspected cause of renal injury is due to either decreased cardiac output from Takatsubo cardiomyopathy or hypertensive emergency causing end-organ damage. In both situations, disrupted blood flow to the kidneys likely resulted in the acute kidney injury as reflected in the acute changes in renal function lab values. Currently unknown if patient is oliguric/anuric. - Continue IV hydration. - Avoid nephrotoxins. - Monitor renal panel. - Renally dosed medications. - Hold any LIDYA/ARB/diuretics. Patient was discussed with the Nephrology attending, Dr. Villalba. Thank you for allowing us to participate in the care of this patient. Jonathan Luis, PGY-1 Attending Provider Attestation/Addendum Agree with assessment and plan and finding of resident. Osvaldo Villalba MD
[2025-04-27] MEDS: cefTRIAXone/D5w 1gm IV premix 1 GM/50 ML BAG IV (15:02)
[2025-04-27 16:16] LABS: Albumin, Serum 4.1 gm/dL (3.4-4.8); Anion Gap 13 (7-16); BUN/Creatinine Ratio 15 Ratio (12-20); Blood Urea Nitrogen 24 mg/dL (9-23); Calcium 8.4 mg/dL (8.3-10.6); Calcium (Corrected) 8.4 mg/dL (8.5-10.1); Carbon Dioxide 23.7 mMol/L (20.0-31.0); Chloride 101 mMol/L (98-107); Creatinine (Component) 1.6 mg/dL (0.6-1.3); Estimated Creatinine Clearance 25.5 mL/min (>60); Glucose 163 mg/dL (74-106); Osmolality,Calculated 283 (275-295); Phosphorous 2.6 mg/dL (2.4-5.1); Potassium 3.4 mMol/L (3.4-5.1); Sodium 138 mMol/L (136-145); eGFR 33 See Note
[2025-04-27] MEDS: HYDROcodone/APAP 5/325 TABLET 1 TAB PO (19:37)
--- NOTE | 2025-04-27 20:45 | PC.NURSE ---
At the beginning of the shift, patient pressed the call light and asked the nurses if she can take her to the ER due to him no feeling well. When staff entered patient's room, patient was alone and asked nurse to take her to the ER as he is not feeling well. Staff asked were did her go and patient replied he stepped out. Staff searched the unit for the to no avail.
[2025-04-27] MEDS: SODIUM CHLORIDE 0.9% 1000 ML 1,000 ML 75 ML IV (20:51)
[2025-04-27] MEDS: ATORVASTATIN CALCIUM 20 MG TABLET 40 MG PO (20:53)
[2025-04-28] VITALS (8 sets, daily range): BP systolic 115–146; BP diastolic 67–88; PULSE 63–84; RESP 16–19; TEMP 36.1–36.8; O2SAT 94–96; BMI 25.5
[2025-04-28] MEDS: HYDROmorphone INJ 2 MG/ML VIAL 0.5 MG IVP ×5 (02:19→21:04)
[2025-04-28] MEDS: ONDANSETRON INJ 2 MG/ML INJ 2 ML 4 MG IVP ×3 (05:36→22:50)
[2025-04-28] MEDS: LEVOTHYROXINE SODIUM 25 MCG TABLET 75 MCG PO (05:36)
[2025-04-28 06:04] LABS: Basophils # (Auto) 0.0 Thou/mm3 (0.0-0.2); Basophils % (Auto) 0 % (0-2.5); Eosinophils # (Auto) 0.0 Thou/mm3 (0.0-0.5); Eosinophils % (Auto) 0 % (0-10); Hematocrit 39.1 % (36.0-46.0); Hemoglobin 13.1 g/dL (12.0-16.0); Immature Granulocytes Auto 0.06 Thou/mm3 (0.00-0.00); Lymphocytes # (Auto) 1.6 Thou/mm3 (1.0-4.8); Lymphocytes % (Auto) 13 % (10-50); Mean Corpuscular HGB Conc 33.5 g/dl (31.0-37.0); Mean Corpuscular Hemoglobin 32.5 pg (25.0-35.0); Mean Corpuscular Volume 97 fL (80-100); Monocytes # (Auto) 1.2 Thou/mm3 (0.0-0.8); Monocytes % (Auto) 10 % (0-12); Neutrophils # (Auto) 9.0 Thou/mm3 (1.8-7.7); Neutrophils % (Auto) 76 % (37-80); Nucleated Red Blood Cell # 0.00 Thou/mm3 (0.00-0.00); Nucleated Red Blood Cell % 0 /100 WBC (0); Platelet Count 229 Thou/mm3 (140-440); RDW Standard Deviation 48.3 fL (36.4-46.3); Red Blood Count 4.03 Miln/mm3 (4.00-5.20); White Blood Count 11.9 Thou/mm3 (3.6-11.0)
[2025-04-28 06:36] LABS: Alanine Aminotransferase 21 U/L (10-49); Albumin, Serum 3.6 gm/dL (3.4-4.8); Albumin/Globulin Ratio 1.6 (1.2-2.2); Alkaline Phosphatase 76 U/L (46-116); Anion Gap 14 (7-16); Aspartate Amino Transferase 50 U/L (0-34); BUN/Creatinine Ratio 13 Ratio (12-20); Bilirubin,Total 0.4 mg/dL (0.3-1.2); Blood Urea Nitrogen 19 mg/dL (9-23); Calcium 8.3 mg/dL (8.3-10.6); Calcium (Corrected) 8.6 mg/dL (8.5-10.1); Carbon Dioxide 23.4 mMol/L (20.0-31.0); Chloride 105 mMol/L (98-107); Creatinine (Component) 1.5 mg/dL (0.6-1.3); Estimated Creatinine Clearance 27.2 mL/min (>60); Globulin 2.3 gm/dL (2.3-3.5); Glucose 96 mg/dL (74-106); Magnesium 2.0 mg/dL (1.6-2.6); Osmolality,Calculated 285 (275-295); Phosphorous 3.6 mg/dL (2.4-5.1); Potassium 3.6 mMol/L (3.4-5.1); Sodium 142 mMol/L (136-145); Total Protein 5.9 gm/dL (5.7-8.2); eGFR 36 See Note
--- NOTE | 2025-04-28 07:15 | ESPR_ITS ---
<Statement entered by Magnus Roman MD - 05/07/25 14:15> I reviewed above note and agree with findings and plans. I have also personally examined the patient with medicine team and went over assessment and plan with medical team including internal recruiter and resident physician. Documentation for date of: 04/28/25 Subjective Subjective Interval history: Given [place] x 1 overnight for abdominal pain. Patient seen and examined at bedside this AM. Had bowel movement this morning at 5 AM. Continues to endorse left upper abdominal pain, radiating to back. Denies chest pain or shortness of breath. This is chronic however appears to be worse since admission. Of note patient had multiple abdominal surgeries, including hysterectomy. Has been taking strong pain medications for this so may have developed resistance, currently on Dilaudid 0.5 mg every 4 hours and acetaminophen. Patient reports that she follows Dr. Alford, will consult per her request. Labs and vitals were reviewed. WBC down trended, 11.9 today. Still on Flagyl and ceftriaxone empirically. Creatinine is downtrending, 1.5 today. Will continue to monitor. Blood pressure is 143/85 this morning, systolic 160s overnight secondary to pain and cardiomyopathy. Will continue metoprolol succinate, started on Entresto. Consider full GDMT outpatient. AST down trended to 50. Bili still within normal limits. Patient lives at home with , who patient states is not in good health at this time. Is concerned that no one can take care of her. Requested she be discharged to SNF. Review of systems otherwise negative except what is mentioned above. Exam Vital Signs Temp Pulse Resp BP Pulse Ox O2 Del Method O2 Flow Rate 97.4 F 66 17 143/85 H 94 L Room Air 2 04/28/25 04:00 04/28/25 04:00 04/28/25 04:00 04/28/25 04:00 04/28/25 04:00 04/28/25 04:00 04/27/25 10:45 Narrative Exam Physical Exam General: Awake and in no acute distress. Conversational and non-toxic appearing. HEENT: Normocephalic, atraumatic, mucous membranes moist. Heart: Regular rate and rhythm, normal S1 and S2, no murmurs appreciated. Lungs: Clear to auscultation with no wheezing or crackles. Abdomen: Soft, nondistended, positive bowel sounds. Left upper quadrant tenderness. No guarding or rebound tenderness. No CVA tenderness. Neurologic: Alert and oriented x3, no gross neurological deficit, and patient able to move all 4 extremities. Extremities: No edema. Skin: No rash or ecchymoses. Objective Labs 04/28/25 04:54 04/28/25 04:54 Labs: Laboratory Results - last 24 hr 04/27/25 04/27/25 04/27/25 08:00 11:40 15:45 WBC RBC Hgb Hct MCV MCH MCHC RDW Std Deviation Plt Count Neut % (Auto) Lymph % (Auto) [place] % (Auto) Eos % (Auto) Baso % (Auto) Neut # (Auto) Lymph # (Auto) Cass[place] # (Auto) Eos # (Auto) Baso # (Auto) Immature Gran # (Auto) Absolute Nucleated RBC Immature Gran % Nucleated RBC % Sodium 137 138 Potassium 3.5 3.4 Chloride 99 101 Carbon Dioxide 26.3 23.7 Anion Gap 12 13 BUN 24 H 24 H Creatinine 1.8 H 1.6 H Estim Creat Clear Calc 22.7 L 25.5 L eGFR 29 L 33 L BUN/Creatinine Ratio 13 15 Glucose 133 H 163 H Calculated Osmolality 279 283 Calcium 8.9 8.4 Corrected Calcium 8.9 8.4 L Phosphorus 2.7 2.6 Magnesium Total Bilirubin AST ALT Alkaline Phosphatase Total Creatine Kinase 252 H Troponin I 3.078 H* D Total Protein Albumin 4.2 4.1 Globulin Albumin/Globulin Ratio 04/28/25 04:54 WBC 11.9 H RBC 4.03 Hgb 13.1 Hct 39.1 MCV 97 MCH 32.5 MCHC 33.5 RDW Std Deviation 48.3 H Plt Count 229 Neut % (Auto) 76 Lymph % (Auto) 13 Cassia % (Auto) 10 Eos % (Auto) 0 Baso % (Auto) 0 Neut # (Auto) 9.0 H Lymph # (Auto) 1.6 Cassia # (Auto) 1.2 H Eos # (Auto) 0.0 Baso # (Auto) 0.0 Immature Gran # (Auto) 0.06 H Absolute Nucleated RBC 0.00 Immature Gran % 1 H Nucleated RBC % 0 Sodium 142 Potassium 3.6 Chloride 105 Carbon Dioxide 23.4 Anion Gap 14 BUN 19 Creatinine 1.5 H Estim Creat Clear Calc 27.2 L eGFR 36 L BUN/Creatinine Ratio 13 Glucose 96 D Calculated Osmolality 285 Calcium 8.3 Corrected Calcium 8.6 Phosphorus 3.6 Magnesium 2.0 Total Bilirubin 0.4 AST 50 H ALT 21 Alkaline Phosphatase 76 Total Creatine Kinase Troponin I Total Protein 5.9 Albumin 3.6 D Globulin 2.3 Albumin/Globulin Ratio 1.6 Quality Measures Quality Measures none Advance care planning discussed with:: patient Assessment & Plan Assessment Current Active Medications: Generic Name Dose Route Start Last Admin Trade Name Freq PRN Reason Stop Dose Admin Acetaminophen 650 mg 04/25/25 19:49 Acetaminophen 325 Mg Tablet PO 05/25/25 19:48 Q6H PRN Pain 1-3 and/or Fever >100.1 Atorvastatin Calcium 40 mg 04/27/25 21:00 04/27/25 20:53 Atorvastatin Calcium 20 Mg Tablet PO 05/27/25 20:59 40 mg HS KATI Administration Hydralazine HCl 10 mg 04/27/25 18:48 Hydralazine Inj 20 Mg/Ml Vial IVP 05/27/25 18:47 Q6HR PRN Hypertension Hydromorphone HCl 0.5 mg 04/26/25 12:20 04/28/25 02:19 Hydromorphone Inj 2 Mg/Ml Vial IVP 05/01/25 12:19 0.5 mg Q4HR PRN Administration PAIN SCALE 7-10 (Severe Ceftriaxone Sodium/Dextrose 1 gm in 50 mls @ 100 mls/hr 04/26/25 09:00 04/27/25 15:02 Rocephin/D5w 1gm Iv Premix IV 05/03/25 08:59 100 mls/hr QDAY KATI Administration Sodium Chloride 1,000 mls @ 75 mls/hr 04/27/25 11:46 04/27/25 20:51 Ns IV 05/27/25 11:45 75 mls/hr .[id number] KATI Administration Levothyroxine Sodium 75 mcg 04/26/25 06:00 04/28/25 05:36 Levothyroxine Sodium 25 Mcg Tablet PO 05/26/25 05:59 75 mcg ACBR KATI Administration Metoprolol Succinate 25 mg 04/27/25 09:00 04/27/25 14:58 Metoprolol Succinate Xl 25 Mg Tabcr PO 05/27/25 08:59 Not Given QDAY KATI Metronidazole 500 mg 04/26/25 09:00 07/11/25 20:53 Metronidazole 250 Mg Tablet PO 05/03/25 08:59 500 mg BID KATI Administration Nitroglycerin 0.4 mg 04/27/25 09:11 04/27/25 09:13 Nitroglycerin 0.4 Mg Subl Btl #25 SL 0.4 mg Q5MIN PRN Administration CHEST PAIN Ondansetron HCl 4 mg 04/25/25 19:49 04/28/25 05:36 Ondansetron Inj 2 Mg/Ml Inj 2 Ml IVP 05/25/25 19:48 4 mg Q6H PRN Administration NAUSEA OR VOMITING Protocol Pantoprazole Sodium 40 mg 04/26/25 09:00 04/27/25 15:02 Pantoprazole Inj 40 Mg Vial IVP 05/26/25 08:59 40 mg QDAY KATI Administration Sacubitril/Valsartan 1 tab 04/28/25 10:00 Sacubitril 24 Mg/Valsartan 26 Mg Tablet PO 05/28/25 09:59 BID KATI Sennosides 1 tab 04/25/25 19:49 Senna Tablet PO 05/25/25 19:48 QDAY PRN constipation Protocol Plan Patient is a 74-year-old female with a past medical history of PAD, hypertension, hyperlipidemia, bradycardia status post dual-chamber pacemaker (Biotronik), hypothyroidism, anxiety, depression, hemorrhoids, diverticulosis, chronic abdominal pain status post sigmoid colectomy in 2019 who was admitted on 04/25/25 for ACS rule out, confirmed to have Takotsubo cardiomyopathy on cardiac cath, and biliary dyskinesia per HIDA. # Takotsubo cardiomyopathy #NSTEMI type II #Pacemaker placement secondary to bradycardia #History of PAD As noted above, patient has history of vasculopathy as noted by peripheral artery disease Follows with Dr. Martinez outpatient and has had angioplasty in the past, pacemaker placement for bradycardia Presenting with chest/abdominal pain with NBA score of 98?points 4?% Probability of from admission to 6 months Presented in hypertensive emergency as noted below with troponin leak, troponin initially 1.29 increased to 3.387 increased to 5.723, BNP 501 EKG shows atrially pacemaker, left anterior fascicular block but no concerning ST changes noted. ECHO (04/26/2025): Indications: NSTEMI, Mild LVH. Takotsubo Appearance. Akinesis In The Mid to Apical Septal, Inferior, Lateral, Anterior, Anteroseptal, and [place]. Estimated EF 25-30%. Grade III DD. Severe LAE. Moderate to Severe MR. Troponin downtrended, 4.3 this morning. Cardiac cath (04/27/2025): No significant coronary lesion, most likely Takotsubo cardiomyopathy. No coronary artery disease. Plan: -Hold heparin drip -Discontinue aspirin and Plavix, no CAD -Continue metoprolol succinate daily ?cardiac diet -nitro PRN #HFrEF, EF 25-30%, likely secondary to Takosubo #Diastolic Dysfunctoion Patient presented with chief complaint of worsening chest pressure localized to the left chest and radiating to the right with jaw pain as well. BMP elevated at 501. EKG noted ejection fraction of 25 to 30%. Concern for cardiomyopathy given diastolic grade 3 dysfunction. Vascular congestion not noted. EKG noted for left anterior bundle branch block which has been present in previous EKG, sinus rhythm, possible inferior leads. BNP 501 Echo (04/26/2025): Estimated EF 25 to 30%, likely due to Takotsubo cardiomyopathy as above. Note, no previous echocardiogram available for comparison. NYHA Class: I Plan: -Cardiology consulted, appreciate recommendations -On metoprolol succinate, consider starting Entresto and spironolactone GDMT outpatient -K>4 and Mg >2 -Fluid Restriction and Sodium Restriction 2 g per day AM -Daily Weights, Strict Ins and Outs, Fluid Striction (1800 ml), Sodium Restriction 2 grams per day #JOCELYN, improving Serum creatinine 1.5 from 1.9 (baseline is 1.2). Likely secondary to decreased cardiac output from above. Also possibly secondary to hypertensive emergency on admission. ? Nephrology Dr. Villalba consulted, appreciate recommendations ? Avoid nephrotoxins ? Monitor renal panel ? Renally dose medications ? Hold LIDYA/ARB/diuretics #Biliary Dyskinesia #Intractable Abdominal Pain, chronic Pain possibly secondary to abdominal adhesions from history of extensive abdominal surgeries. Continues to endorse left sided abdominal tenderness, endorses that this is chronic since sigmoid colectomy in 2019. Per review of records patient has had at least 3/multiple abdominal surgeries, including hysterectomy. Per chart review, patient has been on fentanyl patch q72hrs and [place] daily since last year, has had multiple ER visits within the past year for pain, possible that patient is in opioid withdrawal. Patient says that she follows Dr. Alford, and requested a consult. Mild leukocytosis with a WBC of 13.3, lactic acid 2.4 but no fever or symptoms of dysuria, increased urinary frequency. U/A unremarkable. CT abdomen pelvis showed distended gallbladder, moderate renal parenchymal scar formation, mild perinephric stranding, 2 mm lower pole nonobstructing right kidney renal calculi and gallbladder ultrasound showed no gallstones but there is some wall thickening. Colonic diverticulosis, no diverticulitis. HIDA scan: Abnormal gallbladder ejection fraction, 3%, normal greater than 35%. Patient is currently not good surgical candidate given cardiomyopathy. Plan: -Continue IV ceftriaxone 1 g daily and Flagyl 500 p.o. every 12 to cover for both urinary and intra-abdominal infection ?Follow outpatient general surgery for possible cholecystectomy given that patient is not a good surgical candidate at this time -Will consult Dr. Alford per patient request ? Hydromorphone 0.5 mg every 4 hours and acetaminophen as needed for pain #Incidental prominent osteopenia, significant degenerative disc disease L2-[address] spine 04/20/25: L5-S1 3 mm and lumbar disc bulge with significant bilateral neural foraminal stenosis, moderate left and advanced right L5 ganglionic , Suspicious for discitis osteomyelitis at the L2-L3 level compression. Patient is not complaining of back pain, does not appear to be a concern at this time. ? Pain regimen as above ? Consider outpatient management #Hypertension #Hypertensive emergency (resolved) As noted above patient presented with blood pressure 189/98; given IV Lopressor 5 mg x 1 There is evidence of end organ dysfunction with a troponin leak Patient is on home antihypertensives, pending med rec Plan: ? Continue beta-jessee therapy as above ?Restart amlodipine 5 mg at bedtime ? Rest of GDMT outpatient #Hypothyroidism Chronic medical problem, pending official med rec Plan: ? Continue home dose levothyroxine #Anxiety/depression Chronic medical problem. Takes Prozac 60 mg daily. Plan: ?Restart home dose med Health Maintenance Disposition: s/p cardiac catheterization, SNF per patient request DVT prophylaxis: Heparin SQ GI prophylaxis: None needed Diet: Cardiac CODE STATUS: Full Patient plan of care was discussed with the attending physician, Dr. Jessie Mantilla, PGY-1
[2025-04-28] MEDS: SODIUM CHLORIDE 0.9% 1000 ML 1,000 ML 75 ML IV ×2 (07:22→22:07)
[2025-04-28] MEDS: cefTRIAXone/D5w 1gm IV premix 1 GM/50 ML BAG IV (08:47)
[2025-04-28] MEDS: METOPROLOL SUCCINATE XL 25 MG TABCR PO (08:47)
--- NOTE | 2025-04-28 11:30 | PC.SS ---
SS informed by Dr. Roman patient is requesting SNF placement. SS met with patient at bedside to confirm discharge plan. Patient explained no one is at home to care for her and her spouse is currently at [facility]. Patient stated she prefers [facility] SNF. Referrals to local SNFs [facility], [facility], [facility], [facility], [facility], [facility] submitted. SS informed [facility] patient is requesting their facility, acceptance is pending.
--- NOTE | 2025-04-28 12:01 | PC.PT ---
PT eval received for SNF placement per patient request. Insurance check and patient has Medicare. PT is not warranted for insurance authorization for patient to be dc to SNF. Ordering physician made aware. Will cancel PT evaluation.
[2025-04-28] MEDS: LIDOCAINE 5% 1 PATCH TOP (15:47)
--- NOTE | 2025-04-28 17:01 | PD.NEPHPROG ---
Documentation for date of: 04/28/25 Subjective Subjective Interval history: Pt is seen and examined. Pt is stable Exam Vital Signs Temp Pulse Resp BP Pulse Ox O2 Del Method O2 Flow Rate 97.7 F 63 18 123/71 95 Room Air 2 04/28/25 12:00 04/28/25 12:00 04/28/25 12:00 04/28/25 12:00 04/28/25 12:00 04/28/25 12:00 04/27/25 10:45 Narrative Exam Heart s1, s2, chest CTA anibal ext no edema Objective Labs 04/28/25 04:54 04/28/25 04:54 Labs: Laboratory Results - last 24 hr 04/28/25 04:54 WBC 11.9 H RBC 4.03 Hgb 13.1 Hct 39.1 MCV 97 MCH 32.5 MCHC 33.5 RDW Std Deviation 48.3 H Plt Count 229 Neut % (Auto) 76 Lymph % (Auto) 13 Petroleum % (Auto) 10 Eos % (Auto) 0 Baso % (Auto) 0 Neut # (Auto) 9.0 H Lymph # (Auto) 1.6 Petroleum # (Auto) 1.2 H Eos # (Auto) 0.0 Baso # (Auto) 0.0 Immature Gran # (Auto) 0.06 H Absolute Nucleated RBC 0.00 Immature Gran % 1 H Nucleated RBC % 0 Sodium 142 Potassium 3.6 Chloride 105 Carbon Dioxide 23.4 Anion Gap 14 BUN 19 Creatinine 1.5 H Estim Creat Clear Calc 27.2 L eGFR 36 L BUN/Creatinine Ratio 13 Glucose 96 D Calculated Osmolality 285 Calcium 8.3 Corrected Calcium 8.6 Phosphorus 3.6 Magnesium 2.0 Total Bilirubin 0.4 AST 50 H ALT 21 Alkaline Phosphatase 76 Total Protein 5.9 Albumin 3.6 D Globulin 2.3 Albumin/Globulin Ratio 1.6 Assessment & Plan Assessment and plan (1) Non-ST elevation [place] (NSTEMI): Status: Acute (2) Coronary artery disease: Status: Acute (3) History of permanent cardiac pacemaker placement: Status: Acute (4) Lumbar spinal stenosis: Status: Acute (5) Acute kidney injury superimposed on CKD: Status: Acute Assessment and plan: Creat is improving c/w supportive care avoid nephrotoxic meds. will monitor
--- NOTE | 2025-04-28 19:44 | PD.IMCONS ---
HPI Data of Consult Requesting Physician: Magnus Roman MD Primary Care Provider: Moon Loyola NP Consult Narrative Reason for consult: Pain abdomen nausea History of present illness: 74 years old female presented to the emergency room on 04/25/2025 with chest pain right-sided flank pain and nausea She had an elevated troponin at that point of 1.29 which is subsequently up to 4.3 She has a history of placement of a permanent cardiac pacemaker because of bradycardia peripheral artery disease requiring angioplasty hypertension hypothyroidism anxiety neurosis and depression My last consultation with her was on 05/05/2020 primary reconsult because of the abdominal pain discomfort at that time she was found to have early small bowel obstruction Workup in the emergency room and subsequent admission to the floor includes as follows CT scan of the abdomen pelvis without contrast showed distended gallbladder perinephric stranding Gallbladder ultrasound showed distended gallbladder but no stones CCK HIDA scan with ejection fraction shows ejection fraction to be 3% cc:: cc: Magnus Roman MD Review of Systems Review of Systems Systems Reviewed: All systems reviewed, normal except as documented Past Medical History Surgical History OTHER SURGICAL HX: As in the history of present illness Meds Home Medications and Allergies Home Medications ?Medication ?Instructions ?Recorded ?Confirmed ?Type folic acid 1 mg tablet 1 mg PO QDAY SUPPLEMENT #0 tabs 10/25/13 04/26/25 History levothyroxine 75 mcg tablet 75 mcg PO QDAY ##0 04/13/17 04/26/25 History (Synthroid) tiotropium bromide 18 mcg capsule 1 cap inhalation QDAY #0 puffs 08/03/17 04/26/25 History with inhalation device (Spiriva with HandiHaler) fentanyl 50 mcg/hr transdermal 50 mcg topical Q72H 06/25/18 04/25/25 History patch Held on 04/28/25. Instructions: Resume on 05/04/25. Hold until you follow up with your primary care provider fluoxetine 40 mg capsule (Prozac) 60 mg PO QDAY 02/28/19 04/26/25 History Allergies Allergy/AdvReac Type Severity Reaction Status Date / Time Cephalosporins Allergy Severe Rash Verified 04/27/25 12:09 iodine Allergy Severe RASH, HIVES Verified 04/27/25 12:09 levofloxacin Allergy Severe DESTROYS Verified 04/27/25 12:09 FEET TENDONS Penicillins Allergy Severe Rash Verified 04/27/25 12:09 Sulfa (Sulfonamide Allergy Severe Rash Verified 04/27/25 12:09 Antibiotics) cefazolin Allergy Unknown RASH, Verified 04/27/25 12:09 DIFFICULTY BREATHING Exam Vital Signs Temp Pulse Resp BP Pulse Ox O2 Del Method O2 Flow Rate 97.6 F 80 18 142/81 H 95 Room Air 2 04/28/25 16:00 04/28/25 16:00 04/28/25 16:00 04/28/25 16:00 04/28/25 16:00 04/28/25 16:00 04/27/25 10:45 Routine Respiratory Exam Comments: Normal to auscultation Routine Abdominal Exam Comments: Soft midepigastric right upper quadrant tenderness Results Labs 04/28/25 04:54 04/28/25 04:54 Labs: Short CBC 04/28/25 Range/Units 04:54 WBC 11.9 H (3.6-11.0) Thou/mm3 Hgb 13.1 (12.0-16.0) g/dL Hct 39.1 (36.0-46.0) % Plt Count 229 (140-440) Thou/mm3 BMP 04/28/25 04:54 Sodium 142 Potassium 3.6 Chloride 105 Carbon Dioxide 23.4 BUN 19 Creatinine 1.5 H Glucose 96 D Calcium 8.3 Liver Function 04/28/25 Range/Units 04:54 Total Bilirubin 0.4 (0.3-1.2) mg/dL AST 50 H (0-34) U/L ALT 21 (10-49) U/L Alkaline Phosphatase 76 (46-116) U/L Albumin 3.6 D (3.4-4.8) gm/dL Assessment and Plan Additional Assessment & Plan Additional Plan: # Pain abdomen # Nausea # Biliary dyskinesia with ejection fraction of 3% Suggestions Patient cannot eat at all she gets very nauseous Schedule esophagogastroduodenoscopy with possible biopsy possible therapeutic intervention under intravenous moderate sedation for tomorrow N.p.o. midnight tonight Ensure 1 can p.o. twice daily Will follow the patient Other medical problems include Bradycardia arrhythmias requiring permanent cardiac pacemaker Essential hypertension Peripheral vascular disease status post intervention Thank you very much for the opportunity to participate in the care of this patient
[2025-04-28] MEDS: HEPARIN SOD INJ 5000 UNIT/ML VIAL SC (21:05)
[2025-04-28] MEDS: ATORVASTATIN CALCIUM 20 MG TABLET 40 MG PO (21:07)
[2025-04-29] VITALS (15 sets, daily range): BP systolic 93–168; BP diastolic 49–113; PULSE 64–106; RESP 13–24; TEMP 36.2–37.6; O2SAT 92–98; BMI 25.5
[2025-04-29] MEDS: HYDROmorphone INJ 2 MG/ML VIAL 0.5 MG IVP ×2 (02:52→08:15)
[2025-04-29] MEDS: LEVOTHYROXINE SODIUM 25 MCG TABLET 75 MCG PO (05:08)
[2025-04-29] MEDS: ONDANSETRON INJ 2 MG/ML INJ 2 ML 4 MG IVP (05:08)
[2025-04-29 06:34] LABS: Basophils # (Auto) 0.0 Thou/mm3 (0.0-0.2); Basophils % (Auto) 0 % (0-2.5); Eosinophils # (Auto) 0.0 Thou/mm3 (0.0-0.5); Eosinophils % (Auto) 0 % (0-10); Hematocrit 34.0 % (36.0-46.0); Hemoglobin 11.3 g/dL (12.0-16.0); Immature Granulocytes Auto 0.04 Thou/mm3 (0.00-0.00); Lymphocytes # (Auto) 2.5 Thou/mm3 (1.0-4.8); Lymphocytes % (Auto) 23 % (10-50); Mean Corpuscular HGB Conc 33.2 g/dl (31.0-37.0); Mean Corpuscular Hemoglobin 33.0 pg (25.0-35.0); Mean Corpuscular Volume 99 fL (80-100); Monocytes # (Auto) 1.2 Thou/mm3 (0.0-0.8); Monocytes % (Auto) 11 % (0-12); Neutrophils # (Auto) 7.4 Thou/mm3 (1.8-7.7); Neutrophils % (Auto) 66 % (37-80); Nucleated Red Blood Cell # 0.00 Thou/mm3 (0.00-0.00); Nucleated Red Blood Cell % 0 /100 WBC (0); Platelet Count 214 Thou/mm3 (140-440); RDW Standard Deviation 50.4 fL (36.4-46.3); Red Blood Count 3.42 Miln/mm3 (4.00-5.20); White Blood Count 11.2 Thou/mm3 (3.6-11.0)
[2025-04-29 06:58] LABS: Alanine Aminotransferase 20 U/L (10-49); Albumin, Serum 3.3 gm/dL (3.4-4.8); Albumin/Globulin Ratio 1.7 (1.2-2.2); Alkaline Phosphatase 63 U/L (46-116); Anion Gap 11 (7-16); Aspartate Amino Transferase 38 U/L (0-34); BUN/Creatinine Ratio 14 Ratio (12-20); Bilirubin,Total 0.3 mg/dL (0.3-1.2); Blood Urea Nitrogen 19 mg/dL (9-23); Calcium 8.0 mg/dL (8.3-10.6); Calcium (Corrected) 8.6 mg/dL (8.5-10.1); Carbon Dioxide 22.6 mMol/L (20.0-31.0); Chloride 110 mMol/L (98-107); Creatinine (Component) 1.4 mg/dL (0.6-1.3); Estimated Creatinine Clearance 29.2 mL/min (>60); Globulin 1.9 gm/dL (2.3-3.5); Glucose 94 mg/dL (74-106); Magnesium 1.9 mg/dL (1.6-2.6); Osmolality,Calculated 289 (275-295); Phosphorous 3.1 mg/dL (2.4-5.1); Potassium 3.5 mMol/L (3.4-5.1); Sodium 144 mMol/L (136-145); Total Protein 5.2 gm/dL (5.7-8.2); eGFR 39 See Note
[2025-04-29 07:08] LABS: Creatinine,Random Urine 35 mg/dL (30-125); Protein Total, Random Urine 70 mg/dL (1-14); Sodium,Urine Random 36.2 mMol/L (20.0-110.0)
[2025-04-29] MEDS: cefTRIAXone/D5w 1gm IV premix 1 GM/50 ML BAG IV (08:15)
--- NOTE | 2025-04-29 09:04 | PC.SS ---
-PASRR Level 2 cleared and closed out with Susi DE LUNA [phone].
--- NOTE | 2025-04-29 09:32 | ESPR_ITS ---
Documentation for date of: 04/29/25 Subjective Subjective Interval history: Patient was seen and examined at bedside. A.m. vitals and labs reviewed. Patient endorsed chestpain radiating to the back. Left upper and lower abdominal pain radiating to the flank. Patient noted last pain medication did not help her and wants to increase on pain medication. Spoke to pharmacy regarding resuming patient's home fentanyl patch 25 g. Patient was receiving Dilaudid 0.5mg every 4 hours but still complained of pain. Per pharmacy patient requires 6-hour overlap with dilaudid since placing the patch for adequate pain relief. (Of note, patient received 50 g of fentanyl patch at home and [place] 10mg on top of that). She is scheduled for possible EGD today and was NPO since last midnight. Discontinued amlodipine. If patient's blood pressure increases (107/58 currently) and Cr (1.5) decreases, planning to add ACEi as her GDMT regime Currently, there is no concern for cholecystitis as she was afebrile, blood culture was negative and no RUQ pain. Will discontinue metronidazole. Based 10/26/2023 and 04/20/[address] which showed osteomyelitis discitis L2-3 level, there is suspicison for chronic osteomyelitis. Will continue IV ceftrixone 1g qd and add doxycycline 100mg PO BID. Patient cannot do MRI of lumber spine due to her pacemaker and micha put in during her colon surgery in the past Exam Vital Signs Temp Pulse Resp BP Pulse Ox O2 Del Method O2 Flow Rate 97.8 F 68 18 117/64 94 L Room Air 2 04/29/25 08:00 04/29/25 08:00 04/29/25 08:00 04/29/25 08:00 04/29/25 08:00 04/29/25 08:00 04/28/25 20:00 Narrative Exam General: Awake and in no acute distress. Conversational and non-toxic appearing. HEENT: Normocephalic, atraumatic, mucous membranes moist. Heart: Regular rate and rhythm, normal S1 and S2, no murmurs appreciated. Lungs: Clear to auscultation with no wheezing or crackles. Abdomen: Soft, nondistended, positive bowel sounds. Left upper quadrant tenderness. No guarding or rebound tenderness. No CVA tenderness. Neurologic: Alert and oriented x3, no gross neurological deficit, and patient able to move all 4 extremities. Extremities: No edema. Skin: No rash or ecchymoses. Objective Labs 04/30/25 06:08 04/30/25 06:08 Labs: Laboratory Results - last 24 hr 04/29/25 04/29/25 04:48 05:52 WBC 11.2 H RBC 3.42 L Hgb 11.3 L Hct 34.0 L MCV 99 MCH 33.0 MCHC 33.2 RDW Std Deviation 50.4 H Plt Count 214 Neut % (Auto) 66 Lymph % (Auto) 23 [place] % (Auto) 11 Eos % (Auto) 0 Baso % (Auto) 0 Neut # (Auto) 7.4 Lymph # (Auto) 2.5 [place] # (Auto) 1.2 H Eos # (Auto) 0.0 Baso # (Auto) 0.0 Immature Gran # (Auto) 0.04 H Absolute Nucleated RBC 0.00 Immature Gran % 0 Nucleated RBC % 0 Sodium 144 Potassium 3.5 Chloride 110 H Carbon Dioxide 22.6 Anion Gap 11 BUN 19 Creatinine 1.4 H Estim Creat Clear Calc 29.2 L eGFR 39 L BUN/Creatinine Ratio 14 Glucose 94 Calculated Osmolality 289 Calcium 8.0 L Corrected Calcium 8.6 Phosphorus 3.1 Magnesium 1.9 Total Bilirubin 0.3 AST 38 H ALT 20 Alkaline Phosphatase 63 Total Protein 5.2 L Albumin 3.3 L Globulin 1.9 L Albumin/Globulin Ratio 1.7 Ur Random Creatinine 35 U Random Total Protein 70 H Ur Random Sodium 36.2 Quality Measures Quality Measures none Advance care planning discussed with:: patient Assessment & Plan Assessment Current Active Medications: Generic Name Dose Route Start Last Admin Trade Name Freq PRN Reason Stop Dose Admin Acetaminophen 650 mg 04/25/25 19:49 Acetaminophen 325 Mg Tablet PO 05/25/25 19:48 Q6H PRN Pain 1-3 and/or Fever >100.1 Hydrocodone Bitart/Acetaminophen 1 tab 04/28/25 15:32 Hydrocodone/Apap 5/325 Tablet PO 05/03/25 15:31 Q4HR PRN PAIN SCALE 4-6 (Moderate Atorvastatin Calcium 40 mg 04/27/25 21:00 04/28/25 21:07 Atorvastatin Calcium 20 Mg Tablet PO 05/27/25 20:59 40 mg HS KATI Administration Fluoxetine HCl 60 mg 04/28/25 12:30 04/28/25 13:29 Fluoxetine Hcl 10 Mg Capsule PO 05/28/25 12:29 60 mg QDAY KATI Administration Heparin Sodium (Porcine) 5,000 unit 04/28/25 21:00 04/28/25 21:05 Heparin Sod Inj 5000 Unit/Ml Vial SC 05/12/25 20:59 5,000 unit Q12HR KATI Administration Hydralazine HCl 10 mg 04/27/25 18:48 Hydralazine Inj 20 Mg/Ml Vial IVP 05/27/25 18:47 Q6HR PRN Hypertension Hydromorphone HCl 0.5 mg 04/26/25 12:20 04/29/25 08:15 Hydromorphone Inj 2 Mg/Ml Vial IVP 05/01/25 12:19 0.5 mg Q4HR PRN Administration PAIN SCALE 7-10 (Severe Ceftriaxone Sodium/Dextrose 1 gm in 50 mls @ 100 mls/hr 04/26/25 09:00 04/29/25 08:15 Rocephin/D5w 1gm Iv Premix IV 05/03/25 08:59 100 mls/hr QDAY KATI Administration Sodium Chloride 1,000 mls @ 75 mls/hr 04/27/25 11:46 04/28/25 22:07 Ns IV 05/27/25 11:45 75 mls/hr .[id number] KATI Administration Levothyroxine Sodium 75 mcg 04/26/25 06:00 04/29/25 05:08 Levothyroxine Sodium 25 Mcg Tablet PO 05/26/25 05:59 75 mcg ACBR KATI Administration Metoprolol Succinate 25 mg 04/27/25 09:00 04/28/25 08:47 Metoprolol Succinate Xl 25 Mg Tabcr PO 05/27/25 08:59 25 mg QDAY KATI Administration Metronidazole 500 mg 04/26/25 09:00 04/28/25 21:10 Metronidazole 250 Mg Tablet PO 05/03/25 08:59 500 mg BID KATI Administration Nitroglycerin 0.4 mg 04/27/25 09:11 04/27/25 09:13 Nitroglycerin 0.4 Mg Subl Btl #25 SL 0.4 mg Q5MIN PRN Administration CHEST PAIN Ondansetron HCl 4 mg 04/25/25 19:49 04/29/25 05:08 Ondansetron Inj 2 Mg/Ml Inj 2 Ml IVP 05/25/25 19:48 4 mg Q6H PRN Administration NAUSEA OR VOMITING Protocol Pantoprazole Sodium 40 mg 04/26/25 09:00 04/29/25 08:14 Pantoprazole Inj 40 Mg Vial IVP 05/26/25 08:59 40 mg QDAY KATI Administration Sennosides 1 tab 04/25/25 19:49 04/29/25 05:07 Senna Tablet PO 05/25/25 19:48 1 tab QDAY PRN Administration constipation Protocol Plan Patient is a 74-year-old female with a past medical history of PAD, hypertension, hyperlipidemia, bradycardia status post dual-chamber pacemaker (Biotronik), hypothyroidism, anxiety, depression, hemorrhoids, diverticulosis, chronic abdominal pain status post sigmoid colectomy in 2019 who was admitted on 04/25/25 for ACS rule out, confirmed to have Takotsubo cardiomyopathy on cardiac cath, and biliary dyskinesia per HIDA. # Takotsubo cardiomyopathy #NSTEMI type II #Pacemaker placement secondary to bradycardia #History of PAD As noted above, patient has history of vasculopathy as noted by peripheral artery disease Follows with Dr. Martinez outpatient and has had angioplasty in the past, pacemaker placement for bradycardia Presenting with chest/abdominal pain with NBA score of 98?points 4?% Probability of from admission to 6 months Presented in hypertensive emergency as noted below with troponin leak, troponin initially 1.29 increased to 3.387 increased to 5.723, BNP 501 EKG shows atrially pacemaker, left anterior fascicular block but no concerning ST changes noted. ECHO (04/26/2025): Indications: NSTEMI, Mild LVH. Takotsubo Appearance. Akinesis In [place] Mid to Apical Septal, Inferior, Lateral, Anterior, Anteroseptal, and [place]. Estimated EF 25-30%. Grade III DD. Severe LAE. Moderate to Severe MR. Troponin downtrended, 4.3 this morning. Cardiac cath (04/27/2025): No significant coronary lesion, most likely Takotsubo cardiomyopathy. No coronary artery disease. Plan: -Hold heparin drip -Discontinue aspirin and Plavix, no CAD -Continue metoprolol succinate daily ?cardiac diet -nitro PRN #HFrEF, EF 25-30%, likely secondary to Takosubo #Diastolic Dysfunctoion Patient presented with chief complaint of worsening chest pressure localized to the left chest and radiating to the right with jaw pain as well. BMP elevated at 501. EKG noted ejection fraction of 25 to 30%. Concern for cardiomyopathy given diastolic grade 3 dysfunction. Vascular congestion not noted. EKG noted for left anterior bundle branch block which has been present in previous EKG, sinus rhythm, possible inferior leads. BNP 501 Echo (04/26/2025): Estimated EF 25 to 30%, likely due to Takotsubo cardiomyopathy as above. Note, no previous echocardiogram available for comparison. NYHA Class: I Plan: -Cardiology consulted, appreciate recommendations -On metoprolol succinate, consider starting Entresto and spironolactone GDMT outpatient -K>4 and Mg >2 -Fluid Restriction and Sodium Restriction 2 g per day AM -Daily Weights, Strict Ins and Outs, Fluid Striction (1800 ml), Sodium Restriction 2 grams per day #JOCELYN, improving Serum creatinine 1.5 from 1.9 (baseline is 1.2). Likely secondary to decreased cardiac output from above. Also possibly secondary to hypertensive emergency on admission. ? Nephrology Dr. Villalba consulted, appreciate recommendations ? Avoid nephrotoxins ? Monitor renal panel ? Renally dose medications ? Hold LIDYA/ARB/diuretics #Biliary Dyskinesia #Intractable Abdominal Pain, chronic Pain possibly secondary to abdominal adhesions from history of extensive abdominal surgeries. Continues to endorse left sided abdominal tenderness, endorses that this is chronic since sigmoid colectomy in 2019. Per review of records patient has had at least 3/multiple abdominal surgeries, including hysterectomy. Per chart review, patient has been on fentanyl patch q72hrs and [place] daily since last year, has had multiple ER visits within the past year for pain, possible that patient is in opioid withdrawal. Patient says that she follows Dr. Alford, and requested a consult. Mild leukocytosis with a WBC of 11.2, lactic acid 1.7 but no fever or symptoms of dysuria, increased urinary frequency. U/A unremarkable. CT abdomen pelvis showed distended gallbladder, moderate renal parenchymal scar formation, mild perinephric stranding, 2 mm lower pole nonobstructing right kidney renal calculi and gallbladder ultrasound showed no gallstones but there is some wall thickening. Colonic diverticulosis, no diverticulitis. HIDA scan: Abnormal gallbladder ejection fraction, 3%, normal greater than 35%. Patient is currently not good surgical candidate given cardiomyopathy. Cholecysitis is ruled out. Will discontinue antibiotics. Plan: -Discontinue Flagyl 500 p.o. ?Follow outpatient general surgery for possible cholecystectomy given that patient is not a good surgical candidate at this time -Will consult Dr. Alford per patient request ? Hydromorphone 0.5 mg every 4 hours and acetaminophen as needed for pain -Scheduled EGD today. #Incidental prominent osteopenia, significant degenerative disc disease L2-[address] spine 04/20/25: L5-S1 3 mm and lumbar disc bulge with significant bilateral neural foraminal stenosis, moderate left and advanced right L5 ganglionic , Suspicious for discitis osteomyelitis at the L2-L3 level compression. Patient is not complaining of back pain, does not appear to be a concern at this time. Based 10/26/2023 and 04/20/[address] which showed osteomyelitis discitis L2-3 level, there is suspicison for chronic osteomyelitis. Patient cannot do MRI of lumber spine due to her pacemaker and micha put in during her colon surgery in the past ? Pain regimen as above ? Consider outpatient management - Will continue IV ceftrixone 1g qd and add doxycycline 100mg PO BID. #Hypertension #Hypertensive emergency (resolved) As noted above patient presented with blood pressure 189/98; given IV Lopressor 5 mg x 1 There is evidence of end organ dysfunction with a troponin leak Patient is on home antihypertensives, pending med rec Plan: ? Continue beta-jessee therapy as above ?Discontined amlodipine 5 mg - Will Add ACEi as GDMT regime once her blood pressure increases and Cr improves. ? Rest of GDMT outpatient #Hypothyroidism Chronic medical problem, pending official med rec Plan: ? Continue home dose levothyroxine #Anxiety/depression Chronic medical problem. Takes Prozac 60 mg daily. Plan: ?Restart home dose med Health Maintenance Disposition: s/p cardiac catheterization, SNF per patient request DVT prophylaxis: Heparin SQ GI prophylaxis: None needed Diet: Cardiac CODE STATUS: Full Assessment and plan discussed with my attending physician Dr. Kenny Beltran (PGY-1)- Internal medicine resident Attending Provider Attestation/Addendum Janis Rosales DO, attest that I was physically present for the posey portions of the service and evaluated the patient with the resident and I reviewed and discussed the case with the resident and agree with the resident's findings and plans of care as documented above Patient seen and eval this a.m. No acute events overnight. She continues to complain of abdominal pain and flank pain. Upon further evaluation of chart, patient had a CT lumbar spine that showed possible discitis/osteomyelitis of L2 -L3. This was also seen in a scan in October. 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 She had been ordered MRIs in the past, but patient had micha in her abdomen and has pacemaker leads that are not MRI compatible. It is unclear if patient was treated for her osteomyelitis/discitis. CRP ESR is otherwise within normal limits. There is low suspicion for osteomyelitis, but due to repeat findings, will place patient on doxycycline and Rocephin at this time. Will follow-up with records from [facility] regarding treatment of her L2-L3 discitis. Patient would ultimately need a bone biopsy for definitive diagnosis. Patient is pending endoscopy due to her abdominal pain. Due to low suspicion for colitis and cholecystitis, her antibiotics for anaerobic coverage has been discontinued.
--- NOTE | 2025-04-29 11:24 | ESPR_ITS ---
Documentation for date of: 04/29/25 Subjective Subjective Interval history: c/o of nausea no significant CAD Takotsubo cardiomyopathy optimize heart failure meds d/c amlodipine add lisinopril 10 mg/ aldactone 25 mg Exam Vital Signs Temp Pulse Resp BP Pulse Ox O2 Del Method O2 Flow Rate 97.8 F 68 18 117/64 94 L Room Air 2 04/29/25 08:00 04/29/25 10:20 04/29/25 08:00 04/29/25 10:20 04/29/25 08:00 04/29/25 08:00 04/28/25 20:00 Routine HEENT Exam Head: Present normocephalic and atraumatic Eye: Present EOMI and PERRL ENT: Present mucous membranes moist Routine Neck Exam Neck: Present supple and trachea midline Routine Respiratory Exam Respiratory: Present chest non-tender, lungs clear, normal breath sounds and no resp distress Routine Cardiovascular Exam Cardiovascular: Present RRR Routine Abdominal Exam Abdominal: Present soft and normoactive bowel sounds Routine Extremities Exam Extremities: Present full ROM Routine Skin Exam Skin: Present intact, dry and warm Routine Neurological Exam Neurological: Present alert, oriented X3 and CN II-XII intact Routine Psychiatric Exam Psychiatric: Present normal affect and normal thought process Objective Labs 04/29/25 05:52 04/29/25 05:52 Labs: Laboratory Results - last 24 hr 04/29/25 04/29/25 04:48 05:52 WBC 11.2 H RBC 3.42 L Hgb 11.3 L Hct 34.0 L MCV 99 MCH 33.0 MCHC 33.2 RDW Std Deviation 50.4 H Plt Count 214 Neut % (Auto) 66 Lymph % (Auto) 23 [place] % (Auto) 11 Eos % (Auto) 0 Baso % (Auto) 0 Neut # (Auto) 7.4 Lymph # (Auto) 2.5 [place] # (Auto) 1.2 H Eos # (Auto) 0.0 Baso # (Auto) 0.0 Immature Gran # (Auto) 0.04 H Absolute Nucleated RBC 0.00 Immature Gran % 0 Nucleated RBC % 0 Sodium 144 Potassium 3.5 Chloride 110 H Carbon Dioxide 22.6 Anion Gap 11 BUN 19 Creatinine 1.4 H Estim Creat Clear Calc 29.2 L eGFR 39 L BUN/Creatinine Ratio 14 Glucose 94 Calculated Osmolality 289 Calcium 8.0 L Corrected Calcium 8.6 Phosphorus 3.1 Magnesium 1.9 Total Bilirubin 0.3 AST 38 H ALT 20 Alkaline Phosphatase 63 Total Protein 5.2 L Albumin 3.3 L Globulin 1.9 L Albumin/Globulin Ratio 1.7 Ur Random Creatinine 35 U Random Total Protein 70 H Ur Random Sodium 36.2 Assessment & Plan A&P Narrative continue heart failure meds d/c amlodipine and start ACEI Time Spent With Patient Time: Total time spent is greater than 50% in coordination of care (as documented) at patient's floor/unit and/or counseling patient:
[2025-04-29] MEDS: fentaNYL 25 mCg TRANSDERMAL PATCH TOP (12:25)
[2025-04-29] MEDS: HYDROcodone/APAP 5/325 TABLET 1 TAB PO (14:10)
--- NOTE | 2025-04-29 15:45 | SUR.PHASEI ---
received pt and report from SAMM Call. Pt sedated but arousable to voice, vss stable, no distress noted, abd soft and non tender on palpation. IV x2 in place to right upper ext, no s/s of infiltration or redness to sites.
--- NOTE | 2025-04-29 15:58 | SUR.PHASEI ---
pt's vss remain stable, pt drowsy but arousable to voice, no distress noted.
--- NOTE | 2025-04-29 16:05 | SUR.PHASEI ---
pt recovering well, no distress noted. VSS. IV x2 remain free of s/s of infiltration or redness. pt slightly drowsy, arousable to voice, follow commands. report given to annalisa Mcdaniel
[2025-04-29] MEDS: HYDROmorphone INJ 2 MG/ML VIAL 1 MG IVP (17:54)
[2025-04-29] MEDS: SODIUM CHLORIDE 0.9% 1000 ML 1,000 ML 75 ML IV (18:04)
--- NOTE | 2025-04-29 18:27 | XR_ITS ---
Examination: Abdomen AP single view Technique: AP portable supine abdomen, single view Exam date and time: April 29, 2025, 1834 hours INDICATIONS: Abdominal pain today. FINDINGS: Moderate air and stool throughout the colon. No obstruction. No free air Surgical clips right abdomen IMPRESSION: Nonobstructive bowel gas pattern
--- NOTE | 2025-04-29 18:27 | EKG_ITS ---
[facility] Test Date: 2025-04-29 Pat Name: APRIL ESPINOSA Department: Room: S261A Gender: Female Pilot: EFRAÍNJENNIFER : 1950 Requested By: Alan Madrid Order Number: [id number] Reading MD: Alan Madrid Measurements Intervals [place] Rate: 76 P: 245 MD: 163 QRS: 116 QRSD: 130 T: 165 QT: 451 QTc: 508 Interpretive Statements ELECTRONIC ATRIAL PACEMAKER POSSIBLE INFERIOR MYOCARDIAL INFARCTION , PROBABLY OLD WITH POSTERIOR EXTENSION MODERATE T-WAVE ABNORMALITY, CONSIDER ANTEROLATERAL ISCHEMIA Compared to ECG 04/27/2025 08:50:43 Myocardial infarct finding now present T-wave abnormality now present Possible ischemia now present Left-axis deviation no longer present Left ventricular hypertrophy no longer present ST (T wave) deviation no longer present /store/S0/[id number]/ecg/[id number].pdf
[2025-04-29] MEDS: FAMOTIDINE INJ 10 MG/ML VIAL 2 ML 40 MG IVP (18:44)
[2025-04-29] MEDS: MG HYD/AL HYD/SIME (Maalox Reg) SUSP 30 ML UDC PO (18:45)
[2025-04-29] MEDS: DOXYCYCLINE 100 MG TABLET PO (20:14)
[2025-04-29] MEDS: SIMETHICONE 80 MG CHEW PO (20:14)
[2025-04-29] MEDS: ATORVASTATIN CALCIUM 20 MG TABLET 40 MG PO (20:14)
[2025-04-29] MEDS: HEPARIN SOD INJ 5000 UNIT/ML VIAL SC (20:19)
[2025-04-30] VITALS (7 sets, daily range): BP systolic 97–138; BP diastolic 54–84; PULSE 68–97; RESP 16–20; TEMP 36.2–36.6; O2SAT 90–99; BMI 25.5
[2025-04-30] MEDS: HYDROcodone/APAP 5/325 TABLET 1 TAB PO ×3 (00:23→09:54)
[2025-04-30] MEDS: LEVOTHYROXINE SODIUM 25 MCG TABLET 75 MCG PO (05:18)
[2025-04-30 06:41] LABS: Basophils # (Auto) 0.1 Thou/mm3 (0.0-0.2); Basophils % (Auto) 1 % (0-2.5); Eosinophils # (Auto) 0.2 Thou/mm3 (0.0-0.5); Eosinophils % (Auto) 2 % (0-10); Hematocrit 30.6 % (36.0-46.0); Hemoglobin 10.1 g/dL (12.0-16.0); Immature Granulocytes Auto 0.03 Thou/mm3 (0.00-0.00); Lymphocytes # (Auto) 2.3 Thou/mm3 (1.0-4.8); Lymphocytes % (Auto) 26 % (10-50); Mean Corpuscular HGB Conc 33.0 g/dl (31.0-37.0); Mean Corpuscular Hemoglobin 33.1 pg (25.0-35.0); Mean Corpuscular Volume 100 fL (80-100); Monocytes # (Auto) 1.1 Thou/mm3 (0.0-0.8); Monocytes % (Auto) 13 % (0-12); Neutrophils # (Auto) 5.1 Thou/mm3 (1.8-7.7); Neutrophils % (Auto) 58 % (37-80); Nucleated Red Blood Cell # 0.00 Thou/mm3 (0.00-0.00); Nucleated Red Blood Cell % 0 /100 WBC (0); Platelet Count 218 Thou/mm3 (140-440); RDW Standard Deviation 51.7 fL (36.4-46.3); Red Blood Count 3.05 Miln/mm3 (4.00-5.20); White Blood Count 8.7 Thou/mm3 (3.6-11.0)
[2025-04-30 07:06] LABS: Alanine Aminotransferase 19 U/L (10-49); Albumin, Serum 2.9 gm/dL (3.4-4.8); Albumin/Globulin Ratio 1.5 (1.2-2.2); Alkaline Phosphatase 58 U/L (46-116); Anion Gap 11 (7-16); Aspartate Amino Transferase 39 U/L (0-34); BUN/Creatinine Ratio 13 Ratio (12-20); Bilirubin,Total 0.2 mg/dL (0.3-1.2); Blood Urea Nitrogen 18 mg/dL (9-23); Calcium 7.8 mg/dL (8.3-10.6); Calcium (Corrected) 8.7 mg/dL (8.5-10.1); Carbon Dioxide 24.5 mMol/L (20.0-31.0); Chloride 112 mMol/L (98-107); Creatinine (Component) 1.4 mg/dL (0.6-1.3); Estimated Creatinine Clearance 29.2 mL/min (>60); Globulin 1.9 gm/dL (2.3-3.5); Glucose 88 mg/dL (74-106); Magnesium 1.4 mg/dL (1.6-2.6); Osmolality,Calculated 293 (275-295); Phosphorous 2.6 mg/dL (2.4-5.1); Potassium 3.8 mMol/L (3.4-5.1); Sodium 147 mMol/L (136-145); Total Protein 4.8 gm/dL (5.7-8.2); eGFR 39 See Note
[2025-04-30] MEDS: Magnesium Sulfate 2 GM Ivpb 2 GM/50 ML BAG IV (07:49)
[2025-04-30] MEDS: METOPROLOL SUCCINATE XL 25 MG TABCR PO (08:04)
[2025-04-30] MEDS: DOXYCYCLINE 100 MG TABLET PO (08:04)
[2025-04-30] MEDS: SPIRONOLACTONE 25 MG TABLET PO (08:06)
[2025-04-30] MEDS: HEPARIN SOD INJ 5000 UNIT/ML VIAL SC (08:10)
[2025-04-30] MEDS: cefTRIAXone/D5w 1gm IV premix 1 GM/50 ML BAG IV (08:20)
--- NOTE | 2025-04-30 08:41 | PC.SS ---
Update: Plan is to d/c the patient today.
--- NOTE | 2025-04-30 08:53 | PC.SS ---
Addendum entered and electronically signed by ERNESTINE Marroquin 04/30/25 08:55: ERNESTINE confirmed with bedside nurse that patient can transport via wheelchair. Patient will require transport upon discharge. Original Note: ERNESTINE confirmed with patient that preferred SNF is [facility].
--- NOTE | 2025-04-30 09:23 | PD.RESPRO ---
Documentation for date of: 04/30/25 Exam Vital Signs Temp Pulse Resp BP Pulse Ox O2 Del Method O2 Flow Rate 97.4 F 68 17 97/54 L 95 Room Air 3 04/30/25 04:00 04/30/25 08:35 04/30/25 04:00 04/30/25 08:35 04/30/25 04:00 04/30/25 04:00 04/29/25 20:00 Objective Labs 04/30/25 06:08 04/30/25 06:08 Labs: Laboratory Results - last 24 hr 04/30/25 06:08 WBC 8.7 RBC 3.05 L Hgb 10.1 L Hct 30.6 L MCV 100 MCH 33.1 MCHC 33.0 RDW Std Deviation 51.7 H Plt Count 218 Neut % (Auto) 58 Lymph % (Auto) 26 [place] % (Auto) 13 H Eos % (Auto) 2 Baso % (Auto) 1 Neut # (Auto) 5.1 Lymph # (Auto) 2.3 [place] # (Auto) 1.1 H Eos # (Auto) 0.2 Baso # (Auto) 0.1 Immature Gran # (Auto) 0.03 H Absolute Nucleated RBC 0.00 Immature Gran % 0 Nucleated RBC % 0 Sodium 147 H Potassium 3.8 Chloride 112 H Carbon Dioxide 24.5 Anion Gap 11 BUN 18 Creatinine 1.4 H Estim Creat Clear Calc 29.2 L eGFR 39 L BUN/Creatinine Ratio 13 Glucose 88 Calculated Osmolality 293 Calcium 7.8 L Corrected Calcium 8.7 Phosphorus 2.6 Magnesium 1.4 L Total Bilirubin 0.2 L AST 39 H ALT 19 Alkaline Phosphatase 58 Total Protein 4.8 L Albumin 2.9 L Globulin 1.9 L Albumin/Globulin Ratio 1.5 Quality Measures Quality Measures none Assessment & Plan Assessment Current Active Medications: Generic Name Dose Route Start Last Admin Trade Name Freq PRN Reason Stop Dose Admin Acetaminophen 650 mg 04/25/25 19:49 Acetaminophen 325 Mg Tablet PO 05/25/25 19:48 Q6H PRN Pain 1-3 and/or Fever >100.1 Hydrocodone Bitart/Acetaminophen 1 tab 04/29/25 12:29 04/30/25 05:18 Hydrocodone/Apap 5/325 Tablet PO 05/03/25 15:31 1 tab Q4HR PRN Administration BREAKTHROUGH PAIN (SEVERE) Atorvastatin Calcium 40 mg 04/27/25 21:00 04/29/25 20:14 Atorvastatin Calcium 20 Mg Tablet PO 05/27/25 20:59 40 mg HS KATI Administration Doxycycline Hyclate 100 mg 04/29/25 12:45 04/30/25 08:04 Doxycycline 100 Mg Tablet PO 05/06/25 12:44 100 mg BID KATI Administration Fentanyl 25 mcg 04/29/25 11:45 04/29/25 12:25 Fentanyl 25 Mcg Transdermal Patch TOP 05/04/25 11:44 25 mcg Q72H KATI Administration Fluoxetine HCl 60 mg 04/28/25 12:30 04/30/25 08:06 Fluoxetine Hcl 10 Mg Capsule PO 05/28/25 12:29 60 mg QDAY KATI Administration Heparin Sodium (Porcine) 5,000 unit 04/28/25 21:00 04/30/25 08:10 Heparin Sod Inj 5000 Unit/Ml Vial SC 05/12/25 20:59 5,000 unit Q12HR KATI Administration Hydralazine HCl 10 mg 04/27/25 18:48 Hydralazine Inj 20 Mg/Ml Vial IVP 05/27/25 18:47 Q6HR PRN Hypertension Ceftriaxone Sodium/Dextrose 1 gm in 50 mls @ 100 mls/hr 04/26/25 09:00 04/30/25 08:20 Rocephin/D5w 1gm Iv Premix IV 05/03/25 08:59 100 mls/hr QDAY KATI Administration Naloxone HCl 2 mg/ Dextrose 500 mls @ 10 mls/hr 04/29/25 17:23 IV 05/29/25 17:29 .Q24H PRN overdose Levothyroxine Sodium 75 mcg 04/26/25 06:00 04/30/25 05:18 Levothyroxine Sodium 25 Mcg Tablet PO 05/26/25 05:59 75 mcg ACBR KATI Administration Lisinopril 10 mg 04/30/25 09:00 04/30/25 08:35 Lisinopril 2.5 Mg Tablet PO 05/30/25 08:59 10 mg QDAY KATI Administration Metoprolol Succinate 25 mg 04/27/25 09:00 04/30/25 08:04 Metoprolol Succinate Xl 25 Mg Tabcr PO 05/27/25 08:59 25 mg QDAY KATI Administration Nitroglycerin 0.4 mg 04/27/25 09:11 04/27/25 09:13 Nitroglycerin 0.4 Mg Subl Btl #25 SL 0.4 mg Q5MIN PRN Administration CHEST PAIN Ondansetron HCl 4 mg 04/30/25 07:37 Ondansetron Odt 4 Mg Tabrap PO 05/30/25 07:36 Q4HR PRN NAUSEA OR VOMITING Protocol Pantoprazole Sodium 40 mg 04/29/25 21:00 04/30/25 08:07 Pantoprazole Inj 40 Mg Vial IVP 05/29/25 20:59 40 mg BID KATI Administration Sennosides 1 tab 04/25/25 19:49 04/29/25 05:07 Senna Tablet PO 05/25/25 19:48 1 tab QDAY PRN Administration constipation Protocol Simethicone 80 mg 04/29/25 18:43 Simethicone 80 Mg Chew PO 05/29/25 18:42 QID PRN GAS Spironolactone 25 mg 04/30/25 09:00 04/30/25 08:06 Spironolactone 25 Mg Tablet PO 05/30/25 08:59 25 mg QDAY KATI Administration Ursodiol 300 mg 04/30/25 08:00 04/30/25 08:31 Ursodiol 300 Mg Capsule PO 05/30/25 07:59 300 mg BIDWM KATI Administration
--- NOTE | 2025-04-30 09:33 | PC.SS ---
PASSR submitted to [employer] via [employer]. SNF unable to retrieve record via file exchange.
--- NOTE | 2025-04-30 09:46 | ESDS_ITS ---
<Statement entered by Magnus Roman MD - 05/07/25 14:16> I reviewed above note and agree with findings and plans. I have also personally examined the patient with medicine team and went over assessment and plan with medical team including wireless internet installer and resident physician. Planned Discharge Date 04/30/25 DS: Providers Provider Date of admission: 04/25/25 19:49 Primary care physician: Moon Loyola NP Admitting Provider: Ángel Morales DO Attending Provider on Admission: Magnus Roman MD Consults: 04/25/25 19:22 Consult to Cardiology Stat Comment: Consulting Provider: Igor Martinez Instructions: admit patient by hospitalist 04/27/25 07:29 Consult to Nephrology Urgent Comment: Consulting Provider: Osvaldo Villalba 04/28/25 11:27 Consult to Gastroenterology Routine Comment: Hx chronic abdominal pain, sigmoid colectomy Consulting Provider: Donta Alford Attending Provider on DC: RESIDENT Ryan Discharging Provider: RESIDENT Ryan DS: Diagnosis Problem List Completed Was Problem List Reviewed/Reconciled?: Yes Hospital Course Hospital Course Hospital course: summary: Patient is a 74-year-old female with a past medical history of PAD, hypertension, hyperlipidemia, bradycardia status post dual-chamber pacemaker (Biotronik), hypothyroidism, anxiety, depression, hemorrhoids, diverticulosis, chronic abdominal pain status post sigmoid colectomy in 2019 who was admitted on 04/25/25 for ACS rule out, no CAD noted on cath, with New diagnosis of CHF HFrEF 25 to 30%, diastolic dysfunction grade III, Takotsubo appearance, and subsequently diagnosed with esophageal ulcers, biliary dyskinesia, and chronic osteomyelitits. ED course: In the ED, patient presented in hypertensive emergency blood pressure 189/98, heart rate of 69, respiratory 18, afebrile satting 99 on room air. Pertinent lab findings include WBC of 13.3, hemoglobin 14, BUN 12, creatinine 1.24 glucose 141, lactic acid 2.4 magnesium 2.4, AST 100, ALT 32, troponin initially 1.29 increased to 3.387 increased to 5.723, BNP 501, TSH 2.74. Urinalysis shows no signs of urinary tract infection. EKG shows atrially pacemaker, left anterior fascicular block but no concerning ST changes noted. CT abdomen pelvis showed distended gallbladder, moderate renal parenchymal scar formation, mild perinephric stranding, 2 mm lower pole nonobstructing right kidney renal calculi and gallbladder ultrasound showed no gallstones but there is some wall thickening. Hospital Course: Patient was admitted for ACS rule out, cardiology was consulted, he was started on aspirin and Plavix given history of PAD. Echo showed (04/26/2025) normal LV size. Takotsubo appearance, kidney CS in the mild to apical septal inferior lateral and anterior, anterior septal and apex. Estimate ejection fraction 25 to 30%, grade 3 diastolic dysfunction. Cardiac catheterization on 04/27/2025) showed no significant coronary lesions. Aspirin and Plavix DC'd, per cardiology recommendations. Patient was started on guideline directed medical treatment, metoprolol 25 succinate p.o. daily, lisinopril 10 mg daily, and spironolactone 25 mg daily. Continue to work towards guideline directed medical treatment as outpatient including adding Entresto if blood pressure permits. Follow-up with Dr. Freida sewell. Patient evaluated follow-up in [place], nephrology consulted?Dr. Fox. Upon discharge creatinine improved to 1.4. Follow-up for possible CKD. Patient complaining of diffuse abdominal tenderness, localized more towards the left lower quadrant. Patient started on IV antibiotics with Metronidazole. CT abdomen unremarkable. Gallbladder ultrasound noted for possible cholecystolithiasis. HIDA ordered noted to show abnormal gallbladder ejection fraction of 3%. Dr. Alford consulted. EGD (04/29/2025) showed esophageal ulcers, multiple crated ulcers, esophagitis, and gastritits. Started patient on ursodiol 300 mg twice daily, zofran, and protonix 40 mg PO BID. Small bowel obstruction ruled out with KUB. Concern for chronic ostemyelitis as noted on lumbar spine CT on previous admission. Based on 10/26/2023 and 04/20/[address] which showed osteomyelitis discitis L2-3 level, there was suspicison for chronic osteomyelitis. Given history of chronic osteomyelitits, patient was discharged on Augmentin and Doxycycline for 6 weeks PO. #Takotsubo cardiomyopathy #NSTEMI type II #Pacemaker placement secondary to bradycardia #History of PAD #CAD, ruled out. #Chronic osteomyelitis discitis L2-3 level #HFrEF, EF 25-30%, likely secondary to Takosubo #Diastolic Dysfunction #JOCELYN, improving #Biliary Dyskinesia #Intractable Abdominal Pain, chronic #Hypertension #Hypertensive emergency (resolved) #Hypothyroidism #Anxiety/depression Instructions: -New medication Lisinopril and Metoprolol for heart failure , Protonix 40 twice daily for esophageal ulcers, zofran sublingual as needed for nausea, Ursodiol 300mg twice daily with meals for biliary dyskinesia. Also prescribed Antibiotic doxycyline & Augmentin for possible chronic osteomyelitis seen on CT, please arrange for infectious disease specialist referral -Please follow up with Hot Dipper dr Alford and waistband setter lockstitch Dr Martinez within 1 - 2 week sof discharge from hospital. Follow up with your Pain clinic in [place] for pain regimen. -continue all medication as prescribed -please limit total water intake to 2 liters a day and limit salt intake to less than 2 grams per day -Stop Aspirin and Plavix -Please follow up with your presser first, Dr. Canela, within one week of discharge from hospital. -Please follow up with your primary care provider within one week of discharge -Stable for discharge to [facility], [facility]. -If your symptoms worsen,please seek immediate medical attention and return to your nearest emergency room -If you do not have a primary care provider, you may follow up at the [facility] at [facility] [address], [place] [address], Safe to discharge to SNF Assessment and plan discussed with my attending physician Dr. Roman and Dr. Mcmullen (PGY-2) Dr. Beltran (PGY-1)- Internal medicine resident - The patient's plan was discussed with attending Dr. Benedict Mcmullen MD PGY2 Internal Medicine Time Spent with Patient Time attestation: Total time spent providing and/or coordinating discharge services: Time spent: Greater than 30 minutes Exam Vital Signs Temp Pulse Resp BP Pulse Ox O2 Del Method O2 Flow Rate 97.4 F 68 17 97/54 L 95 Room Air 3 04/30/25 04:00 04/30/25 08:35 04/30/25 04:00 04/30/25 08:35 04/30/25 04:00 04/30/25 04:00 04/29/25 20:00 Narrative Exam General: Awake and in no acute distress. Conversational and non-toxic appearing. HEENT: Normocephalic, atraumatic, mucous membranes moist. Heart: Regular rate and rhythm, normal S1 and S2, no murmurs appreciated. Lungs: Clear to auscultation with no wheezing or crackles. Abdomen: Soft, nondistended, positive bowel sounds. Left upper quadrant tenderness. No guarding or rebound tenderness. No CVA tenderness. Neurologic: Alert and oriented x3, no gross neurological deficit, and patient able to move all 4 extremities. Extremities: No edema. Skin: No rash or ecchymoses. Discharge Plan Plan Patient Disposition: Xfer Skilled Nsg Fac ([facility]) Patient condition on transfer: Stable Care Plan Goals: Instructions: -New medication Lisinopril and Metoprolol for heart failure , Protonix 40 twice daily for esophageal ulcers, zofran sublingual as needed for nausea, Ursodiol 300mg twice daily with meals for biliary dyskinesia. Also prescribed Antibiotic doxycyline & Augmentin for possible chronic discitis seen on CT, please arrange for infectious disease specialist referral , Please follow up with Hot Di[facility] dr Alford and waistband setter lockstitch Dr Martinez within 1 - 2 week sof discharge from hospital. Follow up with your Pain clinic in [place] for pain regimen. -continue all medication as prescribed -please limit total water intake to 2 liters a day and limit salt intake to less than 2 grams per day -Stop Aspirin and Plavix -Please follow up with your presser first, Dr. Canela, within one week of discharge from hospital. -Please follow up with your primary care provider within one week of discharge -Stable for discharge to [facility]. -If your symptoms worsen,please seek immediate medical attention and return to your nearest emergency room -If you do not have a primary care provider, you [facility] [address], [place] [address], Prescriptions/Referrals Prescriptions/Med Rec: New metoprolol succinate 25 mg Tablet Extended Release 24 Hr 25 mg PO QDAY 30 Days Qty: 30 0RF atorvastatin 40 mg tablet 40 mg PO QPM 30 Days Qty: 30 1RF ursodiol 300 mg capsule 300 mg PO BID Qty: 60 0RF lisinopril 10 mg tablet 10 mg PO QDAY Qty: 30 0RF pantoprazole [Protonix] 40 mg tablet,delayed release (DR/EC) 40 mg PO BID Qty: 60 0RF ondansetron 4 mg tablet,disintegrating 4 mg PO Q4HR PRN (Reason: nausea and vomiting) Qty: 60 0RF Rx Instructions: SUBLINGUAL USE for nausea spironolactone 25 mg tablet 25 mg PO QDAY Qty: 30 0RF doxycycline monohydrate 100 mg capsule 100 mg PO BID 41 Days Qty: 82 0RF amoxicillin-pot clavulanate [Augmentin] 500-125 mg tablet 1 tab PO BID 42 Days Qty: 84 0RF Continued folic acid 1 MG tablet 1 mg PO QDAY Qty: 0 levothyroxine [Synthroid] 75 mcg Tablet 75 mcg PO QDAY Qty: 0 tiotropium bromide [Spiriva with HandiHaler] 18 mcg Capsule, W/Inhalation Device 1 cap INHALATION QDAY Qty: 0 fentanyl 50 mcg/hr Patch 72 Hour 50 mcg Topical Q72H fluoxetine [Prozac] 40 mg Capsule 60 mg PO QDAY hydrocodone-acetaminophen 10-325 mg tablet 1 tab PO Q6H MDD 4 PRN (Reason: pain) Qty: 20 0RF Discontinued hydrocodone-acetaminophen 10-325 mg Tablet 1 tab PO Q6H PRN (Reason: Pain) Qty: 180 amlodipine 10 mg tablet 5 mg PO QDAY ergocalciferol (vitamin D2) [Drisdol] 1,250 mcg (50,000 unit) Capsule 1,250 mcg PO QMONTH clindamycin HCl 300 mg capsule 300 mg PO Q6H Qty: 30 0RF Referrals: Gilberto Lazaro MD [Physician] - Moon Loyola NP [Primary Care Provider] - Osvaldo Villalba MD [Physician] - Donta Alford MD [Physician] - Igor Martinez MD [Physician] - Patient/Caregiver Discharge Instructions Education Materials: Abdominal Pain, CHF Ch Print Language: Croatian Stand Alone Forms: [place] Award Info., Patient Portal Info Letter Discharge Order Discharge Orders: Discharge (Routine); Ordered 04/30/25 Ordered By: Helena Mcmullen Quality Discharge Quality Measures VTE prophylaxis
--- NOTE | 2025-04-30 10:23 | PD.RESPRO ---
Documentation for date of: 04/30/25 Subjective Subjective Interval history: Overnight events: No acute events overnight Patient was seen and examined at bedside. AM vitals and labs reviewed. BUN 18, creatinine 1.4, GFR 39. Ins/outs 1282/600. Patient is currently on ceftriaxone and doxycycline for suspicion of chronic osteomyelitis. GI was consulted, EGD was performed which showed multiple esophageal ulcers, esophagitis, gastritis. GI recommended follow-up outpatient and starting ursodiol 300 mg twice daily to improve biliary dyskinesia. During today's visit the patient seemed much improved. The patient stated that her pain is much more controlled, but still significant. The patient states that Dilaudid seem to have helped her the most and both her abdominal pain and seemingly lower extremity neuropathy. According to the patient, her abdominal pain was so severe for the past 2 weeks that she has been screaming for hours on certain days. She notes that her abdominal pain is primarily on the left side and goes towards her back. She has no pain reported on the right side of her abdomen. The patient also denotes a water like feeling down her legs, and follows with an outpatient neurologist for this, but has noted that gabapentin and pregabalin in the past made her too anxious for continuous use. Discharge planning for today. Agree with starting lisinopril 10 mg daily. Review of systems otherwise negative except for what is mentioned above. Exam Vital Signs Temp Pulse Resp BP Pulse Ox O2 Del Method O2 Flow Rate 97.4 F 68 17 97/54 L 95 Room Air 3 04/30/25 04:00 04/30/25 08:35 04/30/25 04:00 04/30/25 08:35 04/30/25 04:00 04/30/25 04:00 04/29/25 20:00 Narrative Exam Physical Exam: General: Alert, no acute distress. Soft voice. Skin: Warm, dry, intact, no obvious rash. Head: Normocephalic, atraumatic. Eye: Normal conjunctiva, PERRL. Cardiovascular: Regular rate and rhythm, no murmur, +S1/S2. Respiratory: Lungs are clear to auscultation, respirations unlabored, no crackles, no wheezing. Gastrointestinal: Soft, tender on LUQ and LLQ, non-distended. Guarding on RLQ, LUQ, and LLQ, no rebound tenderness. Extremities: No edema, no cyanosis, no clubbing. 2+ radial pulse bilaterally, 2+ pedal pulse bilaterally. Neuro: No focal deficits observed. Conversant, moving all extremities. No overt cerebellar signs/incoordination. Psychiatric: Cooperative, appropriate affect. Objective Labs 04/30/25 06:08 04/30/25 06:08 Labs: Laboratory Results - last 24 hr 04/30/25 06:08 WBC 8.7 RBC 3.05 L Hgb 10.1 L Hct 30.6 L MCV 100 MCH 33.1 MCHC 33.0 RDW Std Deviation 51.7 H Plt Count 218 Neut % (Auto) 58 Lymph % (Auto) 26 Traill % (Auto) 13 H Eos % (Auto) 2 Baso % (Auto) 1 Neut # (Auto) 5.1 Lymph # (Auto) 2.3 Traill # (Auto) 1.1 H Eos # (Auto) 0.2 Baso # (Auto) 0.1 Immature Gran # (Auto) 0.03 H Absolute Nucleated RBC 0.00 Immature Gran % 0 Nucleated RBC % 0 Sodium 147 H Potassium 3.8 Chloride 112 H Carbon Dioxide 24.5 Anion Gap 11 BUN 18 Creatinine 1.4 H Estim Creat Clear Calc 29.2 L eGFR 39 L BUN/Creatinine Ratio 13 Glucose 88 Calculated Osmolality 293 Calcium 7.8 L Corrected Calcium 8.7 Phosphorus 2.6 Magnesium 1.4 L Total Bilirubin 0.2 L AST 39 H ALT 19 Alkaline Phosphatase 58 Total Protein 4.8 L Albumin 2.9 L Globulin 1.9 L Albumin/Globulin Ratio 1.5 Quality Measures Quality Measures none Advance care planning discussed with:: patient Assessment & Plan Assessment Current Active Medications: Generic Name Dose Route Start Last Admin Trade Name Titoq PRN Reason Stop Dose Admin Acetaminophen 650 mg 04/25/25 19:49 Acetaminophen 325 Mg Tablet PO 05/25/25 19:48 Q6H PRN Pain 1-3 and/or Fever >100.1 Hydrocodone Bitart/Acetaminophen 1 tab 04/29/25 12:29 04/30/25 09:54 Hydrocodone/Apap 5/325 Tablet PO 05/03/25 15:31 1 tab Q4HR PRN Administration BREAKTHROUGH PAIN (SEVERE) Atorvastatin Calcium 40 mg 04/27/25 21:00 04/29/25 20:14 Atorvastatin Calcium 20 Mg Tablet PO 05/27/25 20:59 40 mg HS KATI Administration Doxycycline Hyclate 100 mg 04/29/25 12:45 04/30/25 08:04 Doxycycline 100 Mg Tablet PO 05/06/25 12:44 100 mg BID KATI Administration Fentanyl 25 mcg 04/29/25 11:45 04/29/25 12:25 Fentanyl 25 Mcg Transdermal Patch TOP 05/04/25 11:44 25 mcg Q72H KATI Administration Fluoxetine HCl 60 mg 04/28/25 12:30 04/30/25 08:06 Fluoxetine Hcl 10 Mg Capsule PO 05/28/25 12:29 60 mg QDAY KATI Administration Heparin Sodium (Porcine) 5,000 unit 04/28/25 21:00 04/30/25 08:10 Heparin Sod Inj 5000 Unit/Ml Vial SC 05/12/25 20:59 5,000 unit Q12HR KATI Administration Hydralazine HCl 10 mg 04/27/25 18:48 Hydralazine Inj 20 Mg/Ml Vial IVP 05/27/25 18:47 Q6HR PRN Hypertension Ceftriaxone Sodium/Dextrose 1 gm in 50 mls @ 100 mls/hr 04/26/25 09:00 04/30/25 08:20 Rocephin/D5w 1gm Iv Premix IV 05/03/25 08:59 100 mls/hr QDAY KATI Administration Naloxone HCl 2 mg/ Dextrose 500 mls @ 10 mls/hr 04/29/25 17:23 IV 05/29/25 17:29 .Q24H PRN overdose Levothyroxine Sodium 75 mcg 04/26/25 06:00 04/30/25 05:18 Levothyroxine Sodium 25 Mcg Tablet PO 05/26/25 05:59 75 mcg ACBR KATI Administration Lisinopril 10 mg 04/30/25 09:00 04/30/25 08:35 Lisinopril 2.5 Mg Tablet PO 05/30/25 08:59 10 mg QDAY KATI Administration Metoprolol Succinate 25 mg 04/27/25 09:00 04/30/25 08:04 Metoprolol Succinate Xl 25 Mg Tabcr PO 05/27/25 08:59 25 mg QDAY KATI Administration Nitroglycerin 0.4 mg 04/27/25 09:11 04/27/25 09:13 Nitroglycerin 0.4 Mg Subl Btl #25 SL 0.4 mg Q5MIN PRN Administration CHEST PAIN Ondansetron HCl 4 mg 04/30/25 07:37 Ondansetron Odt 4 Mg Tabrap PO 05/30/25 07:36 Q4HR PRN NAUSEA OR VOMITING Protocol Pantoprazole Sodium 40 mg 04/29/25 21:00 04/30/25 08:07 Pantoprazole Inj 40 Mg Vial IVP 05/29/25 20:59 40 mg BID KATI Administration Sennosides 1 tab 04/25/25 19:49 04/29/25 05:07 Senna Tablet PO 05/25/25 19:48 1 tab QDAY PRN Administration constipation Protocol Simethicone 80 mg 04/29/25 18:43 Simethicone 80 Mg Chew PO 05/29/25 18:42 QID PRN GAS Spironolactone 25 mg 04/30/25 09:00 04/30/25 08:06 Spironolactone 25 Mg Tablet PO 05/30/25 08:59 25 mg QDAY KATI Administration Ursodiol 300 mg 04/30/25 08:00 04/30/25 08:31 Ursodiol 300 Mg Capsule PO 05/30/25 07:59 300 mg BIDWM KATI Administration Plan Mrs. Obrien is a 73-year-old female with a past medical history of CAD, PAD, hypertension, hyperlipidemia, s/p multiple abdominal surgeries, and status post dual-chamber pacemaker. The patient was admitted for NSTEMI type I on 04/25 after seeking help for chest and abdominal pain that started earlier that morning and and was described as a sharp hammer like sensation in her chest per chart review. Nephrology was consulted due to concerns of acute kidney injury. Patient is well-known to Dr. Villalba. #JOCELYN Stage 1 #Suspected due to Takatsubo cardiomyopathy vs hypertensive emergency Peak creatinine 1.9 from baseline 1.2, which fits criteria for JOC[place]N of absolute increase in serum creatinine 0.3 or higher and/or increase in serum creatinine 1.5 times baseline or higher within the past 48 hrs. The suspected cause of renal injury is due to either decreased cardiac output from Takatsubo cardiomyopathy or hypertensive emergency causing end-organ damage. In both situations, disrupted blood flow to the kidneys likely resulted in the acute kidney injury as reflected in the acute changes in renal function lab values. Currently unknown if patient is oliguric/anuric. Discharge planned for 04/30/25. - Educated patient on adequate hydration once discharged. - Avoid nephrotoxins. - Agree with starting lisinopril 10mg daily. - Patient to follow up with Dr. Villalba in outpatient nephrology. Patient was discussed with the Nephrology attending, Dr. Villalba. Thank you for allowing us to participate in the care of this patient. Jonathan Luis, PGY-1 Attending Provider Attestation/Addendum with assessment and plan and finding of resident. Seen and examined. Labs are reviewed Osvaldo Villalba MD
--- NOTE | 2025-04-30 11:39 | PC.SS ---
Transport with [facility] scheduled for 1:45 pm today. DIESEL DINKEY OPERATOR updated patient, bedside nurse and SNF.
[2025-04-30] MEDS: LACTULOSE SYRUP 20 GM/30 ML UDC 60 GM PO (11:47)
[2025-04-30] MEDS: ONDANSETRON ODT 4 MG TABRAP PO (12:42)
== END 2025-04-30 13:50 | disposition skilled nursing facility (03) | DRG 281 ==
LOC: SERX 19:26 → SERHOLD 20:16 → S2NX 23:25
PROVIDERS: Internal Medicine; Nurse Practitioner Family; Specialist; Student in an Organized Health Care Education/Training Program; Admitting Provider Student in an Organized Health Care Education/Training Program; Emergency Provider Emergency Medicine; PCP Nurse Practitioner Family; Visit Provider Internal Medicine
PROC: 4A023N7 Measurement of Cardiac Sampling and Pressure, Left Heart, Percutaneous Approach (ICD-10-PCS; principal; 2025-04-27 10:00)
PROC: (CPT 43239; principal; 2025-04-29 15:00)
DX: I21.4 Non-ST elevation (NSTEMI) myocardial infarction (principal); F11.23 Opioid dependence with withdrawal; I13.0 Hypertensive heart and chronic kidney disease with heart failure and stage 1 through stage 4 chronic kidney disease, or unspecified chronic kidney disease; I16.1 Hypertensive emergency; I50.20 Unspecified systolic (congestive) heart failure; N17.9 Acute kidney failure, unspecified; K22.10 Ulcer of esophagus without bleeding; F41.9 Anxiety disorder, unspecified; Z86.73 Personal history of transient ischemic attack (TIA), and cerebral infarction without residual deficits; G62.9 Polyneuropathy, unspecified; I10 Essential (primary) hypertension; E03.9 Hypothyroidism, unspecified; Z95.0 Presence of cardiac pacemaker; I73.9 Peripheral vascular disease, unspecified; F32.A Depression, unspecified; M48.061 Spinal stenosis, lumbar region without neurogenic claudication; I25.10 Atherosclerotic heart disease of native coronary artery without angina pectoris; E78.5 Hyperlipidemia, unspecified; G89.29 Other chronic pain; I44.4 Left anterior fascicular block; I49.5 Sick sinus syndrome; N18.9 Chronic kidney disease, unspecified; N20.0 Calculus of kidney; Z79.02 Long term (current) use of antithrombotics/antiplatelets; Z79.82 Long term (current) use of aspirin; Z79.890 Hormone replacement therapy; Z79.899 Other long term (current) drug therapy; Z90.710 Acquired absence of both cervix and uterus; G57.90 Unspecified mononeuropathy of unspecified lower limb; K29.70 Gastritis, unspecified, without bleeding
CPT/HCPCS: 36415; 74018; 74176; 76705; 78227; 80053; 80061; 80069; 81001; 82150; 82550; 82570; 83036; 83605; 83690; 83735; 83880; 84100; 84156; 84300; 84443; 84484; 85025; 85610; 85730; 87811; 93005; 93306; 99152; A4216; A4649; A9537; C1769; C1887; C1894; J0171; J0360; J0461; J0583; J0696; J1171; J1200; J1643; J1644; J1720; J2250; J2270; J2310; J2371; J2405; J2470; J2805; J2919; J3010; J3475; J3490; J7030; Q0162; Q9967; A9270; J2305

== ENCOUNTER 2025-06-19 22:36 | Emergency (ER) | payer MEDICARE, OTHER, SELFPAY ==
[2025-06-19 22:38] VITALS: BP 171/74; PULSE 102; RESP 17; TEMP 36.7; O2SAT 95
[2025-06-19 22:43] VITALS: BP 176/101; PULSE 110; RESP 14; TEMP 37; O2SAT 99
[2025-06-19 22:44] VITALS: PULSE 94; RESP 20; O2SAT 99
--- NOTE | 2025-06-19 22:44 | PD.EDABDPN ---
ED Abdominal Pain RME/HPI General Chief Complaint: Abdominal Pain Stated complaint: ABDOMINAL PAIN Time seen by provider: 06/19/25 23:04 Arrival date/time: 06/19/25 22:36 RME / HPI RME / HPI narrative: See MDM for Dr. Hart's HPI documentation. Related Data Home Medications ?Medication ?Instructions ?Recorded ?Confirmed folic acid 1 mg tablet 1 mg PO QDAY SUPPLEMENT #0 tabs 10/25/13 04/26/25 levothyroxine 75 mcg tablet 75 mcg PO QDAY ##0 04/13/17 04/26/25 (Synthroid) tiotropium bromide 18 mcg capsule 1 cap inhalation QDAY #0 puffs 08/03/17 04/26/25 with inhalation device (Spiriva with HandiHaler) fentanyl 50 mcg/hr transdermal 50 mcg topical Q72H 06/25/18 04/25/25 patch fluoxetine 40 mg capsule (Prozac) 60 mg PO QDAY 02/28/19 04/26/25 Previous Rx's ?Medication ?Instructions ?Recorded hydrocodone 10 mg-acetaminophen 1 tab PO Q6H PRN pain #20 tabs 09/22/24 325 mg tablet atorvastatin 40 mg tablet 40 mg PO QPM 1 month #30 tabs 04/28/25 lisinopril 10 mg tablet 10 mg PO QDAY #30 tabs 04/30/25 ondansetron 4 mg disintegrating 4 mg PO Q4HR PRN nausea and 04/30/25 tablet vomiting #60 tabs pantoprazole 40 mg tablet,delayed 40 mg PO BID #60 tabs 04/30/25 release (Protonix) spironolactone 25 mg tablet 25 mg PO QDAY #30 tabs 04/30/25 ursodiol 300 mg capsule 300 mg PO BID #60 caps 04/30/25 magnesium hydroxide 2,400 mg/10 mL 30 ml PO QDAY PRN constipation #60 06/20/25 oral suspension (Milk Of Magnesia mL Concentrated) magnesium oxide 400 mg PO BID #60 tabs 06/20/25 sennosides 8.6 mg-docusate sodium 2 tab-cap (2 x 8.6-50 mg) PO QDAY 06/20/25 50 mg tablet (Senokot-S) PRN constipation #20 tabs Allergies Allergy/AdvReac Type Severity Reaction Status Date / Time Cephalosporins Allergy Severe Rash Verified 04/27/25 12:09 iodine Allergy Severe RASH, HIVES Verified 04/27/25 12:09 levofloxacin Allergy Severe DESTROYS Verified 04/27/25 12:09 FEET TENDONS Penicillins Allergy Severe Rash Verified 04/27/25 12:09 Sulfa (Sulfonamide Allergy Severe Rash Verified 04/27/25 12:09 Antibiotics) cefazolin Allergy Unknown RASH, Verified 04/27/25 12:09 DIFFICULTY BREATHING Review of Systems Review of Systems Systems Reviewed: All systems reviewed, normal except as documented Past Medical History Past Medical History NEUROLOGIC: Positive Neurological Disorders, Transient Ischemic Attacks (TIA) and Peripheral Neuropathy; Negative Seizures CARDIAC: Positive Cardiac Disorders, Cardiac Arrhythmia, Hypercholesterolemia, Edema, Deep Vein Thrombosis and Hypertension; Negative Congestive Heart Failure RESPIRATORY: Positive Asthma, Bronchitis and Pneumonia; Negative Chronic Obstructive Pulmonary Disease (COPD) GASTROINTESTINAL: Positive Gastrointestinal Disorders, Diverticulitis, Diverticulosis, Obstructive Bowel and Gastroesophageal Reflux Disease GENITOURINARY: Positive Genitourinary Disorders and Renal Disease REPRODUCTIVE: Positive Previous Pregnancies MUSCULOSKELETAL: Positive Musculoskeletal Disorders ENT: Positive Cataracts and Deafness ENDOCRINE: Positive Endocrine Disorders and Hypothyroidism; Negative Diabetes Mellitus Type 1 or Diabetes Mellitus Type 2 HEMATOLOGIC: Positive Clotting Problems; Negative Blood Disorders or Sickle Cell Disease PSYCHO/SOCIAL: Positive Depression and Anxiety OTHER HISTORY: Positive Hospitalization, Falls and Measles; Negative Shingles, Blood Transfusions (patient is a jehovahs witnessed, no blood transfusion.), Blood Transfusion Reaction, Anesthesia Reactions or Cancer Family History FAMILY HISTORY: Positive Family Respiratory Disorders, Family Cardiac Disorders and Family Cancer Surgical History SURGICAL: Positive Pacemaker, Abdominal Surgery, Bowel Surgery, Lumpectomy and Hysterectomy Social History SMOKING STATUS: Never smoker SUBSTANCE USE: does not use ED Exam Narrative Physical exam: See [facility] for Dr. Hart's physical exam documentation. Course Quality Measures none Orders Category Date Time Status Bedside COVID-19 Antigen Test NOW Care 06/19/25 23:05 Completed Bedside Influenza A&B Antigen Test NOW Care 06/19/25 23:05 Completed Saline [Insert IV] NOW Care 06/19/25 23:05 Completed Straight [In and Out Catheter] X1 Care 06/19/25 23:[address] abdomen pelvis wo con Stat Exams 06/19/25 23:06 Completed US abdomen limited Stat Exams 06/19/25 23:06 Completed Amylase Stat Lab 06/19/25 23:24 Completed BNP [B-Type Natriuretic Peptide] Stat Lab 06/19/25 23:24 Completed Beta Hydroxybutyrate Stat Lab 06/19/25 23:24 Completed Bilirubin,Direct Stat Lab 06/19/25 23:24 Completed Blood Culture (Lab) Stat Lab 06/19/25 00:07 Received CBC Stat Lab 06/19/25 23:24 Completed CMP [Comprehensive Metabolic Panel] Stat Lab 06/19/25 23:24 Completed CRP [C-Reactive Protein] Stat Lab 06/19/25 23:24 Completed ESR [Sed Rate (ESR)] Stat Lab 06/19/25 23:24 Completed Lactate (Lactic Acid) Stat Lab 06/19/25 23:24 Completed Lipase Stat Lab 06/19/25 23:24 Completed Magnesium Stat Lab 06/19/25 23:24 Completed Procalcitonin Stat Lab 06/19/25 23:24 Completed UA, C/S IF [Urinalysis, C/S if Indicated] Stat Lab 06/20/25 00:41 Completed Magnesium Sulfate 2 GM Ivpb [Magnesium Sulfate Ivpb] Med 06/20/25 00:45 Discontinued 2 gm in 50 ml IV X1 Morphine Inj Med 06/19/25 23:05 Discontinued 6 mg IVP X1 ONE Ondansetron Inj [Zofran Inj] Med 06/19/25 23:05 Discontinued 4 mg IVP X1 ONE Sodium Chloride 0.9% 1000 ml [Ns] 1,000 ml Med 06/19/25 23:05 Discontinued IV 999 mls/hr Vital Signs Vital signs: Vital Signs Temperature 98.0 F 06/19/25 22:38 Pulse Rate 102 H 06/19/25 22:38 Respiratory Rate 17 06/19/25 22:38 Blood Pressure 171/74 H 06/19/25 22:38 Pulse Oximetry (%) 95 06/19/25 22:38 Oxygen Delivery Method Room Air 06/19/25 22:38 Abdominal Pain MDM MDM Narrative MDM Narrative:: This section includes all my notes and documentations, including HPI, PE, and ED course. Simeon Hart MD HPI: 74yo female here with several days of abdominal pain. Has trouble localizing the pain. Has trouble describing the quality and quantity of the pain. Uncertain about exacerbating factors or relieving factors. No other complaints. ROS: All negative except as documented in HPI. Physical Exam: General: Alert and oriented. No acute distress when remaining still. Eyes: Conjunctivae and lids clear. ENT: No nasal congestion. Neck: Supple. Heart: RRR. Lungs: No respiratory distress. Good air movement. No rhonchi, wheezing, rales. Abdomen: Soft with equivocal left-sided tenderness, difficult to localize. Normal bowel sounds. No distension. No rebound or guarding. Back: No CVA tenderness. Skin: Warm and dry. Neuro: Alert and oriented X 3. I reviewed EMS notes. I reviewed all diagnostic test results. My review of the abdominal ultrasound report is NAD. My review of the CT abdomen pelvis report is constipation. Blood tests remarkable for Mg 1.3. UA unremarkable. At this point, diagnoses include constipation and hypomagnesemia. Treatment here included: IV fluid Morphine Zofran Magnesium Significant permit noted. Recommend outpatient treatment. Based on my best medical judgment, made decision no further evaluation or treatment indicated at this time. Patient understands and agrees to the discharge instructions customized and printed, see below. Discharge instructions from Dr. Hart printed for you: ?After extensive evaluation, there is no emergency. Such as bowel obstruction. -You have constipation which can cause severe pain. ?Take milk of magnesia and Senokot S (not plain Senokot, OTC so prescription not needed), two to four pills, at bedtime as needed. May take a few days but this will help clear out your bowels. ?To help current constipation and prevent future constipation, increase oral fluid because dehydration cause severe constipation. Maintain clear urine. If dark or yellow, increase oral fluid. ?And every day, increase fresh fruits and fresh vegetables and physical exercise. --And increase food rich in magnesium and take magnesium pills as prescribed. ?See a private doctor on 06/22/2025 for recheck. Ask to review all test results and official radiology reports, to make sure you receive all necessary follow-ups and monitoring, including repeat magnesium level. To make sure there is no serious underlying abdominal condition, ask to help you get more care not available here in the ER. Such as EGD or scoping of your stomach, colonoscopy or scoping the colon, and a referral to see a basic sciences professor. ?Seek immediate medical care with worsening or with any concerns. Simeon Hart MD Patient data External records reviewed:: [facility] previous records (Per chart review, patient was admitted here on 04/25/25 for abdominal pain.) Clinical information provided by:: patient Social determinants that could affect healthcare access:: housing (SNF resident) Patient has the following chronic illnesses:: PAD, HTN, HLF, bradycardia status post dual-chamber pacemaker (Biotronik), hypothyroidism, anxiety, depression, hemorrhoids, diverticulosis, chronic abdominal pain status post sigmoid colectomy in 2019 How is presenting disease/condition affected by chronic disease/condition?: uneffected by Evaluation data The following diagnostics were reviewed and interpreted by me:: lab results and radiology exam(s) Lab and/or radiology exams considered but not ordered:: none Interpretation Summary: I reviewed all diagnostic test results. My review of the abdominal ultrasound report is NAD. My review of the CT abdomen pelvis report is constipation. Blood tests remarkable for Mg 1.3. UA unremarkable. Medications / Prescriptions Medications or Prescriptions considered but not ordered:: none Medication administrations:: Medication Administration History Discontinued Medications Sodium Chloride (Ns) 1,000 mls @ 999 mls/hr IV .Q1H1M ONE Stop: 06/20/25 00:05 Last Infusion: 06/20/25 04:06 Dose: Infused Documented By: Admin: 06/19/25 23:21 Dose: 999 mls/hr Documented By: ROBERT Magnesium Sulfate (Magnesium Sulfate Ivpb) 2 gm in 50 mls @ 25 mls/hr IV X1 ONE Stop: 06/20/25 02:44 Last Admin: 06/20/25 03:12 Dose: 25 mls/hr Documented By: CARLOS Morphine Sulfate (Morphine Sulf Inj 10 Mg/Ml Vial) 6 mg IVP X1 ONE Stop: 06/19/25 23:06 Last Admin: 06/19/25 23:20 Dose: 6 mg Documented By: DT Ondansetron HCl (Ondansetron Inj 2 Mg/Ml Inj 2 Ml) 4 mg IVP X1 ONE; Protocol Stop: 06/19/25 23:06 Last Admin: 06/19/25 23:19 Dose: 4 mg Documented By: ROBERT IV fluid, Morphine, Zofran, Magnesium Consultations Consultation(s) initiated? (list below): No Diagnosis Differential diagnosis abdominal pain: acute appendicitis, calculus of kidney, constipation, diverticulitis, endometriosis, gastroenteritis, pancreatitis and small bowel obstruction Most likely diagnosis given after review of the tests above:: Constipation, Hypomagnesemia Admission Indicated Admission indicated?: not indicated Explain why admission is indicated or not indicated:: With significant improvement and no condition needing emergent intervention, there was no indication for admission. Admission Request Was there a request for admission?: No Disposition Plan Disposition Plan: Discharge Discharge Attestation Discharge Attestation: The patient and all family members were given an opportunity to ask questions and understood the discharge instructions. Discharge instructions specifically effects, indications for sooner follow up or return to the emergency department, and the expected course of current diagnosis. Patient condition: Stable Discharge Plan Plan Patient Disposition: Xfer Skilled Nsg Fac (SNF) Prescriptions/Referrals Prescriptions/Med Rec: New sennosides-docusate sodium [Senokot-S] 8.6-50 mg tablet 2 tab-cap PO QDAY PRN (Reason: constipation) Qty: 20 0RF magnesium hydroxide [Milk Of Magnesia Concentrated] 2,400 mg/10 mL suspension 30 ml PO QDAY PRN (Reason: constipation) Qty: 60 0RF magnesium oxide 400 mg magnesium tablet 400 mg PO BID Qty: 60 0RF No Action folic acid 1 MG tablet 1 mg PO QDAY Qty: 0 levothyroxine [Synthroid] 75 mcg Tablet 75 mcg PO QDAY Qty: 0 tiotropium bromide [Spiriva with HandiHaler] 18 mcg Capsule, W/Inhalation Device 1 cap INHALATION QDAY Qty: 0 fentanyl 50 mcg/hr Patch 72 Hour 50 mcg Topical Q72H fluoxetine [Prozac] 40 mg Capsule 60 mg PO QDAY atorvastatin 40 mg tablet 40 mg PO QPM 30 Days Qty: 30 1RF ursodiol 300 mg capsule 300 mg PO BID Qty: 60 0RF lisinopril 10 mg tablet 10 mg PO QDAY Qty: 30 0RF pantoprazole [Protonix] 40 mg tablet,delayed release (DR/EC) 40 mg PO BID Qty: 60 0RF ondansetron 4 mg tablet,disintegrating 4 mg PO Q4HR PRN (Reason: nausea and vomiting) Qty: 60 0RF Rx Instructions: SUBLINGUAL USE for nausea spironolactone 25 mg tablet 25 mg PO QDAY Qty: 30 0RF hydrocodone-acetaminophen 10-325 mg tablet 1 tab PO Q6H MDD 4 PRN (Reason: pain) Qty: 20 0RF Referrals: Moon Loyola, [employer] [Primary Care Provider] - In 1 week Problem List Clinical Impression: Constipation, Hypomagnesemia Patient/Caregiver Discharge Instructions Discharge Activity: activity as tolerated Education Materials: Magnesium (Blood), ED Constipation (Adult) Additional Instructions: Discharge instructions from Dr. Hart printed for you: ?After extensive evaluation, there is no emergency.? Such as bowel obstruction. -You have constipation which can cause severe pain. ?Take milk of magnesia and Senokot S (not plain Senokot, OTC so prescription not needed), two to four pills, at bedtime as needed.? May take a few days but this will help clear out your bowels. ?To help current constipation and prevent future constipation, increase oral fluid because dehydration cause severe constipation.? Maintain clear urine.? If dark or yellow, increase oral fluid. ?And every day, increase fresh fruits and fresh vegetables and physical exercise. --And increase food rich in magnesium and take magnesium pills as prescribed. ?See a private doctor on 06/22/2025 for recheck. Ask to review all test results and official radiology reports, to make sure you receive all necessary follow-ups and monitoring, including repeat magnesium level. To make sure there is no serious underlying abdominal condition, ask to help you get more care not available here in the ER.? Such as EGD or scoping of your stomach, colonoscopy or scoping the colon, and a referral to see a basic sciences professor. ?Seek immediate medical care with worsening or with any concerns. Print Language: Tamazight Stand Alone Forms: [facility] Award Info., Patient Portal Info Letter
[2025-06-19 22:50] VITALS: BMI 23.8
--- NOTE | 2025-06-19 23:06 | XR_ITS ---
Examination: Abdomen sonogram, Limited Date and time of exam: June 19, 2025 11:51 PM Indications: Left upper abdominal pain and vomiting beginning 2 days ago Technique: Real-time jasso scale transabdominal sonographic images of the upper abdomen obtained. Findings: Normal gallbladder Normal common bile duct 0.5 cm Pancreatic head 2.8 cm Liver 12.6 cm smooth contour no focal liver lesions Normal hepatopedal portal venous flow Patent IVC Impression: Normal gallbladder Normal common bile duct
--- NOTE | 2025-06-19 23:06 | XR_ITS ---
Examination: CT abdomen and pelvis without contrast. Coronal 3-D reconstructions. Sagittal 2-D reconstructions. Date and time of exam:June 20, 2025, 0100 hrs., Comparison April 25, 2025. Indications: Onset abdominal pain today, history kidney stones. CTDI: vol (mGy): . 6.40. DLP: (mGycm): 347. Technique: Axial images of the abdomen have been obtained, 3 mm slice thickness Intravenous contrast material has not been administered. Low dose protocols were performed. One or more of the following dose reduction techniques were used; automated exposure control, adjustment of the mA and/or KV according to patient size, use of iterative reconstruction technique. Findings: Mild enlargement cardiac contour. No focal liver or splenic lesion. Distended gallbladder with common bile duct 7 mm. Bilateral perinephric stranding and moderate renal scar formation. Aorta normal size. Abundant stool throughout the colon. No definite appendiceal inflammatory change. No diverticulitis No pelvic mass Urinary bladder intact Advanced degenerative disc disease L2-L3 Impression: Distended gallbladder, common bile duct 7 mm no definite stones. Bilateral perinephric stranding, which can be seen with urinary tract infection. No definite findings of appendicitis, depression of a clinically correlated. No bowel obstruction. Abundant stool throughout the colon.
[2025-06-19] MEDS: ONDANSETRON INJ 2 MG/ML INJ 2 ML 4 MG IVP (23:19)
[2025-06-19] MEDS: MORPHINE SULF INJ 10 MG/ML VIAL 6 MG IVP (23:20)
[2025-06-19] MEDS: SODIUM CHLORIDE 0.9% 1000 ML 1,000 ML 999 ML IV (23:21)
[2025-06-19 23:32] LABS: Basophils # (Auto) 0.0 Thou/mm3 (0.0-0.2); Basophils % (Auto) 1 % (0-2.5); Eosinophils # (Auto) 0.1 Thou/mm3 (0.0-0.5); Eosinophils % (Auto) 2 % (0-10); Hematocrit 35.9 % (36.0-46.0); Hemoglobin 11.9 g/dL (12.0-16.0); Immature Granulocytes Auto 0.02 Thou/mm3 (0.00-0.00); Lactate (Lactic Acid) 1.4 mMol/L (0.4-2.0); Lymphocytes # (Auto) 2.4 Thou/mm3 (1.0-4.8); Lymphocytes % (Auto) 39 % (10-50); Mean Corpuscular HGB Conc 33.1 g/dl (31.0-37.0); Mean Corpuscular Hemoglobin 31.6 pg (25.0-35.0); Mean Corpuscular Volume 95 fL (80-100); Monocytes # (Auto) 0.8 Thou/mm3 (0.0-0.8); Monocytes % (Auto) 13 % (0-12); Neutrophils # (Auto) 2.8 Thou/mm3 (1.8-7.7); Neutrophils % (Auto) 46 % (37-80); Nucleated Red Blood Cell # 0.00 Thou/mm3 (0.00-0.00); Nucleated Red Blood Cell % 0 /100 WBC (0); Platelet Count 215 Thou/mm3 (140-440); RDW Standard Deviation 43.5 fL (36.4-46.3); Red Blood Count 3.77 Miln/mm3 (4.00-5.20); White Blood Count 6.2 Thou/mm3 (3.6-11.0)
[2025-06-19 23:37] LABS: Beta Hydroxybutyrate 0.1 mmol/L (<0.6)
[2025-06-19 23:43] LABS: Sed Rate (ESR) 13 mm/hr (0-30)
[2025-06-20] LABS: B-Type Natriuretic Peptide 71 pg/mL (0-100)
[2025-06-20 00:04] LABS: Alanine Aminotransferase 9 U/L (10-49); Albumin, Serum 3.9 gm/dL (3.4-4.8); Albumin/Globulin Ratio 1.8 (1.2-2.2); Alkaline Phosphatase 82 U/L (46-116); Amylase 101 U/L (30-118); Anion Gap 11 (7-16); Aspartate Amino Transferase 24 U/L (0-34); BUN/Creatinine Ratio 18 Ratio (12-20); Bilirubin,Direct 0.2 mg/dL (0.0-0.3); Bilirubin,Total 0.5 mg/dL (0.3-1.2); Blood Urea Nitrogen 21 mg/dL (9-23); C-Reactive Protein < 0.5 mg/dL (0.0-0.9); Calcium 9.1 mg/dL (8.3-10.6); Calcium (Corrected) 9.2 mg/dL (8.5-10.1); Carbon Dioxide 25.0 mMol/L (20.0-31.0); Chloride 104 mMol/L (98-107); Creatinine (Component) 1.2 mg/dL (0.6-1.3); Estimated Creatinine Clearance 32.0 mL/min (>60); Globulin 2.2 gm/dL (2.3-3.5); Glucose 96 mg/dL (74-106); Lipase 67 U/L (12-53); Magnesium 1.3 mg/dL (1.6-2.6); Osmolality,Calculated 282 (275-295); Potassium 4.2 mMol/L (3.4-5.1); Procalcitonin 0.07 ng/ml (0.0-0.49); Sodium 140 mMol/L (136-145); Total Protein 6.1 gm/dL (5.7-8.2); eGFR 47 See Note
[2025-06-20 00:48] LABS: Collection Type, Urine Clean Catch; Squamous Epithelial Cell,Urine 0 /hpf (0-5)
[2025-06-20 00:56] LABS: Bilirubin,Urine Negative (Negative); Blood,Urine Negative (Negative); Clarity,Urine Clear (Clear/Hazy); Color,Urine Colorless (Lt Yel-Yel); Culture Indicated,Urine Not Indicated; Glucose, Urine Negative (Negative); Ketones,Urine Negative (Negative); Leukocyte Esterase,Urine Positive (Negative); Nitrite,Urine Negative (Negative); PH,Urine 6.5 (5.0-7.0); Protein,Urine Trace (Neg - Trace); RBC,Urine 1 /hpf (0-3); Specific Gravity,Urine 1.008 (1.001-1.035); Urobilinogen,Urine Negative mg/dL (0.0-1.0); WBC,Urine 2 /hpf (0-5)
--- NOTE | 2025-06-20 01:10 | PRELIM_ITS ---
Right upper quadrant abdominal ultrasound with Doppler and wave Doppler spectral analysis. June 19, 2025 2351 hours Clinical history: Abdominal pain, difficult to localize. Technique: Grayscale and color flow images of the right upper quadrant are provided. Hepatic and portal veins were also imaged with color flow images. Comparison: None available at the time of this report. Findings: The liver is normal in echogenicity. No intrahepatic biliary ductal dilatation. No gallbladder calculus, wall thickening or pericholecystic fluid is demonstrated. The common bile duct is normal in caliber at 4.5 mm. The pancreas is unremarkable to the extent visualized. The imaged portions of the right kidney are within normal limits. The portal vein is patent with hepatopetal flow and normal wave Doppler spectral analysis. The hepatic veins are patent with normal wave Doppler spectral analysis. The IVC is patent with normal wave Doppler spectral analysis. Impression: Unremarkable right upper quadrant ultrasound examination. Report Electronically Signed By: Cristóbal Johnson 06/20/2025 1:09:21 AM [EST]
[2025-06-20 02:21] VITALS: BP 146/79; PULSE 63; RESP 19; TEMP 37.3; O2SAT 94
[2025-06-20] MEDS: Magnesium Sulfate 2 GM Ivpb 2 GM/50 ML BAG IV (03:12)
[2025-06-20 04:38] VITALS: BP 166/77; PULSE 63; RESP 15; TEMP 37.6; O2SAT 96
== END 2025-06-20 06:36 | disposition skilled nursing facility (03) ==
PROVIDERS: Emergency Provider Emergency Medicine; PCP Nurse Practitioner Family
DX: E83.42 Hypomagnesemia (principal); K59.00 Constipation, unspecified
CPT/HCPCS: 36415; 74176; 76705; 80053; 81001; 82010; 82150; 82248; 83605; 83690; 83735; 83880; 84145; 85025; 85652; 86140; 87040; 87400; 87811; 96361; 96374; 96375; 99284; J2270; J2405; J3475; J7030

== ENCOUNTER 2025-09-21 20:17 | Emergency (ER) | payer MEDICARE, OTHER, SELFPAY ==
[2025-09-21] VITALS (7 sets, daily range): BP systolic 132–215; BP diastolic 61–112; PULSE 60–81; RESP 17–18; TEMP 37.1–37.2; O2SAT 95–98; BMI 21.2
--- NOTE | 2025-09-21 20:25 | PD.EDCHEST ---
ED Chest Pain RME/HPI General Chief Complaint: Chest Pain Stated Complaint: CHEST PAIN Time Seen by Provider: 09/21/25 20:46 Arrival date/time: 09/21/25 20:17 RME / HPI RME / HPI narrative: DR. KRUSE MAIN ED EVALUATION: Patient presenting with Hx of HTN recently placed on Hospice with multiple medical problems, including HTN, CHF, CKD, and Gallbladder dysfunction, now presenting with sudden onset substernal chest pain radiating to the upper abdomen and intrascapular region of moderate to severe intensity, prompting her to summon EMS. Notes associated shortness of breath, profuse diaphoresis, lightheadedness, and near-syncope. Upon EMS arrival, patient found to be markedly hypertensive with systolic blood pressure over 230. Patient was treated with SL Nitro, topical Nitro, and ASA with some improvement en route. PMH: Transient Ischemic Attacks (TIA), Peripheral Neuropathy, Cardiac Arrhythmia, CHF, Hypercholesterolemia, Edema, Deep Vein Thrombosis, Hypertension, Asthma, Bronchitis and Pneumonia, Diverticulitis, Diverticulosis, Obstructive Bowel and Gastroesophageal Reflux Disease, Chronic Kidney Disease, Cataracts and Deafness, Hypothyroidism, Depression and Anxiety PSH: Non-contributory Allergies: Cephalosporins, Iodine, Levofloxacin, Penicillins, Sulfa, Cefazolin Social: In Hospice care Related Data Home Medications ?Medication ?Instructions ?Recorded ?Confirmed folic acid 1 mg tablet 1 mg PO QDAY SUPPLEMENT #0 tabs 10/25/13 04/26/25 levothyroxine 75 mcg tablet 75 mcg PO QDAY ##0 04/13/17 04/26/25 (Synthroid) tiotropium bromide 18 mcg capsule 1 cap inhalation QDAY #0 puffs 08/03/17 04/26/25 with inhalation device (Spiriva with HandiHaler) fentanyl 50 mcg/hr transdermal 50 mcg topical Q72H 06/25/18 04/25/25 patch fluoxetine 40 mg capsule (Prozac) 60 mg PO QDAY 02/28/19 04/26/25 Previous Rx's ?Medication ?Instructions ?Recorded hydrocodone 10 mg-acetaminophen 1 tab PO Q6H PRN pain #20 tabs 09/22/24 325 mg tablet atorvastatin 40 mg tablet 40 mg PO QPM 1 month #30 tabs 04/28/25 lisinopril 10 mg tablet 10 mg PO QDAY #30 tabs 04/30/25 ondansetron 4 mg disintegrating 4 mg PO Q4HR PRN nausea and 04/30/25 tablet vomiting #60 tabs pantoprazole 40 mg tablet,delayed 40 mg PO BID #60 tabs 04/30/25 release (Protonix) spironolactone 25 mg tablet 25 mg PO QDAY #30 tabs 04/30/25 ursodiol 300 mg capsule 300 mg PO BID #60 caps 04/30/25 magnesium hydroxide 2,400 mg/10 mL 30 ml PO QDAY PRN constipation #60 06/20/25 oral suspension (Milk Of Magnesia mL Concentrated) magnesium oxide 400 mg PO BID #60 tabs 06/20/25 sennosides 8.6 mg-docusate sodium 2 tab-cap (2 x 8.6-50 mg) PO QDAY 06/20/25 50 mg tablet (Senokot-S) PRN constipation #20 tabs clonidine 0.2 mg/24 hr weekly 0.2 mg topical .weekly #4 ea 09/22/25 transdermal patch ([id number]) sucralfate 100 mg/mL oral 10 ml PO BID #400 mL 09/22/25 suspension Allergies Allergy/AdvReac Type Severity Reaction Status Date / Time Cephalosporins Allergy Severe Rash Verified 04/27/25 12:09 iodine Allergy Severe RASH, HIVES Verified 04/27/25 12:09 levofloxacin Allergy Severe DESTROYS Verified 04/27/25 12:09 FEET TENDONS Penicillins Allergy Severe Rash Verified 04/27/25 12:09 Sulfa (Sulfonamide Allergy Severe Rash Verified 04/27/25 12:09 Antibiotics) cefazolin Allergy Unknown RASH, Verified 04/27/25 12:09 DIFFICULTY BREATHING Review of Systems Review of Systems Systems Reviewed: All systems reviewed, normal except as documented Past Medical History Past Medical History NEUROLOGIC: Positive Transient Ischemic Attacks (TIA) and Peripheral Neuropathy CARDIAC: Positive Cardiac Arrhythmia, Hypercholesterolemia, Edema, Deep Vein Thrombosis and Hypertension RESPIRATORY: Positive Asthma, Bronchitis and Pneumonia GASTROINTESTINAL: Positive Diverticulitis, Diverticulosis, Obstructive Bowel and Gastroesophageal Reflux Disease GENITOURINARY: Positive Renal Disease ENT: Positive Cataracts and Deafness ENDOCRINE: Positive Hypothyroidism HEMATOLOGIC: Positive Clotting Problems PSYCHO/SOCIAL: Positive Depression and Anxiety OTHER HISTORY: Positive Falls and Measles Family History FAMILY HISTORY: Positive Family Respiratory Disorders, Family Cardiac Disorders and Family Cancer Surgical History SURGICAL: Positive Pacemaker, Abdominal Surgery, Bowel Surgery, Lumpectomy and Hysterectomy ED Exam Narrative Physical exam: GEN. APPEARANCE: The patient is alert awake oriented X-3 under no distress, lying down comfortably, markedly hypertensive, appears chronically ill. Patient has good eye contact. Patient is cooperative. VITALS: All vitals were reviewed and the pulse ox is 96%, which is normal according to my interpretation HEENT: Normocephalic, atraumatic and nontender. Pupils are equal and reactive. Oral mucosa is moist. NECK: Supple, nontender, no meningismus, no JVD. There is no thyromegaly and no lymphadenopathy. CHEST: Nontender on palpation no deformity and no crepitus. CARDIOVASCULAR: Heart regular rhythm, no murmur or gallop rub or extra beats. LUNGS: Clear to auscultation bilaterally with symmetrical chest rise. No laboring tachypnea or wheezing. No intercostal subcostal retraction. No rales and no rhonchi. ABDOMEN: Soft, flat, nontender to palpation, no guarding or rebound tenderness. There are no abnormal masses palpated. No pulsatile masses or bruits. Active and normal bowel sounds. EXTREMITIES: Normal inspection and palpation. No edema. No cyanosis. Patient is able to move all 4 extremities well SKIN: Warm and dry, no rashes noted. MUSCULOSKELETAL: No lumbar or midline bony tenderness. There is no CVA tenderness. No paraspinal muscle spasm or tenderness. NEURO: Cranial nerves II through XII grossly intact. There are no focal neurologic deficits noted. GCS is 15 PSYCHIATRIC: Patient is in normal mood and affect, cooperative. LYMPHATICS: No major lymphadenopathy noted. Course Quality Measures none Orders Category Date Time Status CT Screening NOW Care 09/21/25 20:46 Active Daycare Provider Q4H START 00 Care 09/22/25 00:53 Active EKG (ED ONLY) *Do not use* NOW Care 09/21/25 20:27 Completed Insert IV NOW Care 09/21/25 20:[address] angio chest abdomen pelvis Stat Exams 09/21/25 20:46 Completed EKG (ED Only) Stat Exams 09/21/25 20:27 Draft US gall bladder Stat Exams 09/22/25 00:00 Taken B-Type Natriuretic Peptide Stat Lab 09/21/25 20:28 Completed CBC Stat Lab 09/21/25 20:28 Completed Comprehensive Metabolic Panel Stat Lab 09/21/25 20:28 Completed Drug Screen,Urine Stat Lab 09/21/25 23:46 Completed LDH (Lactate Dehydrogenase) Stat Lab 09/21/25 20:28 Completed Magnesium Stat Lab 09/21/25 20:28 Completed Partial Thromboplastin Time Stat Lab 09/21/25 20:28 Completed Prothrombin Time with INR Stat Lab 09/21/25 20:28 Completed Troponin I Stat Lab 09/21/25 20:28 Completed Troponin I Stat Lab 09/22/25 02:49 Completed Urinalysis, C/S if Indicated Stat Lab 09/21/25 23:46 Completed DiphenhydrAMINE INJ [Benadryl Inj] Med 09/21/25 20:46 Discontinued 25 mg IVP X1 ONE Morphine* Inj Med 09/22/25 00:42 Discontinued 4 mg IV X1 ONE Morphine* Inj Med 09/21/25 20:48 Discontinued 4 mg IVP X1 ONE Ondansetron Inj [Zofran Inj] Med 09/22/25 01:58 Discontinued 4 mg IVP X1 ONE Prochlorperazine Inj [Compazine Inj] Med 09/21/25 20:48 Discontinued 5 mg IV X1 ONE dexAMETHasone INJ [Decadron Inj] 10 mg Med 09/21/25 20:46 Discontinued Sodium Chloride 0.9% [Ns] 100 ml IV X1 hydrALAZINE INJ [Apresoline Inj] Med 09/21/25 20:27 Discontinued 10 mg IVP X1 ONE Vital Signs Vital signs: Vital Signs Temperature 98.9 F 09/21/25 20:23 Pulse Rate 81 09/21/25 20:23 Respiratory Rate 18 09/21/25 20:23 Blood Pressure 194/96 H 09/21/25 20:23 Pulse Oximetry (%) 96 09/21/25 20:23 Oxygen Delivery Method Room Air 09/21/25 20:23 Chest Pain MDM Narrative MDM Narrative:: Scribe Attestation: I, Susi Bah, douglas scribing for and in the presence of Dr. Sanders. Provider Notation: Although this document has been carefully reviewed, there may still be some phonetic and other typographical errors. These errors are purely grammatical due to imperfections in the software program and should not be construed in any way to compromise the substance of the patient's medical care during this visit. Patient presenting with Hx of HTN recently placed on Hospice with multiple medical problems, including HTN, CHF, CKD, and Gallbladder dysfunction, now presenting with sudden onset substernal chest pain radiating to the upper abdomen and intrascapular region of moderate to severe intensity, prompting her to summon EMS. Notes associated shortness of breath, profuse diaphoresis, lightheadedness, and near-syncope. Please see PE findings. Laboratory markers, including CBC and serum chemistries, were essentially unremarkable excluding diminished GFR of 53.2, UA without evidnce of infection, and special studies, including CTA of abdomen/pelvis, without evidence of aortic dissection. Review of medical records indicates patient recently placed on hospice and found to have esophageal ulcers, gastritis, and presence of gall bladder dysfuntion with EF ejection fracture 3%, given severe really depressed EF, was thought to be poor surgical candidate for cholecystectomy. Patient immediately placed on cardiac tech, administered IV Hydralazine with prompt reduction in blood pressure to acceptable limits. Patient treated with low-dose narcotic analgesics/anti-emetics with mild to moderate relief. Will additionally, will add 0.2 mg Clonidine patch to regimen, and recommend split 30 mg to 2 BID regimen for chronic pain. Close F/U with rnfa recommended. Final diagnoses includes biliary colic and accelerated hypertension. Patient data External records reviewed:: [facility] previous records (Reviewed prior ED records from 06/19/25. Patient was seen for Constipation.) and EMS form Clinical information provided by:: patient and EMS Social determinants that could affect healthcare access:: none Patient has the following chronic illnesses:: Transient Ischemic Attacks (TIA), Peripheral Neuropathy, Cardiac Arrhythmia, CHF, Hypercholesterolemia, Edema, Deep Vein Thrombosis, Hypertension, Asthma, Bronchitis, Pneumonia, Diverticulitis, Diverticulosis, Obstructive Bowel and Gastroesophageal Reflux Disease, Chronic Kidney Disease, Cataracts and Deafness, Hypothyroidism, Depression and Anxiety How is presenting disease/condition affected by chronic disease/condition?: exacerbated by Evaluation data The following diagnostics were reviewed and interpreted by me:: lab results, radiology exam(s) and EKG tracing(s) (EKG demonstrates PACED, sinus rhythm, no acute ST elevations, evidence of LAHB, no ventricular ectopy, axis leftward, evidence of LVH, per my interpretation.) Lab and/or radiology exams considered but not ordered:: None Interpretation Summary: RADIOLOGY Chest/Abdomen/Pelvis: Findings: No thoracic aortic aneurysmal dilatation or dissection No pulmonary artery emboli. No paratracheal tracheobronchial or bronchopulmonary adenopathy. No pneumonia, pulmonary edema or pleural disease Distended gallbladder No visualized liver or splenic lesion No pancreatic or adrenal mass No abdominal aortic aneurysm dilatation or dissection No bowel obstruction No pericecal inflammatory change Colonic diverticulosis, no diverticulitis Mild wall thickening involving the sigmoid colon No pelvic mass Bladder intact Severe osteopenia IMPRESSION: No thoracic or abdominal aortic aneurysm dilatation or dissection Negative for pulmonary artery emboli No paratracheal tracheobronchial or bronchopulmonary adenopathy. No pneumonia, or pulmonary edema Distended gallbladder, recommend gallbladder sonography follow-up No CT findings of appendicitis or bowel obstruction Mild nonspecific colitis involving the sigmoid colon Medications / Prescriptions Medications or Prescriptions considered but not ordered:: None Medication administrations:: Medication Administration History Discontinued Medications Diphenhydramine HCl (Diphenhydramine Inj 50 Mg/Ml Vial) 25 mg IVP X1 ONE Stop: 09/21/25 20:47 Last Admin: 09/21/25 21:35 Dose: 25 mg Documented By: TATUM Hydralazine HCl (Hydralazine Inj 20 Mg/Ml Vial) 10 mg IVP X1 ONE Stop: 09/21/25 20:28 Last Admin: 09/21/25 20:33 Dose: 10 mg Documented By: TATUM Dexamethasone Sodium Phosphate (10 mg/ Sodium Chloride) 101 mls @ 101 mls/hr IV X1 ONE Stop: 09/21/25 20:47 Last Infusion: 09/21/25 22:35 Dose: Infused Documented By: Admin: 09/21/25 21:35 Dose: 101 mls/hr Documented By: TATUM Morphine Sulfate (Morphine Sulf Inj 4 Mg/Ml Vial) 4 mg IVP X1 ONE Stop: 09/21/25 20:49 Last Admin: 09/21/25 21:36 Dose: 4 mg Documented By: TATUM Morphine Sulfate (Morphine Sulf Inj 4 Mg/Ml Vial) 4 mg IV X1 ONE Stop: 09/22/25 00:43 Last Admin: 09/22/25 00:50 Dose: 4 mg Documented By: TATUM Ondansetron HCl (Ondansetron Inj 2 Mg/Ml Inj 2 Ml) 4 mg IVP X1 ONE; Protocol Stop: 09/22/25 01:59 Last Admin: 09/22/25 02:06 Dose: 4 mg Documented By: TATUM Prochlorperazine Edisylate (Prochlorperazine Inj 5 Mg/Ml Vial 2 Ml) 5 mg IV X1 ONE; Protocol Stop: 09/21/25 20:49 Last Admin: 09/21/25 21:36 Dose: 5 mg Documented By: TATUM Comments: See above if any Consultations Consultation(s) initiated? (list below): No Diagnosis Chest Pain Differential Diagnosis: pneumothorax, stable angina, unstable angina pectoris, atypical chest pain, st elevation myocardial infarction, costochondritis, chest pain and biliary colic Most likely diagnosis given after review of the tests above:: Biliary colic, Accelerated Hypertension Admission Indicated Admission indicated?: not indicated Explain why admission is indicated or not indicated:: Patient does not meet admission criteria Admission Request Was there a request for admission?: No Disposition Plan Disposition Plan: Discharge Discharge Attestation Discharge Attestation: The patient and all family members were given an opportunity to ask questions and understood the discharge instructions. Discharge instructions specifically effects, indications for sooner follow up or return to the emergency department, and the expected course of current diagnosis. Patient condition: Stable Discharge Plan Plan Patient Disposition: HOME (Self Care) Prescriptions/Referrals Prescriptions/Med Rec: No Action folic acid 1 MG tablet 1 mg PO QDAY Qty: 0 levothyroxine [Synthroid] 75 mcg Tablet 75 mcg PO QDAY Qty: 0 tiotropium bromide [Spiriva with HandiHaler] 18 mcg Capsule, W/Inhalation Device 1 cap INHALATION QDAY Qty: 0 fentanyl 50 mcg/hr Patch 72 Hour 50 mcg Topical Q72H fluoxetine [Prozac] 40 mg Capsule 60 mg PO QDAY atorvastatin 40 mg tablet 40 mg PO QPM 30 Days Qty: 30 1RF ursodiol 300 mg capsule 300 mg PO BID Qty: 60 0RF lisinopril 10 mg tablet 10 mg PO QDAY Qty: 30 0RF pantoprazole [Protonix] 40 mg tablet,delayed release (DR/EC) 40 mg PO BID Qty: 60 0RF ondansetron 4 mg tablet,disintegrating 4 mg PO Q4HR PRN (Reason: nausea and vomiting) Qty: 60 0RF Rx Instructions: SUBLINGUAL USE for nausea spironolactone 25 mg tablet 25 mg PO QDAY Qty: 30 0RF sennosides-docusate sodium [Senokot-S] 8.6-50 mg tablet 2 tab-cap PO QDAY PRN (Reason: constipation) Qty: 20 0RF magnesium hydroxide [Milk Of Magnesia Concentrated] 2,400 mg/10 mL suspension 30 ml PO QDAY PRN (Reason: constipation) Qty: 60 0RF magnesium oxide 400 mg magnesium tablet 400 mg PO BID Qty: 60 0RF hydrocodone-acetaminophen 10-325 mg tablet 1 tab PO Q6H MDD 4 PRN (Reason: pain) Qty: 20 0RF Referrals: No Primary/Family,Physician [Primary Care Provider] - In 1 week Problem List Clinical Impression: Biliary colic, Accelerated hypertension Patient/Caregiver Discharge Instructions Education Materials: Controlling High Blood Pressure Additional Instructions: Maintain low-fat diet. Change morphine to twice daily rather than once a day. Begin clonidine patch in the a.m. to be placed once per week. Continue other medications as directed. Print Language: [place] Zealander Stand Alone Forms: [place] Award Info., Patient Portal Info Letter
--- NOTE | 2025-09-21 20:27 | EKG_ITS ---
[facility] Test Date: 2025-09-21 Pat Name: APRIL ESPINOSA Department: Room: - Gender: Female Water Ch[employer]: : 1950 Requested By: Андрей Frank Order Number: [id number] Reading MD: Андрей Frank Measurements Intervals [place] Rate: 69 P: 123 AR: 173 QRS: -52 QRSD: 121 T: -13 QT: 438 QTc: 472 Interpretive Statements ELECTRONIC ATRIAL PACEMAKER LEFT ANTERIOR FASCICULAR BLOCK [QRS AXIS <= -45, QR IN I, RS IN II] POSSIBLE LEFT VENTRICULAR HYPERTROPHY [VOLTAGE CRITERIA PLUS LAE OR QRS WIDENING] NONSPECIFIC T-WAVE ABNORMALITY Compared to ECG 04/29/2025 19:49:46 Left anterior fascicular block now present Myocardial infarct finding no longer present Possible ischemia no longer present T-wave abnormality still present /store/S0/[id number].pdf
[2025-09-21] MEDS: hydrALAZINE INJ 20 MG/ML VIAL 10 MG IVP (20:33)
--- NOTE | 2025-09-21 20:46 | XR_ITS ---
Examination: CTA chest, with intravenous contrast. CTA abdomen, with intravenous contrast. CTA pelvis, with intravenous contrast. 2-D sagittal and coronal reconstructions. 3-D reconstructions. Date and time of exam: September 21, 2025, 1004 hours CTDI vol (mgy) 10.32 DLP (MGycm) 499 Technique: Multiple CTA images, 2.0 mm slice thickness, obtained chest, abdomen, pelvis, with the high-resolution 64 slice scanner. 80 cc Isovue-370 is administered intravenously. Sagittal and coronal 2-D reconstructions are obtained. 3-D reconstructions, angiographic images are obtained. 3-D postprocessing, including vascular maximum intensity projections. Low dose protocols were performed. One or more of the following dose reduction techniques were used; automated exposure control, adjustment of the mA and/or KV according to patient size, use of iterative reconstruction technique. Findings: No thoracic aortic aneurysmal dilatation or dissection No pulmonary artery emboli. No paratracheal tracheobronchial or bronchopulmonary adenopathy. No pneumonia, pulmonary edema or pleural disease Distended gallbladder No visualized liver or splenic lesion No pancreatic or adrenal mass No abdominal aortic aneurysm dilatation or dissection No bowel obstruction No pericecal inflammatory change Colonic diverticulosis, no diverticulitis Mild wall thickening involving the sigmoid colon No pelvic mass Bladder intact Severe osteopenia IMPRESSION: No thoracic or abdominal aortic aneurysm dilatation or dissection Negative for pulmonary artery emboli No paratracheal tracheobronchial or bronchopulmonary adenopathy. No pneumonia, or pulmonary edema Distended gallbladder, recommend gallbladder sonography follow-up No CT findings of appendicitis or bowel obstruction Mild nonspecific colitis involving the sigmoid colon
[2025-09-21 21:14] LABS: Basophils # (Auto) 0.1 Thou/mm3 (0.0-0.2); Basophils % (Auto) 1 % (0-2.5); Eosinophils # (Auto) 0.2 Thou/mm3 (0.0-0.5); Eosinophils % (Auto) 3 % (0-10); Hematocrit 40.3 % (36.0-46.0); Hemoglobin 13.1 g/dL (12.0-16.0); Immature Granulocytes Auto 0.02 Thou/mm3 (0.00-0.00); Lymphocytes # (Auto) 2.4 Thou/mm3 (1.0-4.8); Lymphocytes % (Auto) 34 % (10-50); Mean Corpuscular HGB Conc 32.5 g/dl (31.0-37.0); Mean Corpuscular Hemoglobin 31.3 pg (25.0-35.0); Mean Corpuscular Volume 96 fL (80-100); Monocytes # (Auto) 0.7 Thou/mm3 (0.0-0.8); Monocytes % (Auto) 10 % (0-12); Neutrophils # (Auto) 3.6 Thou/mm3 (1.8-7.7); Neutrophils % (Auto) 52 % (37-80); Nucleated Red Blood Cell # 0.00 Thou/mm3 (0.00-0.00); Nucleated Red Blood Cell % 0 /100 WBC (0); Platelet Count 248 Thou/mm3 (140-440); RDW Standard Deviation 48.5 fL (36.4-46.3); Red Blood Count 4.18 Miln/mm3 (4.00-5.20); White Blood Count 6.9 Thou/mm3 (3.6-11.0)
[2025-09-21 21:28] LABS: INR 1.0 (0.9-1.3); Partial Thromboplastin Time 26.2 Seconds (22.0-36.0); Prothrombin Time 10.7 Seconds (9.0-12.2)
[2025-09-21 21:31] LABS: B-Type Natriuretic Peptide 259 pg/mL (0-100)
[2025-09-21 21:33] LABS: Alanine Aminotransferase 14 U/L (10-49); Albumin, Serum 4.4 gm/dL (3.4-4.8); Albumin/Globulin Ratio 1.6 (1.2-2.2); Alkaline Phosphatase 88 U/L (46-116); Anion Gap 11 (7-16); Aspartate Amino Transferase 35 U/L (0-34); BUN/Creatinine Ratio 14 Ratio (12-20); Bilirubin,Total 0.4 mg/dL (0.3-1.2); Blood Urea Nitrogen 15 mg/dL (9-23); Calcium 9.2 mg/dL (8.3-10.6); Calcium (Corrected) 9.2 mg/dL (8.5-10.1); Carbon Dioxide 28.2 mMol/L (20.0-31.0); Chloride 104 mMol/L (98-107); Creatinine (Component) 1.1 mg/dL (0.6-1.3); Estimated Creatinine Clearance 34.9 mL/min (>60); Globulin 2.7 gm/dL (2.3-3.5); Glucose 150 mg/dL (74-106); LDH (Lactate Dehydrogenase) 263 U/L (120-246); Magnesium 1.8 mg/dL (1.6-2.6); Osmolality,Calculated 288 (275-295); Potassium 4.2 mMol/L (3.4-5.1); Sodium 143 mMol/L (136-145); Total Protein 7.1 gm/dL (5.7-8.2); Troponin I < 0.020 ng/mL (0.0-0.045); eGFR 52 See Note
[2025-09-21] MEDS: MORPHINE SULF INJ 4 MG/ML VIAL IVP (21:36)
[2025-09-21] MEDS: PROCHLORPERAZINE INJ 5 MG/ML VIAL 2 ML IV (21:36)
[2025-09-21 23:50] LABS: Collection Type, Urine Clean Catch
--- NOTE | 2025-09-22 | XR_ITS ---
Examination: Abdomen sonogram, Limited Date and time of exam: September 22, 2025, 0123 hours INDICATIONS: Abdominal pain beginning 2 years ago Technique: Real-time jasso scale transabdominal sonographic images of the upper abdomen obtained. Findings: Negative for gallstones Normal gallbladder wall 0.2 cm Normal common bile duct 0.3 cm Pancreatic head 2.3 cm Liver 11.8 cm no liver lesions Normal hepatopetal portal venous flow Patent IVC IMPRESSION: Normal gallbladder Normal common bile duct
[2025-09-22 00:16] LABS: Bilirubin,Urine Negative (Negative); Blood,Urine Negative (Negative); Clarity,Urine Clear (Clear/Hazy); Color,Urine Lt-Yellow (Lt Yel-Yel); Culture Indicated,Urine Not Indicated; Glucose, Urine Negative (Negative); Ketones,Urine Negative (Negative); Leukocyte Esterase,Urine Negative (Negative); Nitrite,Urine Negative (Negative); PH,Urine 6.5 (5.0-7.0); Protein,Urine 2+ (Neg - Trace); RBC,Urine 4 /hpf (0-3); Specific Gravity,Urine 1.027 (1.001-1.035); Squamous Epithelial Cell,Urine < 1 /hpf (0-5); Urobilinogen,Urine Negative mg/dL (0.0-1.0); WBC,Urine 2 /hpf (0-5)
[2025-09-22 00:36] LABS: Amphetamine/Methamp Scrn,U Negative (Negative); Barbiturate Screen,Urine Negative (Negative); Benzodiazepines Screen,Urine Negative (Negative); Benzoylecgonine Screen, Ur Negative (Negative); Fentanyl Screen,Urine Positive (Negative); Opiate Screen,Urine Positive (Negative); THC Screen,Urine Negative (Negative)
[2025-09-22] MEDS: MORPHINE SULF INJ 4 MG/ML VIAL IV (00:50)
[2025-09-22 00:52] VITALS: BP 164/96; PULSE 71; RESP 18; O2SAT 94
[2025-09-22 00:53] VITALS: PULSE 72
[2025-09-22] MEDS: ONDANSETRON INJ 2 MG/ML INJ 2 ML 4 MG IVP (02:06)
--- NOTE | 2025-09-22 02:18 | PRELIM_ITS ---
Gallbladder ultrasound. September 22, 2025 at 0123 hours Clinical history: Rule out cholecystitis Comparison: Reference is made to the prior ultrasound report dated June 19, [address] June 20, 2025, no images are available for comparison. Findings: The visualized liver is normal in echogenicity without mass or ductal dilatation. The hepatic veins demonstrate normal spectral pattern. The main portal vein demonstrates hepatopetal flow. The gallbladder is distended and measures 7.7 cm in length. No gallbladder calculus, wall thickening or pericholecystic fluid is identified. The common duct is normal in caliber at 3 mm. No free fluid is demonstrated on the submitted images. The pancreas is obscured by bowel gas. Impression: No sonographic evidence of cholelithiasis, acute cholecystitis or biliary obstruction. Suggest clinical correlation and follow up accordingly. Report Electronically Signed By: Tristian Pugh 09/22/2025 2:17:30 AM [EST]
[2025-09-22 03:10] LABS: Troponin I < 0.020 ng/mL (0.0-0.045)
[2025-09-22 04:54] VITALS: BP 154/93; PULSE 82; RESP 17; O2SAT 96
== END 2025-09-22 04:58 | disposition home or self-care (01) ==
PROVIDERS: Emergency Provider Emergency Medicine
DX: K80.50 Calculus of bile duct without cholangitis or cholecystitis without obstruction (principal); I13.0 Hypertensive heart and chronic kidney disease with heart failure and stage 1 through stage 4 chronic kidney disease, or unspecified chronic kidney disease; N18.9 Chronic kidney disease, unspecified; I50.9 Heart failure, unspecified; K52.9 Noninfective gastroenteritis and colitis, unspecified; K82.8 Other specified diseases of gallbladder; I44.4 Left anterior fascicular block; E78.00 Pure hypercholesterolemia, unspecified; Z95.0 Presence of cardiac pacemaker
CPT/HCPCS: 36415; 71275; 74174; 76705; 80053; 80307; 81001; 83615; 83735; 83880; 84484; 85025; 85610; 85730; 93005; 96365; 96375; 99285; A4649; J0360; J0780; J1100; J1200; J2270; J2405; J7050; Q9967

== ENCOUNTER 2025-09-29 19:53 | Emergency (ER) | payer MEDICARE, OTHER, SELFPAY ==
[2025-09-29 19:54] VITALS: BP 190/96; PULSE 74; RESP 18; TEMP 37; O2SAT 99
[2025-09-29 20:01] VITALS: BMI 21.0
[2025-09-29 20:03] VITALS: BP 206/130; PULSE 74; RESP 15; TEMP 36.7; O2SAT 98
--- NOTE | 2025-09-29 20:05 | XR_ITS ---
Examination: Left hip AP, lateral, AP pelvis 3 views Technique: Hip AP lateral, AP pelvis, 3 views Exam date and time: September 29: 2024, 2030 hours INDICATIONS: Patient fell today with into the left hip, left hip pain. FINDINGS: Severe osteopenia No acute left hip fracture Right hip bones of the pelvis intact IMPRESSION: No acute hip or pelvic fracture .
--- NOTE | 2025-09-29 20:05 | XR_ITS ---
EXAMINATION: Left elbow 2 views TECHNIQUE: AP lateral left elbow 2 views Date and time: September 29, 2025, 2025 hours INDICATIONS: Patient fell today with injury to the elbow, elbow pain. FINDINGS: Prominent osteopenia No fracture or dislocation IMPRESSION: No fracture or dislocation
--- NOTE | 2025-09-29 20:05 | XR_ITS ---
Examination: CT brain head without contrast. 2-D sagittal coronal reconstructions Date and time of exam: September 29, 2025, 2023 hours, comparison from 2023 INDICATIONS: Patient fell today, hit the left side of the head, head pain CTDI: vol (mGy): 44.1 DLP: (mGycm): 897 Technique: Multiple CT axial sections of the brain have been obtained, 5 mm slice thickness. Contrast has not been administered. 2-D sagittal, coronal reconstructions have been obtained Low dose protocols were performed. One or more of the following dose reduction techniques were used; automated exposure control, adjustment of the mA and/or KV according to patient size, use of iterative reconstruction technique. Findings: No significant ventricular enlargement. Axial image 15 demonstrates small area of left frontal subarachnoid hemorrhage Basal cisterns are not remarkable. Fourth ventricle is midline. Cranial vault intact. Impression: Small area subarachnoid hemorrhage involving left frontal lobe. Recommend close clinical observation and short-term follow-up CT brain scan
--- NOTE | 2025-09-29 20:05 | XR_ITS ---
EXAMINATION: Left knee 2 views TECHNIQUE: AP lateral left knee 2 views Date and time: September 29, 2025, 2042 hours INDICATIONS: Patient fell today with injury to the knee, knee pain FINDINGS: Prominent osteopenia No acute fracture No dislocation IMPRESSION: No acute fracture
--- NOTE | 2025-09-29 20:05 | XR_ITS ---
EXAMINATION: Right ankle 2 views TECHNIQUE: AP lateral right ankle 2 views Date and time: September 29, 2025, 2046 hours INDICATIONS: Patient fell today with injury to the ankle, ankle pain. FINDINGS: Severe osteopenia Soft tissue vascular calcification. No fracture or dislocation IMPRESSION: No fracture or dislocation
--- NOTE | 2025-09-29 20:06 | PD.EDHA ---
ED Headache RME/HPI General Chief Complaint: Head Injury Stated Complaint: FALL Time Seen by Provider: 09/29/25 20:04 Arrival date/time: 09/29/25 19:53 74-year-old female patient with significant history of myocardial infarction in the past, pacemaker placement, DVT, COPD, chronic pain syndrome, hypertension, hypothyroidism came in for evaluation regarding ground-level fall. Patient tripped and fell landing on her left side resulting in the pain to the left side of the head, left hip pain, left knee pain, and right ankle pain. Incident of symptoms happened few minutes prior to ER visit severity of pain is mild. No LOC noted. No neck pain no chest pain no back pain. Patient is not taking any blood thinner. Currently patient is under the hospice care due to multiple reasons. According to the family she only had ejection fraction of less than 25%, she is on chronic pain medication fentanyl and Vanderbilt. Related Data Home Medications ?Medication ?Instructions ?Recorded ?Confirmed folic acid 1 mg tablet 1 mg PO QDAY SUPPLEMENT #0 tabs 10/25/13 04/26/25 levothyroxine 75 mcg tablet 75 mcg PO QDAY ##0 04/13/17 04/26/25 (Synthroid) tiotropium bromide 18 mcg capsule 1 cap inhalation QDAY #0 puffs 08/03/17 04/26/25 with inhalation device (Spiriva with HandiHaler) fentanyl 50 mcg/hr transdermal 50 mcg topical Q72H 06/25/18 04/25/25 patch fluoxetine 40 mg capsule (Prozac) 60 mg PO QDAY 02/28/19 04/26/25 Previous Rx's ?Medication ?Instructions ?Recorded hydrocodone 10 mg-acetaminophen 1 tab PO Q6H PRN pain #20 tabs 09/22/24 325 mg tablet atorvastatin 40 mg tablet 40 mg PO QPM 1 month #30 tabs 04/28/25 lisinopril 10 mg tablet 10 mg PO QDAY #30 tabs 04/30/25 ondansetron 4 mg disintegrating 4 mg PO Q4HR PRN nausea and 04/30/25 tablet vomiting #60 tabs pantoprazole 40 mg tablet,delayed 40 mg PO BID #60 tabs 04/30/25 release (Protonix) spironolactone 25 mg tablet 25 mg PO QDAY #30 tabs 04/30/25 ursodiol 300 mg capsule 300 mg PO BID #60 caps 04/30/25 magnesium hydroxide 2,400 mg/10 mL 30 ml PO QDAY PRN constipation #60 06/20/25 oral suspension (Milk Of Magnesia mL Concentrated) magnesium oxide 400 mg PO BID #60 tabs 06/20/25 sennosides 8.6 mg-docusate sodium 2 tab-cap (2 x 8.6-50 mg) PO QDAY 06/20/25 50 mg tablet (Senokot-S) PRN constipation #20 tabs clonidine 0.2 mg/24 hr weekly 0.2 mg topical .weekly #4 ea 09/22/25 transdermal patch ([id number]) sucralfate 100 mg/mL oral 10 ml PO BID #400 mL 09/22/25 suspension Allergies Allergy/AdvReac Type Severity Reaction Status Date / Time Cephalosporins Allergy Severe Rash Verified 09/29/25 19:56 iodine Allergy Severe RASH, HIVES Verified 09/29/25 19:56 levofloxacin Allergy Severe DESTROYS Verified 09/29/25 19:56 FEET TENDONS Penicillins Allergy Severe Rash Verified 09/29/25 19:56 Sulfa (Sulfonamide Allergy Severe Rash Verified 09/29/25 19:56 Antibiotics) cefazolin Allergy Unknown RASH, Verified 09/29/25 19:56 DIFFICULTY BREATHING Review of Systems Review of Systems Narrative Review of Systems: Review of system reviewed and within normal limits except mentioned in HPI ED Exam Narrative Physical exam: VITAL SIGNS: Reviewed. GENERAL APPEARANCE: Alert and interactive, follows commands, no acute distress, HEAD AND FACE: Left sided scalp tenderness ENT: PERRL, pink conjunctivitis, eyelid no trauma, Mucous membrane moist. NECK: Supple, nontender, no nuchal rigidity. CHEST: No tenderness, no crepitus, no paradoxical movement, no retractions. LUNGS: Clear, well ventilated, symmetric, no rales, no wheezing, no ronchi, no stridor, good breath sounds bilaterally. HEART: Regular rate, regular rhythm, no murmur, no gallops. ABDOMEN: Soft, positive bowel sounds, nondistended, no guarding, nontender, no rebound, no masses, RECTAL: Deferred. GENITAL: Deferred. NEUROLOGICAL: Gross motor function intact sensory function intact, Appropriate for age. MUSCULOSKELETAL: low back nontender, full range of motion. EXTREMITIES: Left hip tenderness, no swelling no deformity, left knee tenderness no swelling no deformity right ankle tenderness, no swelling no deformity full range of motion. SKIN: Color pink, dry, no rash, no lacerations, no abrasions, no contusions. LYMPHATICS: Deferred. Course Quality Measures none Orders Category Date Time Status CT head/brain wo con Stat Exams 09/29/25 20:05 Completed XR ankle RT 2V Stat Exams 09/29/25 20:05 Completed XR elbow LT 2V Stat Exams 09/29/25 20:05 Completed XR hip LT w pelvis 2-3V Stat Exams 09/29/25 20:05 Completed XR knee limited LT 2V Stat Exams 09/29/25 20:05 Completed CBC [CBC] Stat Lab 09/29/25 21:01 Completed CMP [Comprehensive Metabolic Panel] Stat Lab 09/29/25 21:01 Completed PT [Prothrombin Time with INR] Stat Lab 09/29/25 21:01 Completed PTT [Partial Thromboplastin Time] Stat Lab 09/29/25 21:01 Completed HYDROcodone/APAP 10/325 [Vanderbilt 10/325] Med 09/29/25 20:05 Discontinued 1 tab PO X1 ONE LORazepam [Ativan Inj] Med 09/29/25 21:05 Discontinued 2 mg IVP X1 ONE Labetalol* IV [Trandate IV] Med 09/29/25 21:05 Discontinued 10 mg IVP X1 ONE hydrALAZINE HCL [Apresoline] Med 09/29/25 20:05 Discontinued 50 mg PO X1 ONE Vital Signs Vital signs: Vital Signs Temperature 98.6 F 09/29/25 19:54 Pulse Rate 74 09/29/25 19:54 Respiratory Rate 18 09/29/25 19:54 Blood Pressure 190/96 H 09/29/25 19:54 Pulse Oximetry (%) 99 09/29/25 19:54 Oxygen Delivery Method Room Air 09/29/25 19:54 Headache MDM Narrative MDM Narrative:: 74-year-old female patient with significant history of myocardial infarction in the past, pacemaker placement, DVT, COPD, chronic pain syndrome, hypertension, hypothyroidism came in for evaluation regarding ground-level fall. Patient tripped and fell landing on her left side resulting in the pain to the left side of the head, left hip pain, left knee pain, and right ankle pain. Incident of symptoms happened few minutes prior to ER visit severity of pain is mild. No LOC noted. No neck pain no chest pain no back pain. Patient is not taking any blood thinner. Currently patient is under the hospice care due to multiple reasons. According to the family she only had ejection fraction of less than 25%, she is on chronic pain medication fentanyl and Vanderbilt. CT scan of the head showed Small area subarachnoid hemorrhage involving left frontal lobe. Recommend close clinical observation and short-term follow-up CT brain scan I spoke with neurosurgeon, Dr. GARCIA from [facility], who told me that patient does not need to be transferred patient is stable we can observe the patient overnight and repeat the CT scan in the morning if any changes worsening of subarachnoid hemorrhage change mentation and we can call him again. For guidance Plan of care discussed with the patient and family who agrees to stay here for observation overnight Care transferred to Dr Hart at 11 pm final disposition Patient data External records reviewed:: None Clinical information provided by:: patient and family Social determinants that could affect healthcare access:: none Patient has the following chronic illnesses:: Chronic pain syndrome hypertension pacemaker DVT COPD hypothyroidism How is presenting disease/condition affected by chronic disease/condition?: exacerbated by Evaluation data The following diagnostics were reviewed and interpreted by me:: lab results and radiology exam(s) Lab and/or radiology exams considered but not ordered:: None Interpretation Summary: See above Medications / Prescriptions Medications or Prescriptions considered but not ordered:: None Medication administrations:: Medication Administration History Discontinued Medications Hydrocodone Bitart/Acetaminophen (Hydrocodone/Apap 10/325 Tab) 1 tab PO X1 ONE Stop: 09/29/25 20:06 Last Admin: 09/29/25 20:16 Dose: 1 tab Documented By: ALEJANDRINA Hydralazine HCl (Hydralazine Hcl 25 Mg Tablet) 50 mg PO X1 ONE Stop: 09/29/25 20:06 Last Admin: 09/29/25 20:16 Dose: 50 mg Documented By: ALEJANDRINA Labetalol HCl (Labetalol Inj 5 Mg/Ml Vial 4 Ml) 10 mg IVP X1 ONE Stop: 09/29/25 21:06 Last Admin: 09/29/25 21:25 Dose: 10 mg Documented By: VIOLET Lorazepam (Lorazepam 2 Mg/Ml Vial) 2 mg IVP X1 ONE Stop: 09/29/25 21:06 Last Admin: 09/29/25 21:25 Dose: 2 mg Documented By: VIOLET See above Consultations Consultation(s) initiated? (list below): No Diagnosis Differential diagnosis headache: subarachnoid hemorrhage, headache and other Most likely diagnosis given after review of the tests above:: Fall, subarachnoid hemorrhage left frontal lobe Admission Indicated Admission indicated?: not indicated Admission Request Was there a request for admission?: No Disposition Plan Disposition Plan: other (specify) Discharge Plan Prescriptions/Referrals Prescriptions/Med Rec: No Action folic acid 1 MG tablet 1 mg PO QDAY Qty: 0 levothyroxine [Synthroid] 75 mcg Tablet 75 mcg PO QDAY Qty: 0 tiotropium bromide [Spiriva with HandiHaler] 18 mcg Capsule, W/Inhalation Device 1 cap INHALATION QDAY Qty: 0 fentanyl 50 mcg/hr Patch 72 Hour 50 mcg Topical Q72H fluoxetine [Prozac] 40 mg Capsule 60 mg PO QDAY atorvastatin 40 mg tablet 40 mg PO QPM 30 Days Qty: 30 1RF ursodiol 300 mg capsule 300 mg PO BID Qty: 60 0RF lisinopril 10 mg tablet 10 mg PO QDAY Qty: 30 0RF pantoprazole [Protonix] 40 mg tablet,delayed release (DR/EC) 40 mg PO BID Qty: 60 0RF ondansetron 4 mg tablet,disintegrating 4 mg PO Q4HR PRN (Reason: nausea and vomiting) Qty: 60 0RF Rx Instructions: SUBLINGUAL USE for nausea spironolactone 25 mg tablet 25 mg PO QDAY Qty: 30 0RF sennosides-docusate sodium [Senokot-S] 8.6-50 mg tablet 2 tab-cap PO QDAY PRN (Reason: constipation) Qty: 20 0RF magnesium hydroxide [Milk Of Magnesia Concentrated] 2,400 mg/10 mL suspension 30 ml PO QDAY PRN (Reason: constipation) Qty: 60 0RF magnesium oxide 400 mg magnesium tablet 400 mg PO BID Qty: 60 0RF hydrocodone-acetaminophen 10-325 mg tablet 1 tab PO Q6H MDD 4 PRN (Reason: pain) Qty: 20 0RF sucralfate 100 mg/mL suspension 10 ml PO BID Qty: 400 0RF clonidine [[id number]-5] 0.2 mg/24 hr patch weekly 0.2 mg topical .weekly Qty: 4 1RF Referrals: No Primary/Family,Physician [Primary Care Provider] - In 1 week Problem List Clinical Impression: Fall, Subarachnoid hemorrhage Patient/Caregiver Discharge Instructions Print Language: Congolese PA/SALES AUDIT CLERK Supervising Physician PA/SALES AUDIT CLERK Supervising Physician: MD Hailey
[2025-09-29 20:16] VITALS: BP 206/130; PULSE 89
[2025-09-29 21:17] LABS: Basophils # (Auto) 0.1 Thou/mm3 (0.0-0.2); Basophils % (Auto) 1 % (0-2.5); Eosinophils # (Auto) 0.3 Thou/mm3 (0.0-0.5); Eosinophils % (Auto) 4 % (0-10); Hematocrit 41.7 % (36.0-46.0); Hemoglobin 13.3 g/dL (12.0-16.0); Immature Granulocytes Auto 0.02 Thou/mm3 (0.00-0.00); Lymphocytes # (Auto) 2.8 Thou/mm3 (1.0-4.8); Lymphocytes % (Auto) 35 % (10-50); Mean Corpuscular HGB Conc 31.9 g/dl (31.0-37.0); Mean Corpuscular Hemoglobin 31.4 pg (25.0-35.0); Mean Corpuscular Volume 98 fL (80-100); Monocytes # (Auto) 0.9 Thou/mm3 (0.0-0.8); Monocytes % (Auto) 11 % (0-12); Neutrophils # (Auto) 3.8 Thou/mm3 (1.8-7.7); Neutrophils % (Auto) 48 % (37-80); Nucleated Red Blood Cell # 0.00 Thou/mm3 (0.00-0.00); Nucleated Red Blood Cell % 0 /100 WBC (0); Platelet Count 244 Thou/mm3 (140-440); RDW Standard Deviation 49.6 fL (36.4-46.3); Red Blood Count 4.24 Miln/mm3 (4.00-5.20); White Blood Count 7.9 Thou/mm3 (3.6-11.0)
[2025-09-29] MEDS: LORazepam 2 MG/ML VIAL IVP (21:25)
[2025-09-29 21:32] LABS: INR 1.0 (0.9-1.3); Partial Thromboplastin Time 26.2 Seconds (22.0-36.0); Prothrombin Time 10.3 Seconds (9.0-12.2)
[2025-09-29 21:35] LABS: Alanine Aminotransferase 20 U/L (10-49); Albumin, Serum 4.3 gm/dL (3.4-4.8); Albumin/Globulin Ratio 1.7 (1.2-2.2); Alkaline Phosphatase 84 U/L (46-116); Anion Gap 11 (7-16); Aspartate Amino Transferase 40 U/L (0-34); BUN/Creatinine Ratio 14 Ratio (12-20); Bilirubin,Total 0.6 mg/dL (0.3-1.2); Blood Urea Nitrogen 14 mg/dL (9-23); Calcium 9.5 mg/dL (8.3-10.6); Calcium (Corrected) 9.5 mg/dL (8.5-10.1); Carbon Dioxide 28.6 mMol/L (20.0-31.0); Chloride 105 mMol/L (98-107); Creatinine (Component) 1.0 mg/dL (0.6-1.3); Estimated Creatinine Clearance 38.4 mL/min (>60); Globulin 2.6 gm/dL (2.3-3.5); Glucose 86 mg/dL (74-106); Osmolality,Calculated 288 (275-295); Potassium 4.3 mMol/L (3.4-5.1); Sodium 145 mMol/L (136-145); Total Protein 6.9 gm/dL (5.7-8.2); eGFR 59 See Note
[2025-09-29 22:01] VITALS: BP 112/67; PULSE 78; RESP 14; O2SAT 95
--- NOTE | 2025-09-29 22:09 | PC.NURSE ---
FAXED INFORMATION TO [facility], CALLED AND TALKED TO JOSE QUIJANO AND SHE TALKED TO DAVID BURK.
[2025-09-29 23:16] VITALS: BP 124/74; PULSE 66; RESP 16; TEMP 36.8; O2SAT 95
[2025-09-30 00:16] VITALS: BP 121/66; PULSE 76; RESP 20; TEMP 37.2; O2SAT 95
--- NOTE | 2025-09-30 00:45 | PD.EDADDENDU ---
Emergency Room Addendum Addendum Narrative: I took over the care from Erma Lobo NP at _11PM_ on _09/29/25_. See previous notes for complete H & P and ED course. I reviewed all diagnostic test results. Diagnoses include: Small traumatic left frontal subarachnoid hemorrhage Discussed the case with Dr. Mcnamara ([facility] Neurosurgeon). About the presentation and exam and diagnostics and treatments here. And need of further care there. Recommended close monitoring and repeat head CT in AM. And calling him with mental status change during the night or worsening head CT in AM. At 6 AM on 09/30/2025, the care of the patient was transferred to Dr. DAMICO. During my watch, the patient remained stable. Simeon Hart MD
[2025-09-30 03:32] VITALS: BP 139/70; PULSE 83; RESP 16; TEMP 36.6; O2SAT 97
[2025-09-30 04:38] VITALS: BP 154/75; PULSE 77; RESP 16; TEMP 36.6; O2SAT 96
[2025-09-30] MEDS: HYDROcodone/APAP 5/325 TABLET 2 TAB PO (06:00)
--- NOTE | 2025-09-30 06:02 | EDNOTE_ITS ---
Emergency Room Addendum Addendum Narrative: 0600: Care assumed from Dr. Hart (emergency physician). Past medical, surgical, social and family history reviewed. Vitals and home medications reviewed. Results and treatment plan discussed. They will assume the care of the patient at this time and will follow the patient, pending repeat head/brain CT. The following addendum documentation note is intended to reflect any pending information, findings, or radiology results not included in the patient?s initial chart by the previous shift scribe. Patient woke up c/o headache and was treated with [place] 5/325. 0645: repeat Head/Brain CT ordered. RADIOLOGY Head/Brain CT: Findings: No significant ventricular enlargement. Stable small area, 3 mm, of hemorrhage density, subarachnoid in the left frontal sulci axial image 12 No new areas of hemorrhage No mass effect or midline shift Basal cisterns are not remarkable. Fourth ventricle is midline. Cranial vault intact. Impression: Stable tiny area of subarachnoid hemorrhage left frontal sulci No new hemorrhage or interval mass effect Chest CT: Findings: Thoracic aorta pulmonary arteries intact No hemopericardium Transvenous dual-chamber bipolar cardiac leads satisfactory position No pneumothorax pulmonary contusion or hemothorax Severe osteopenia No acute vertebral body compression fractures Sternal segments appear intact Ribs appear intact No visualized liver splenic or renal laceration Distended gallbladder No pancreatic mass Visualized abdominal aorta intact IMPRESSION: Thoracic aorta pulmonary arteries intact No hemopericardium, pneumothorax, pulmonary contusion or hemothorax Osseous structures are severely demineralized, no acute fractures depicted 0750: I have spoken with the patient and discussed today?s findings, in addition to providing specific details for the plan of care. Questions are answered and there is an agreement with the plan. Re-assessment at the time of disposition demonstrates that the patient is in no acute distress. The patient has remained stable throughout the entire ED visit and is without objective evidence for acute process requiring urgent intervention or hospitalization. The patient is stable for discharge; counseling is provided and documented as above, discussing symptomatic treatment and specific conditions for return.
[2025-09-30] MEDS: ONDANSETRON INJ 2 MG/ML INJ 2 ML 4 MG IVP ×2 (06:10→07:41)
[2025-09-30 06:17] VITALS: BP 166/81; PULSE 70; RESP 16; TEMP 36.6; O2SAT 95
--- NOTE | 2025-09-30 06:44 | XR_ITS ---
Examination: CT brain head without contrast. 2-D sagittal coronal reconstructions Date and time of exam: September 30, 2025, 0711 hours INDICATIONS: Patient slipped and fell last night COMPARISON: September 29, 2025 0825 hours CTDI: vol (mGy): 44.7 DLP: (mGycm): 876 Technique: Multiple CT axial sections of the brain have been obtained, 5 mm slice thickness. Contrast has not been administered. 2-D sagittal, coronal reconstructions have been obtained Low dose protocols were performed. One or more of the following dose reduction techniques were used; automated exposure control, adjustment of the mA and/or KV according to patient size, use of iterative reconstruction technique. Findings: No significant ventricular enlargement. Stable small area, 3 mm, of hemorrhage density, subarachnoid in the left frontal sulci axial image 12 No new areas of hemorrhage No mass effect or midline shift Basal cisterns are not remarkable. Fourth ventricle is midline. Cranial vault intact. Impression: Stable tiny area of subarachnoid hemorrhage left frontal sulci No new hemorrhage or interval mass effect
--- NOTE | 2025-09-30 07:04 | XR_ITS ---
Examination: CT chest, without intravenous contrast. Sagittal and coronal 2-D reconstructions. Exam date and time: September 30, 2025, 0712 hours, comparison September 21, 2025 INDICATIONS: Patient slipped and fell 12 hours ago with injury to the chest, left rib and left chest pain difficulty breathing today CTDI:vol (mGy) 13.81 DLP: (mGycm) 596 Technique: Multiple 3.0 mm axial sections of the chest to been obtained. Bone and lung density settings are obtained. Sagittal and coronal 2-D reconstructions have been obtained. Low dose protocols were performed. One or more of the following dose reduction techniques were used; automated exposure control, adjustment of the mA and/or KV according to patient size, use of iterative reconstruction technique. Findings: Thoracic aorta pulmonary arteries intact No hemopericardium Transvenous dual-chamber bipolar cardiac leads satisfactory position No pneumothorax pulmonary contusion or hemothorax Severe osteopenia No acute vertebral body compression fractures Sternal segments appear intact Ribs appear intact No visualized liver splenic or renal laceration Distended gallbladder No pancreatic mass Visualized abdominal aorta intact IMPRESSION: Thoracic aorta pulmonary arteries intact No hemopericardium, pneumothorax, pulmonary contusion or hemothorax Osseous structures are severely demineralized, no acute fractures depicted
[2025-09-30] MEDS: MORPHINE SULF INJ 4 MG/ML VIAL IVP (07:41)
--- NOTE | 2025-09-30 08:23 | PC.CC ---
Екатерина SINGH was consulted regarding transportation for patient back home. Екатерина SINGH made face to face contact with patient introduced self, role, and reason for visit. Patient reports her is able to pick her up and transport her back home.
== END 2025-09-30 09:06 | disposition home or self-care (01) ==
PROVIDERS: Nurse Practitioner Family; Emergency Provider Emergency Medicine
DX: S06.6X0A Traumatic subarachnoid hemorrhage without loss of consciousness, initial encounter (principal); S29.9XXA Unspecified injury of thorax, initial encounter; S59.902A Unspecified injury of left elbow, initial encounter; M25.552 Pain in left hip; M25.562 Pain in left knee; M25.571 Pain in right ankle and joints of right foot; W01.0XXA Fall on same level from slipping, tripping and stumbling without subsequent striking against object, initial encounter
CPT/HCPCS: 36415; 70450; 71250; 73070; 73502; 73560; 73600; 80053; 85025; 85610; 85730; 96374; 96375; 96376; 99284; J1920; J2060; J2270; J2405; A9270